=== PATIENT | female | born 1970 | race Caucasian/White ===

== ENCOUNTER 2023-01-20 08:08 | Outpatient (OUT) | payer OTHER, SELFPAY | END 2023-01-20 08:09 | disposition home or self-care (01) | LOC: VC 08:09 | PROVIDERS: PCP Radiology Diagnostic Radiology; Visit Provider Radiology Diagnostic Radiology | DX: I83.813 Varicose veins of bilateral lower extremities with pain (principal) ==

== ENCOUNTER 2023-02-05 07:57 | Outpatient (OUT) | payer OTHER, SELFPAY ==
--- NOTE | 2023-02-05 07:58 | VEIN_ITS ---
Patient: NICOLE DOWLING Exam Date: 02/05/2023 : 1970 Gender:F Ordering : DR HEMAL JONES M.D. Admission #: [id number] Family : Order #: [id number] CLICK HERE TO VIEW EXAM RADIOLOGY REPORT PROCEDURE: VC EXT VENOUS REFLUX FELTON LMTD COMPARISON: None. INDICATIONS: I83.813 Pain due to varicose veins of bilateral legs TECHNIQUE: Duplex imaging of the lower extremity to assess the deep and superficial venous system for the presence of deep or superficial venous incompetence and to document the location and severity of disease. The study includes evaluation of the great saphenous vein (GSV), anterior accessory saphenous vein (AASV) and small saphenous vein (SSV). Patient scanned in reverse Trendelenburg and standing. FINDINGS: RIGHT LOWER EXTREMITY: Saphenofemoral Junction Reflux: Yes 9.9mm 3.5 sec GSV: Diam (mm) Reflux/ Time (sec) Proximal Thigh 8.3 Yes 3.3 Mid Thigh 5.2 Yes 2.5 Distal Thigh 3.3 Yes 2.1 Prox Calf 2.6 Yes 0.8 Mid Calf 3.6 Yes 2.1 Saphenopopliteal Junction Reflux: 4.1mm Yes 1.3 SSV: Proximal Calf 4.2 Yes 0.7 Mid Calf 3.3 Yes 1.1 AASV: Not present Proximal Thigh Mid Thigh Distal Thigh Thrombi: No acute or chronic thrombus. Compressibility: Normal. Flow: Mild-moderate deep venous reflux. Preforator: Dist medial lower leg 2.9 mm with 1.6s reflux. Popliteal fossa 3.1 mm with 0.6s reflux. Tech Note: Incompetent varicose vein distal anterior thigh measures 3.4 mm with 3.3s reflux. Varicose vein in popliteal fossa arising from scada engineer measures 2.3 mm with 0.3s reflux. Mid medial lower leg varicose vein measures 4.0 mm with 1.6s reflux. LEFT LOWER EXTREMITY: Saphenofemoral Junction Reflux: Yes 9.5 mm 2.7 sec GSV: Diam (mm) Reflux/Time (sec) Proximal Thigh 7.7 Yes 2.9 Mid Thigh 4.3 Yes 1.3 Distal Thigh 4.0 Yes 1.1 Prox Calf 2.5 Yes 0.4 Mid Calf 1.8 Yes 0.4 Saphenopopliteal Junction Relux: 3.0 mm Yes 3.3 SSV: Proximal Calf 2.4 Yes 0.5 Mid Calf 2.2 Yes 0.2 AASV: Proximal Thigh 3.6 No Mid Thigh 1.9 No Distal Thigh Thrombi: No acute or chronic thrombus. Compressibility: Normal. Flow: Mild deep venous reflux. Paint Laboratory Technician: Dist medial lower leg measures 3.4mm with 0.7s reflux. Proximal medial calf measures 4.1 mm with 0.7s reflux. Tech Note: Incompetent varicose vein proximal medial lower leg measures 2.8 mm with 4.1s reflux. Distal medial lower leg varicosity measures 2.6 mm with 0.6s reflux. CONCLUSION: 1. Abnormally dilated and incompetent great saphenous veins bilaterally. 2. Multiple dilated and incompetent branch saphenous varicosities bilaterally. Dictated by: Binh Grimes M.D. on 02/05/2023 at 09:46 Approved by: Binh Grimes M.D. on 02/05/2023 at 10:16
--- NOTE | 2023-02-05 07:58 | VEIN_ITS ---
Patient: NICOLE DOWLING Exam Date: 02/05/2023 : 1970 Gender:F Ordering : DR HEMAL JONES M.D. Admission #: [id number] Family : Order #: [id number] CLICK HERE TO VIEW EXAM RADIOLOGY REPORT PROCEDURE: [facility]ACILITY EST COMPREHENSIVE VEIN CENTER - OFFICE VISIT INITIAL COMPARISON: None. PROGRESS NOTES: [age] year old female who presents with a 35 year history of dilated discolored veins and mild leg swelling. The patient's right leg symptoms are worse than the left. There has been a progression of symptoms over past 35 years. This increases with prolonged leg dependency. The patient describes an improvement with rest, elevation, and exercise. The patient denies any signs and symptoms to suggest arterial ischemia. The patient describes a family history varicose veins on maternal side and and siblings. The patient has drinking and smoking history of : Occasional alcohol consumption; no tobacco use. Patient has a past medical history significant for soft: None. The patient denies a history of deep venous thrombus or pulmonary embolus. See separate history and physical for medication list. No prior treatment for varicose or spider veins. Current use of compression stockings. After review of nurse notes, history and physical exam I discussed at length the pathophysiology of venous hypertension and possible treatments, therapies and strategies available. We discussed at length the importance of elevating the lower extremities above the level of the heart, increased physical activity and compression stocking use. Ultrasound venous reflux study performed today was discussed at length with the patient. The report demonstrates abnormally dilated and incompetent great saphenous vein bilaterally with multiple dilated and incompetent branch saphenous varicosities bilaterally.. PHYSICAL EXAM: The right leg demonstrates multiple varicosities, enumerable spider veins, no ulceration, mild edema, no skin discoloration. The left leg demonstrates multiple varicosities, enumerable spider veins, no ulceration, mild edema, no skin discoloration. Both thighs, legs and feet were symmetrically warm to the touch. Good posterior tibial and dorsalis pedis pulses were present bilaterally. VEIN/[facility] Facility EST Comprehensive IMPRESSION: 1. Bilateral lower extremity venous insufficiency 2. Bilateral lower extremity varicose veins 3. Mild bilateral lower extremity subcutaneous edema 4. No flow significant arterial disease 5. CEAP: C3, EC, , VT PLAN: 1. Continued use of compression stockings 2. Elevated legs and increased physical activity symptomatic relief 3. Endovenous laser ablation of right great saphenous vein. 4. Microfoam chemical ablation of incompetent branch saphenous varicosities bilaterally. 5. Bilateral sclerotherapy for extensive reticular and spider veins. Nurse notes, history and physical were reviewed and confirmed, see attached forms. The nurse was present throughout the physical exam and consultation Dictated by: Binh Grimes M.D. on 02/05/2023 at 10:41 Approved by: Binh Grimes M.D. on 02/05/2023 at 10:50
== END 2023-02-05 07:58 | disposition home or self-care (01) ==
LOC: VC 07:57
PROVIDERS: PCP Radiology Diagnostic Radiology; Visit Provider Radiology Diagnostic Radiology
DX: I83.813 Varicose veins of bilateral lower extremities with pain (principal)
CPT/HCPCS: 93970; G0463

== ENCOUNTER 2023-03-14 08:33 | Outpatient (OUT) | payer OTHER, SELFPAY ==
--- NOTE | 2023-03-14 08:34 | VEIN_ITS ---
[address] [address] Patient Name: NICOLE DOWLING MRN: [id number] date: 1970 Sex: F Assigned Patient Location: Current Patient Location: Accession/Order Number: [id number] Exam Date: 03/14/2023 08:35 Report Date: 03/14/2023 09:55 At the request of: HEMLA JONES Procedure: VC Endovenous Ablation 1VeinRT EXAMINATION: VC Endovenous Ablation 1VeinRT HISTORY: I83.813 Painful varicose veins of bilat lower extremities The risks and benefits of the procedure had been previously discussed, and were rediscussed at length. Informed written consent was obtained. Román Bundy RN and Kisha Sarah RDMS, RVT assisted. Time out procedure was performed. The right lower extremity was prepared and draped in the usual sterile fashion to allow knee flexion in the sterile field. Duplex ultrasound probe was draped in a sterile cover, sterile transmission gel was used. Venous mapping was performed with the areas of dilation and large tributaries marked. The total length was 58 cm from the entry 6 cm above the ankle to 3 cm below the Saphenofemoral junction. The diameter of the right great saphenous vein ranged from 8.3 mm. A 30 gauge needle and 1% buffered lidocaine was used to anesthetize the entry site. A 4 mm incision was made with a scalpel and the saphenous vein was entered percutaneously under direct ultrasound guidance with a micropuncture set, a single stick was successful in gaining access. A micro-guide wire was inserted and the needle removed. A micro-set including a dilator was inserted over the microwire and the needle and dilator were removed. A guide wire was inserted through the micro-set and guided through the saphenous vein to the saphenofemoral junction. The dilator was removed and an introducer sheath was inserted over the wire until the end of the sheath entered the saphenofemoral junction. The dilator and wire were removed and the 600 micron fiber was introduced and placed and positioned so that it extended beyond the sheath and was 3 cm distal to the saphenofemoral or saphenopopliteal junction. Final position of the fiber was determined by ultrasound guidance and duplex imaging. Tumescent anesthetic was delivered by ultrasound guidance. 325 cc of fluid was delivered along the entire course of the saphenous vein. The solution consisted of 1000 cc of normal saline with 40 mL of 1% lidocaine and 20 mL of sodium bicarbonate. A final positioning check was made. The energy source was turned on by means of the foot pedal and the fiber and sheath were withdrawn. The total number of Joules delivered was 2856. The laser was active for 357 seconds under continuous pulse, average laser use of 8 J. Laser start time 9:40 AM, 03/14/2023. Laser stop time 9:49 AM, 03/14/2023. A duplex ultrasound revealed compressibility and flow at the saphenofemoral junction immediately after the procedure. Hemostasis at the access site was achieved. The skin incision of the saphenous vein was closed with a 4 x 4. A compression stocking was applied. Postop instructions were given. A follow up appointment was recommended and scheduled. The patient tolerated the procedure well. Electronically authenticated by: RIDDHI REIS Date: 03/14/2023 09:55
[2023-03-14] MEDS: 0.9 % SODIUM CHLORIDE 500 ML, LIDOCAINE HCL 20 ML, SODIUM BICARBONATE 10 MEQ INJ (09:02)
== END 2023-03-14 08:34 | disposition home or self-care (01) ==
LOC: VC 08:33
PROVIDERS: PCP Radiology Diagnostic Radiology; Visit Provider Radiology Diagnostic Radiology
DX: I83.813 Varicose veins of bilateral lower extremities with pain (principal)
CPT/HCPCS: 36478

== ENCOUNTER 2023-03-21 10:51 | Outpatient (OUT) | payer OTHER, SELFPAY ==
--- NOTE | 2023-03-21 10:59 | VEIN_ITS ---
Patient: NICOLE DOWLING Exam Date: 03/21/2023 : 1970 Gender:F Ordering : DR ELIJAH COCHRAN M.D. Admission #: [id number] Family : Order #: [id number] CLICK HERE TO VIEW EXAM RADIOLOGY REPORT PROCEDURE: [facility]ACILITY EST LMTD VEIN CENTER - OFFICE VISIT FOLLOW UP COMPARISON: None. PROGRESS NOTES: The patient reports no significant problems following intravenous laser ablation of the right great saphenous vein. The patient did not require oral analgesics. The patient has worn her compression stocking. The patient has followed our recommendations to walk 20-30 minutes once or twice per day since the procedure. Physical exam demonstrates a few small areas of bruising likely related to tumescence injection. Thrombosed right great saphenous vein can be partially palpated. No areas of erythema or warmth to suggest cellulitis. No active ulceration. Review of the ultrasound performed the same day demonstrates occlusive thrombus extending throughout the treated right great saphenous vein. Heat induced thrombus is 2.5 cm from the saphenofemoral junction. No deep vein thrombus The patient expressed a desire to proceed with treatment of incompetent right leg varicose veins with micro foam chemical ablation. The patient would like to delay treatment of the left leg at this time. VEIN/VC Facility EST LMTD IMPRESSION: 1. Successful ablation of the right great saphenous vein 2. Persistent bilateral incompetent varicose veins. PLAN: Micro foam chemical ablation right leg incompetent varicose veins Nurse notes, history and physical were reviewed and confirmed, see attached forms. The nurse was present throughout the physical exam and consultation Dictated by: Elijah Cochran MD on 03/21/2023 at 12:43 Approved by: Elijah Cochran MD on 03/21/2023 at 12:48
--- NOTE | 2023-03-21 10:59 | VEIN_ITS ---
Patient: NICOLE DOWLING Exam Date: 03/21/2023 : 1970 Gender:F Ordering : DR ELIJAH COCHRAN M.D. Admission #: [id number] Family : Order #: [id number] CLICK HERE TO VIEW EXAM RADIOLOGY REPORT PROCEDURE: VC EXT VENOUS RT LMTD COMPARISON: None. INDICATIONS: I80.01 Phlebitis of superficial veins of right lower extremity TECHNIQUE: Lower extremity mckenna scale and Duplex Doppler evaluation of the deep venous system from the inguinal ligament through the calf veins. FINDINGS: REGION: Right lower extremity. THROMBI: Negative for DVT. Heat induced thrombus in right GSV 2.5 cm from SFJ and extends to distal lower leg. COMPRESSIBILITY: Non-compressible segments corresponding to thrombus. FLOW: Absent flow corresponding to thrombus OTHER: Multiple small varicosities remain. CONCLUSION: Post ablation occlusion of the right great saphenous vein with heat induced thrombus 2.5 cm from the saphenofemoral junction Dictated by: Elijah Cochran MD on 03/21/2023 at 11:19 Approved by: Elijah Cochran MD on 03/21/2023 at 11:21
== END 2023-03-21 10:52 | disposition home or self-care (01) ==
LOC: VC 10:52
PROVIDERS: PCP Radiology Diagnostic Radiology; Visit Provider Radiology Diagnostic Radiology
DX: I80.01 Phlebitis and thrombophlebitis of superficial vessels of right lower extremity (principal)
CPT/HCPCS: 93971; G0463

== ENCOUNTER 2023-03-25 10:34 | Outpatient (OUT) | payer OTHER, SELFPAY ==
--- NOTE | 2023-03-25 | VEIN_ITS ---
[address] [address] Patient Name: NICOLE DOWLING MRN: [id number] date: 1970 Sex: F Assigned Patient Location: Current Patient Location: Accession/Order Number: [id number] Exam Date: 03/25/2023 10:40 Report Date: 03/25/2023 15:07 At the request of: HEMAL JONES Procedure: VC INJ Foam Sclerosant WUS TOBACCO STEMMER MACHINE PROCEDURE: VC INJ Foam Sclerosant WUS TOBACCO STEMMER MACHINE COMPARISON: None. HISTORY: Pain due to varicose veins of bilateral legs I83.813 Pre-operative Diagnosis: CEAP class C3 venous insufficiency with pain, tenderness, edema and incompetent saphenous in varicose vein(s), chronic venous insufficiency right leg secondary to venous incompetence Post-operative Diagnosis: CEAP class C3 venous insufficiency with pain, tenderness, edema and incompetent saphenous in varicose vein(s), chronic venous insufficiency right leg secondary to venous incompetence Procedure Performed: 1. Ultrasound-guided microfoam chemical ablation with Varithenaregistered 2. Intraoperative ultrasound guidance Anesthesia: None Indications for Procedure: 52-year-old female who presents with lower extremity pain and swelling. The patient failed year conservative medical therapy including medical compression stockings, exercise and analgesics. Prior procedures include . Multiple incompetent varicosities of the right leg. Duplex scan showed reflux and enlarged diameters up to 4 mm. The patient underwent informed consent including management options where the complications of infection, bleeding, pain, and skin injury were discussed. Particular attention was spent discussing thrombus extension and deep vein thrombosis as well as the possibility of pulmonary embolus and treatment with oral or injectable blood thinners. Procedure: The patient walked to the procedure room. All applicable staff donned appropriate apparel. A procedure timeout was performed to confirm correct patient, correct extremity, correct procedure, and correct room set-up including presence of all applicable supplies, devices, and drugs. A duplex ultrasound, performed by myself confirmed the location and incompetence of branch saphenous varicosities and their course was marked on the skin together with the dilated tributaries. The extent of treatment of the vein and the associated varicosities was determined through ultrasound mapping. The skin was prepped and then punctured with a butterfly needle and advanced under ultrasound guidance. The Varithenaregistered canister was activated and the canister was primed and purged as required in the instructions for use. Varithenaregistered was drawn into a sterile syringe. Following the injections are made: 6 cc right distal medial leg 4 cc right mid medial thigh 2 cc right lateral medial lower leg 1 cc anterior lateral thigh 2 cc anterior mid thigh Varithenaregistered was slowly administered at 0.5-1.0 cc/second with close observation by ultrasound of its course in the vessels. Total volume utilized was: 15 cc. Following administration of Varithenaregistered the leg was elevated and the patient was asked to repeatedly dorsiflex the ankle to limit flow of Varithenaregistered into perforating veins. Once appropriate spasm had been confirmed in the treated veins, the vascular catheter was removed from the leg and light pressure was applied over the puncture site for hemostasis. The common femoral and deep superficial veins were then evaluated for flow and compressibility prior to dressing placement. The lower extremity was kept elevated at 45 degrees above the horizontal and cording material was applied over the saphenous segments and tributaries to allow for eccentric compression over the target vessels including the targeted saphenous vein(s). A multilayer dressing was applied consisting of foam pads, coban and thigh-high 20-30 mm Hg compression elastic support hose were placed on the patient. The leg was lowered only after compression had been applied and the patient was immediately ambulatory. The patient ambulated 10 minutes under supervision and was without apparent concerns at time of release. Post-care instructions include advising patient to keep post-treatment bandages in place and dry for 48 hours, avoid extended periods of inactivity, avoid heavy exercise for one week, wear compression stockings on the treated leg continuously for two weeks, to walk daily for 10 minutes over the next month. The patient was instructed to take an anti-inflammatory medicine as needed and to follow up for color duplex scan of the Saphenous veins, the treated branch saphenous varicosities, the adjacent deep veins, and additional treatment within 7 days. PERSONNEL: Rafia Dan RN Electronically authenticated by: HEMAL JONES Date: 03/25/2023 15:07
== END 2023-03-25 10:35 | disposition home or self-care (01) ==
LOC: VC 10:35
PROVIDERS: PCP Radiology Diagnostic Radiology; Visit Provider Radiology Diagnostic Radiology
DX: I83.813 Varicose veins of bilateral lower extremities with pain (principal)
CPT/HCPCS: 36466

== ENCOUNTER 2023-03-31 11:27 | Outpatient (OUT) | payer OTHER, SELFPAY ==
--- NOTE | 2023-03-31 11:29 | VEIN_ITS ---
Patient: NICOLE DOWLING Exam Date: 03/31/2023 : 1970 Gender:F Ordering : DR ELIJAH COCHRAN M.D. Admission #: [id number] Family : Order #: [id number] CLICK HERE TO VIEW EXAM RADIOLOGY REPORT PROCEDURE: [facility] EST LMTD VEIN CENTER - OFFICE VISIT FOLLOW UP [facility]PARISON: [facility]. PROGRESS NOTES: The patient reports no significant problems following micro chemical ablation of right leg incompetent varicose veins. The patient did wear her compression stockings. The patient complains of some minor pain but did not require oral analgesics. The patient has followed our recommendations to walk 20-30 minutes once or twice per day since the procedure. Physical exam demonstrates 3 areas of bruising in the right thigh the largest measuring 4 cm in diameter. Scattered thrombosed varicose veins both patent and thrombosed can be palpated. No areas of erythema or warmth to suggest cellulitis or thrombophlebitis. No active ulceration Review of the ultrasound performed the same day demonstrates occlusive thrombus extending throughout the treated right leg varicose veins. Bilateral incompetent varicose veins remain. The patient expressed a desire to proceed with treatment of incompetent varicose veins with micro foam chemical ablation. VEIN/[facility] EST TD IMPRESSION: 1. Successful ablation of treated right leg incompetent varicose veins 2. Persistent bilateral incompetent varicose veins. PLAN: Micro foam chemical ablation bilateral incompetent varicose veins Nurse notes, history and physical were reviewed and confirmed, see attached forms. The nurse was present throughout the physical exam and consultation Dictated by: Elijah Cochran MD on 03/31/2023 at 14:15 Approved by: Elijah Cochran MD on 03/31/2023 at 14:17
--- NOTE | 2023-03-31 11:29 | VEIN_ITS ---
Patient: NICOLE DOWLING Exam Date: 03/31/2023 : 1970 Gender:F Ordering : DR ELIJAH COCHRAN M.D. Admission #: [id number] Family : Order #: [id number] CLICK HERE TO VIEW EXAM RADIOLOGY REPORT PROCEDURE: VC EXT VENOUS RT LMTD COMPARISON: VC EXT VENOUS RT LMTD, 03/21/2023. INDICATIONS: I80.01 Phlebitis of superficial veins of rt lower extremity TECHNIQUE: Lower extremity mckenna scale and Duplex Doppler evaluation of the deep venous system from the inguinal ligament through the calf veins. FINDINGS: REGION: Right lower extremity. THROMBI: Negative for DVT. Varithena induced thrombus visualized at mid/med calf, mid/ant calf, mid/ant thigh, and mid/lat thigh. COMPRESSIBILITY: Non-compressible segments. FLOW: Areas of no flow. OTHER: Multiple varicose veins remain with the largest measuring 3.4mm with 1.1s reflux. CONCLUSION: Post ablation occlusion of treated right leg varicose veins Dictated by: Elijah Cochran MD on 03/31/2023 at 11:52 Approved by: Elijah Cochran MD on 03/31/2023 at 11:54
== END 2023-03-31 11:28 | disposition home or self-care (01) ==
LOC: VC 11:27
PROVIDERS: PCP Radiology Diagnostic Radiology; Visit Provider Radiology Diagnostic Radiology
DX: I80.01 Phlebitis and thrombophlebitis of superficial vessels of right lower extremity (principal); I83.93 Asymptomatic varicose veins of bilateral lower extremities
CPT/HCPCS: 93971; G0463

== ENCOUNTER 2023-04-16 09:11 | Outpatient (OUT) | payer OTHER, SELFPAY ==
--- NOTE | 2023-04-16 | VEIN_ITS ---
[address] [address] Patient Name: NICOLE DOWLING MRN: [id number] date: 1970 Sex: F Assigned Patient Location: Current Patient Location: Accession/Order Number: [id number] Exam Date: 04/16/2023 08:55 Report Date: 04/16/2023 10:47 At the request of: HEMAL JONES Procedure: VC INJ Foam Sclerosant WUS BIBLICAL STUDIES PROFESSOR PROCEDURE: VC INJ Foam Sclerosant WUS BIBLICAL STUDIES PROFESSOR, right leg No charge for the left leg COMPARISON: None. HISTORY: Pain due to varicose veins of bilateral legs I83.813 Pre-operative Diagnosis: CEAP class C3 venous insufficiency with pain, tenderness, edema and incompetent right great saphenous and varicose vein(s), chronic venous insufficiency right leg secondary to venous incompetence Post-operative Diagnosis: CEAP class C3 venous insufficiency with pain, tenderness, edema and incompetent right great saphenous and varicose vein(s), chronic venous insufficiency right leg secondary to venous incompetence Procedure Performed: 1. Ultrasound-guided microfoam chemical ablation with Varithenaregistered 2. Intraoperative ultrasound guidance Anesthesia: None Indications for Procedure: 52-year-old female who presents with a long history of lower extremity pain and swelling. The patient failed conservative medical therapy including medical compression stockings, exercise and analgesics. Prior procedures include . Multiple incompetent varicosities of the right leg. Duplex scan showed reflux and enlarged diameters up to 4 mm. The patient underwent informed consent including management options where the complications of infection, bleeding, pain, and skin injury were discussed. Particular attention was spent discussing thrombus extension and deep vein thrombosis as well as the possibility of pulmonary embolus and treatment with oral or injectable blood thinners. Procedure: The patient walked to the procedure room. All applicable staff donned appropriate apparel. A procedure timeout was performed to confirm correct patient, correct extremity, correct procedure, and correct room set-up including presence of all applicable supplies, devices, and drugs. A duplex ultrasound, performed by myself confirmed the location and incompetence of branch saphenous varicosities and their course was marked on the skin together with the dilated tributaries. The extent of treatment of the vein and the associated varicosities was determined through ultrasound mapping. The skin was prepped and then punctured with a butterfly needle and advanced under ultrasound guidance. The Varithenaregistered canister was activated and the canister was primed and purged as required in the instructions for use. Varithenaregistered was drawn into a sterile syringe. The following injections were made: 4 cc of left mid posterior calf, 3 mm vein 3 cc left proximal calf, 3 mm veins 3 cc right proximal calf, 3 mm vein 4 cc left posterior lateral thigh, 4 mm vein Varithenaregistered was slowly administered at 0.5-1.0 cc/second with close observation by ultrasound of its course in the vessels. Total volume utilized was: 15cc. Following administration of Varithenaregistered the leg was elevated and the patient was asked to repeatedly dorsiflex the ankle to limit flow of Varithenaregistered into perforating veins. Once appropriate spasm had been confirmed in the treated veins, the vascular catheter was removed from the leg and light pressure was applied over the puncture site for hemostasis. The common femoral and deep superficial veins were then evaluated for flow and compressibility prior to dressing placement. The lower extremity was kept elevated at 45 degrees above the horizontal and cording material was applied over the saphenous segments and tributaries to allow for eccentric compression over the target vessels including the targeted saphenous vein(s). A multilayer dressing was applied consisting of foam pads, coban and thigh-high 20-30 mm Hg compression elastic support hose were placed on the patient. The leg was lowered only after compression had been applied and the patient was immediately ambulatory. The patient ambulated 10 minutes under supervision and was without apparent concerns at time of release. Post-care instructions include advising patient to keep post-treatment bandages in place and dry for 48 hours, avoid extended periods of inactivity, avoid heavy exercise for one week, wear compression stockings on the treated leg continuously for two weeks, to walk daily for 10 minutes over the next month. The patient was instructed to take an anti-inflammatory medicine as needed and to follow up for color duplex scan of the Saphenous veins, the treated branch saphenous varicosities, the adjacent deep veins, and additional treatment within 7 days. PERSONNEL: Román Bundy RN Electronically authenticated by: HEMAL JONES Date: 04/16/2023 10:47
== END 2023-04-16 09:12 | disposition home or self-care (01) ==
LOC: VC 09:11
PROVIDERS: PCP Radiology Diagnostic Radiology; Visit Provider Radiology Diagnostic Radiology
DX: I83.813 Varicose veins of bilateral lower extremities with pain (principal)
CPT/HCPCS: 36466

== ENCOUNTER 2023-04-23 08:27 | Outpatient (OUT) | payer OTHER, SELFPAY ==
--- NOTE | 2023-04-23 08:32 | VEIN_ITS ---
Patient Name NICOLE DOWLING MR# Age Sex Date Time [id number] F 04/23/2023 08:35 At the Request Of DR HEMAL JONES M.D. RADIOLOGY REPORT PROCEDURE: VC EXT VENOUS RT LMTD COMPARISON: VC EXT VENOUS RT LMTD, 03/31/2023. INDICATIONS: Phlebitis of superficial vein of rt lower extremity I80.01 TECHNIQUE: Lower extremity mckenna scale and Duplex Doppler evaluation of the deep venous system from the inguinal ligament through the calf veins. FINDINGS: REGION: Right lower extremity. THROMBI: Negative for DVT. Areas treated with Varithena/microfoam are seen with echogenic thrombus COMPRESSIBILITY: Non-compressible segments corresponding to thrombus FLOW: Areas of no flow corresponding to thrombus OTHER: Patent varicose vein is visualized on the proximal medial lower leg measuring 4.0 mm with 3.1 s of reflux. Patent varicose vein on the posterior knee measures 4.3 mm with 1.7s of reflux. CONCLUSION: 1. Successful post ablation occlusion of treated branch saphenous varicosities. 2. Remaining varicosities within right leg in need of microfoam chemical ablation. Dictated by: Binh Grimes M.D. on 04/23/2023 at 09:32 Approved by: Binh Grimes M.D. on 04/23/2023 at 10:21
--- NOTE | 2023-04-23 08:32 | VEIN_ITS ---
Patient Name NICOLE DOWLING MR# Age Sex Date Time [id number] F 04/23/2023 08:32 At the Request Of DR HEMAL JONES M.D. RADIOLOGY REPORT PROCEDURE: [facility] LMTD VEIN CENTER - OFFICE VISIT FOLLOW UP COMPARISON: [facility], 03/31/2023. PROGRESS NOTES: The patient reports improvement in leg symptoms. There has been interval reduction in varicosities. The patient has followed our recommendations to walk 20-30 minutes once or twice per day since the procedure. Physical exam demonstrates decrease in varicosities of the leg. Persistent incompetent varicosities are identified along the right leg. Review of the ultrasound performed the same day demonstrates occlusive thrombus extending throughout the treated vein(s), see separate report, consistent with a successful ablation. No thrombus extending into or beyond the saphenofemoral junction. The patient expressed a desire to proceed with treatment of remaining incompetent varicosities. The patient was informed that treatment was a process and would require approximately 1 more procedures[facility]sessions[facility]: 1. Successful ablation of the bilateral treated branch saphenous vein(s). 2. Persistent incompetent right leg varicose veins and mild symptoms. PLAN: Microfoam chemical ablation of right leg remaining branch saphenous varicosities. Nurse notes, history and physical were reviewed and confirmed, see attached forms. The nurse was present throughout the physical exam and consultation Dictated by: Binh Grimes M.D. on 04/23/2023 at 10:21 Approved by: Binh Grimes M.D. on 04/23/2023 at 10:23
== END 2023-04-23 08:28 | disposition home or self-care (01) ==
LOC: VC 08:27
PROVIDERS: PCP Radiology Diagnostic Radiology; Visit Provider Radiology Diagnostic Radiology
DX: I80.01 Phlebitis and thrombophlebitis of superficial vessels of right lower extremity (principal)
CPT/HCPCS: 93971; G0463

== ENCOUNTER 2023-05-07 08:58 | Outpatient (OUT) | payer OTHER, SELFPAY ==
--- NOTE | 2023-05-07 09:02 | VEIN_ITS ---
[address] [address] Patient Name: NICOLE DOWLING MRN: [id number] date: 1970 Sex: F Assigned Patient Location: Current Patient Location: Accession/Order Number: [id number] Exam Date: 05/07/2023 09:02 Report Date: 05/07/2023 10:20 At the request of: HEMAL JONES Procedure: VC INJ Foam Sclerosant WUS TUBE TESTER PROCEDURE: VC INJ Foam Sclerosant WUS TUBE TESTER HISTORY: Pain due to varicose veins of bilateral legs I83.813 Pre-operative Diagnosis: CEAP class C3 venous insufficiency with pain, tenderness, edema and incompetent branch saphenous vein(s), chronic venous insufficiency right leg secondary to venous incompetence Post-operative Diagnosis: CEAP class C3 venous insufficiency with pain, tenderness, edema and incompetent branch saphenous vein(s), chronic venous insufficiency right leg secondary to venous incompetence Procedure Performed: 1. Ultrasound-guided microfoam chemical ablation with Varithenaregistered 2. Intraoperative ultrasound guidance Physician: Binh Grimes M.D. Anesthesia: None Indications for Procedure: 52 year old female. Symptoms including lower extremity pain, swelling, cramping, dilated bulging veins for many years despite conservative medical therapy including medical compression stockings, exercise and analgesics. Prior procedures include [endovenous laser ablation and microfoam chemical ablation. Multiple incompetent varicosities of the right leg. Duplex scan showed reflux and enlarged diameters up to 4.1 mm. The patient underwent informed consent including management options where the complications of infection, bleeding, pain, and skin injury were discussed. Particular attention was spent discussing thrombus extension and deep vein thrombosis as well as the possibility of pulmonary embolus and treatment with oral or injectable blood thinners. Procedure: The patient walked to the procedure room. All applicable staff donned appropriate apparel. A procedure timeout was performed to confirm correct patient, correct extremity, correct procedure, and correct room set-up including presence of all applicable supplies, devices, and drugs. A duplex ultrasound, performed by myself confirmed the location and incompetence of branch saphenous varicosities and their course was marked on the skin together with the dilated tributaries. The extent of treatment of the vein and the associated varicosities was determined through ultrasound mapping. The skin was prepped and then punctured with a butterfly needle and advanced under ultrasound guidance. The Varithenaregistered canister was activated and the canister was primed and purged as required in the instructions for use. Varithenaregistered was drawn into a sterile syringe. Varithenaregistered was slowly administered at 0.5-1.0 cc/second with close observation by ultrasound of its course in the vessels. Total volume utilized was: 11 mL (7 mL into a 4.1 mm varicosity medial to the right knee; 2 mL into distal lateral right thigh reticular veins; 2 mL into the proximal lateral right thigh reticular veins). Following administration of Varithenaregistered the leg was elevated and the patient was asked to repeatedly dorsiflex the ankle to limit flow of Varithenaregistered into perforating veins. Once appropriate spasm had been confirmed in the treated veins, the vascular catheter was removed from the leg and light pressure was applied over the puncture site for hemostasis. The common femoral and deep superficial veins were then evaluated for flow and compressibility prior to dressing placement. The lower extremity was kept elevated at 45 degrees above the horizontal and cording material was applied over the saphenous segments and tributaries to allow for eccentric compression over the target vessels including the targeted saphenous vein(s). A multilayer dressing was applied consisting of foam pads, coban and thigh-high 20-30 mm Hg compression elastic support hose were placed on the patient. The leg was lowered only after compression had been applied and the patient was immediately ambulatory. The patient ambulated 10 minutes under supervision and was without apparent concerns at time of release. Post-care instructions include advising patient to keep post-treatment bandages in place and dry for 48 hours, avoid extended periods of inactivity, avoid heavy exercise for one week, wear compression stockings on the treated leg continuously for two weeks, to walk daily for 10 minutes over the next month. The patient was instructed to take an anti-inflammatory medicine as needed and to follow up for color duplex scan of the Saphenous veins, the treated branch saphenous varicosities, the adjacent deep veins, and additional treatment within 7 days. PERSONNEL: Rafia Dan RN and Thee Bolanos RDMS Electronically authenticated by: BINH GRIMES Date: 05/07/2023 10:20
== END 2023-05-07 08:59 | disposition home or self-care (01) ==
LOC: VC 08:59
PROVIDERS: PCP Radiology Diagnostic Radiology; Visit Provider Radiology Diagnostic Radiology
DX: I83.813 Varicose veins of bilateral lower extremities with pain (principal)
CPT/HCPCS: 36466

== ENCOUNTER 2023-05-14 09:27 | Outpatient (OUT) | payer OTHER, SELFPAY ==
--- NOTE | 2023-05-14 09:29 | VEIN_ITS ---
Patient Name: NICOLE DOWLING MR#: [id number] : 1970 Exam Date: 05/14/2023 Ordering Doctor: DR HEMAL JONES M.D. RADIOLOGY REPORT PROCEDURE: VC EXT VENOUS RT LMTD COMPARISON: VC EXT VENOUS RT LMTD, 04/23/2023. INDICATIONS: Phlebitis of superficial veins of rt lower extremity I80.01 TECHNIQUE: Lower extremity mckenna scale and Duplex Doppler evaluation of the deep venous system from the inguinal ligament through the calf veins. FINDINGS: REGION: Right lower extremity. THROMBI: Negative for DVT. Varithena induced thrombus visualized at medial knee, prox/lat calf, and dist/lat calf. COMPRESSIBILITY: Non-compressible segments corresponding to thrombus FLOW: Areas of no flow corresponding to thrombus OTHER: No patent varicose veins. CONCLUSION: 1. Successful post ablation occlusion of right leg treated branch saphenous varicosities. Dictated by: Binh Grimes M.D. on 05/14/2023 at 09:59 Approved by: Binh Grimes M.D. on 05/14/2023 at 10:00
--- NOTE | 2023-05-14 09:29 | VEIN_ITS ---
Patient Name: NICOLE DOWLING MR#: [id number] : 1970 Exam Date: 05/14/2023 Ordering Doctor: DR HEMAL JONES M.D. RADIOLOGY REPORT PROCEDURE: [facility] L[facility] VEIN C[facility] - OFFICE VISIT FOLLOW UP [facility] PROGRESS NOTES: The patient reports improvement in leg symptoms. There has been interval reduction in varicosities. The patient has followed our recommendations to walk 20-30 minutes once or twice per day since the procedure. Physical exam demonstrates decrease in varicosities of the leg. Persistent spider veins and reticular veins are identified along the legs bilaterally. Review of the ultrasound performed the same day demonstrates occlusive thrombus extending throughout the treated vein(s), see separate report, consistent with a successful ablation. No thrombus extending into or beyond the saphenofemoral junction. The patient expressed a desire to proceed with treatment of bilateral lower extremity spider veins. The patient was informed that treatment was a process and would require approximately 3 procedures[facility]sessions. [facility]: 1. Successful ablation of the treated right leg branch saphenous vein(s). 2. Persistent spider veins bilaterally. PLAN: 1. Bilateral lower extremity sclerotherapy. Nurse notes, history and physical were reviewed and confirmed, see attached forms. The nurse was present throughout the physical exam and consultation Dictated by: Binh Grimes M.D. on 05/14/2023 at 10:00 Approved by: Binh Grimes M.D. on 05/14/2023 at 10:01
== END 2023-05-14 09:28 | disposition home or self-care (01) ==
LOC: VC 09:27
PROVIDERS: PCP Radiology Diagnostic Radiology; Visit Provider Radiology Diagnostic Radiology
DX: I80.01 Phlebitis and thrombophlebitis of superficial vessels of right lower extremity (principal)
CPT/HCPCS: 93971; G0463

== ENCOUNTER 2023-05-23 12:32 | Outpatient (OUT) | payer OTHER, SELFPAY ==
--- NOTE | 2023-05-23 12:37 | VEIN_ITS ---
[address] [address] Patient Name: NICOLE DOWLING MRN: [id number] date: 1970 Sex: F Assigned Patient Location: Current Patient Location: Accession/Order Number: [id number] Exam Date: 05/23/2023 12:37 Report Date: 05/23/2023 13:40 At the request of: HEMAL JONES Procedure: VC INJ Sclerosing SOLMULT Vein EXAMINATION: VC INJ Sclerosing SOLMULT Vein HISTORY: I83.813 Bilateral painful varicose veins COMPARISON: No relevant comparison available. TECHNIQUE: The risks and benefits of the procedure were explained at length to the patient and informed written consent was obtained. Román Bundy was present and assisted. The procedure was performed under sterile technique. The patient's leg was wrapped with Coban and postprocedural verbal and written instructions provided. SCLEROSANT: 4 cc, 0.5% polidocanol VEIN(S) INJECTED: 16 veins in the right leg VISUALIZATION: Ultrasound was not used to visualize the sclerosant ANESTHESIA: Supercooled air COMPLICATIONS: None VEIN/VC INJ Sclerosing SOLMULT Vein IMPRESSION: Technically successful sclerotherapy as described Electronically authenticated by: HEMAL JONES Date: 05/23/2023 13:40
== END 2023-05-23 12:33 | disposition home or self-care (01) ==
LOC: VC 12:33
PROVIDERS: PCP Radiology Diagnostic Radiology; Visit Provider Radiology Diagnostic Radiology
DX: I83.813 Varicose veins of bilateral lower extremities with pain (principal)
CPT/HCPCS: 36471

== ENCOUNTER 2023-05-27 13:03 | Outpatient (OUT) | payer OTHER, SELFPAY ==
--- NOTE | 2023-05-27 | VEIN_ITS ---
[address] [address] Patient Name: NICOLE DOWILNG MRN: [id number] date: 1970 Sex: F Assigned Patient Location: Current Patient Location: Accession/Order Number: [id number] Exam Date: 05/27/2023 13:00 Report Date: 05/27/2023 14:33 At the request of: HEMAL JONES Procedure: VC INJ Sclerosing SOLMULT Vein EXAMINATION: VC INJ Sclerosing SOLMULT Vein HISTORY: Pain due to varicose veins of bilateral legs I83.813 COMPARISON: No relevant comparison available. TECHNIQUE: The risks and benefits of the procedure were explained at length to the patient and informed written consent was obtained. Román Bundy was present and assisted. The procedure was performed under sterile technique. The patient's leg was wrapped with Coban and postprocedural verbal and written instructions provided. SCLEROSANT: 42 cc, 0.5% polidocanol VEIN(S) INJECTED: 2 veins in the left leg VISUALIZATION: Ultrasound was not used to visualize the sclerosant ANESTHESIA: Supercooled air COMPLICATIONS: None VEIN/VC INJ Sclerosing SOLMULT Vein IMPRESSION: Technically successful sclerotherapy as described Electronically authenticated by: HEMAL JONES Date: 05/27/2023 14:33
== END 2023-05-27 13:04 | disposition home or self-care (01) ==
LOC: VC 13:03
PROVIDERS: PCP Radiology Diagnostic Radiology; Visit Provider Radiology Diagnostic Radiology
DX: I83.813 Varicose veins of bilateral lower extremities with pain (principal)
CPT/HCPCS: 36471

== ENCOUNTER 2023-06-05 10:58 | Outpatient (OUT) | payer OTHER, SELFPAY ==
--- NOTE | 2023-06-05 10:59 | VEIN_ITS ---
[address] [address] Patient Name: NICOLE DOWLING MRN: [id number] date: 1970 Sex: F Assigned Patient Location: Current Patient Location: Accession/Order Number: [id number] Exam Date: 06/05/2023 10:59 Report Date: 06/05/2023 11:45 At the request of: HEMAL JONES Procedure: VC INJ Sclerosing SOLMULT Vein EXAMINATION: VC INJ Sclerosing SOLMULT Vein HISTORY: Pain due to varicose veins of bilateral legs I83.813 The risks and benefits of the procedure were explained at length to the patient and informed written consent was obtained. The procedure was performed under sterile technique. The patient's leg was wrapped with Coban and postprocedural verbal and written instructions provided. Román Bundy RN was present and assisted. SCLEROSANT: 2mL 0.5% Polidocanol. VEIN(S) INJECTED: 24 veins in the right leg. VISUALIZATION: Ultrasound was not used to visualize the sclerosant. ANESTHESIA: Supercooled air. COMPLICATIONS: None. Electronically authenticated by: RIDDHI REIS Date: 06/05/2023 11:45
--- OUTSIDE RECORDS SUMMARY | 2023-06-05 11:01 | XMS_ITS | CCD ---
Author Name Unknown Address [address] [place] [address] Organization [facility] Care Team Providers Care Oven Press Tender Name Role Phone Jyoti Lisandro Unavailable [phone] DO Milka Oliva Primary Care Provider DO Milka Oliva Attending Provider Milka Oliva Primary Care Unavailable Milka Oliva Attending Unavailable Milka Oliva Admitting Unavailable Milka Oliva Attending Unavailable Milka Oliva Admitting Unavailable Milka Oliva Primary Care Unavailable Allergies Allergy Classification Reported Allergen(s) Allergy Type Date of Onset Reaction(s) Facility (5 sources) Clindamycin Drug Allergy 03-09-20 19 [facility] (5 sources) Latex Propensity to adverse reactions 03-25-20 17 Unknown, [facility] (4 sources) Penicillin Drug Allergy Unknown [facility] Other (3 sources) Sulfonamides (Antibiotic) Propensity to adverse reactions Unknown [facility] Other (3 sources) non ionic iv dye Propensity to adverse reactions Unknown [facility] Other (1 source) Penicillins Allergy to substance 03-25-20 17 [facility] (1 source) Sulfonamides (Antibiotic) Allergy to substance 03-25- 17 [facility] (1 source) non-ionic IVP dye Allergy to substance 03-25-20 17 Sneezing [facility] (1 source) Iodinated contrast media (substance) Drug allergy Unknown [facility] Other (1 source) Substance with sulfonamide structure and antibacterial mechanism of action (substance) Drug allergy Unknown [facility] Other Medications Current Medications Medication Drug Class(es) Dates Sig (Normalized) Sig (Original) Acetaminophen (4 sources) Tylenol Active [id number] actuat albuterol 0.09 mg/actuat metered dose inhaler (3 sources) beta2-Adrenergic Agonist Start: 09-11-2021 take 2 puff(s) by inhalation every four hours as needed Albuterol Sulfate HFA 108 (90 Base) MCG/ACT 2 puffs as needed Inhalation every 4 hrs for 30 days Aug, Active Start: 09-11-2021 take 2 puff(s) by in halation every four hours as needed Albuterol Sulfate HFA 108 (90 Base) MCG/ACT 2 puffs as needed Inhalation every 4 hrs for 90 day(s) Aug, Active Start: 09-11-2021 take 2 puff(s) by in halation every four hours as needed Albuterol Sulfate HFA 108 (90 Base) MCG/ACT 2 puffs as needed Inhalation every 4 hrs for 90 day(s) Aug, Active Aspir-81 81 MG (2 sources) take 1 tablet by mouth once daily Aspir-81 81 MG 1 tablet Orally Once a day Active atorvastatin 10 mg oral tablet (5 sources) HMG-CoA Reductase Inhibitor Start: 03-25-20 17 take 10 mg by mouth once daily Atorvastatin Active 10 MG PO Daily March 24, 2017 11:00pm 12 hr dilTIAZem hydrochloride 60 mg extended release oral capsule (3 sources) Calcium Channel Yue take 1 capsule by mouth every twenty-four hours dilTIAZem HCl ER 60 MG 1 capsule Orally Once a day Active Emergen-C Immune - (4 sources) Emergen-C Immune - as directed Orally Active ferrous sulfate 325 mg oral tablet (5 sources) Start: 03-25-20 17 take 325 mg by mouth twice daily Ferrous Sulfate Active 325 MG PO Twice daily March 24, 2017 11:00pm Fish Oils (4 sources) take 1 capsule by mouth once daily Fish Oil 1000 MG 1 capsule Orally Once a day Active Ibuprofen (4 sources) Nonsteroidal Anti-inflammatory Drug Motrin Active Lactobacillus acidophilus (4 sources) Acidophilus - as directed Orally Active Multi For Her - (4 sources) Multi For Her - as directed Orally Active Problems Problem Classification Problem Date Documented Da te Episodic/Chronic Acute bronchitis (3 sources) Acute bronchitis; Translations: [Acute bronchitis] Episodic Anal and rectal conditions (3 sources) Anal and rectal polyp; Translations: [Rectal polyp] Episodic Asthma (10 sources) Asthma; Translations: [Asthma, unspecified] Onset: 03-08-2021 Resolved: 03-08-2021 Chronic Deficiency and other anemia (4 sources) Iron deficiency anemia; Translations: [Iron deficiency anemia, unspecified] 03-25-2017 Episodic Hemorrhoids (3 sources) Hemorrhoids; Translations: [Unspecified hemorrhoids] Episodic Nonmalignant breast conditions (1 source) Breast lump; Translations: [Unspecified lump in the left breast, unspecified quadrant] 05-18-2018 Episodic Other lower respiratory disease (3 sources) Other nonspecific abnormal finding of lung field; Translations: [Pulmonary nodules R91.8] Onset: 03-08-2021 Resolved: 03-08-2021 Episodic Other nutritional; endocrine; and metabolic disorders (3 sources) Body mass index 30+ - obesity; Translations: [Body mass index (BMI) 35.0-35.9, adult] Chronic Other screening for suspected conditions (not mental disorders or infectious disease) (1 source) Mammography abnormal; Translations: [Other abnormal and inconclusive findings on diagnostic imaging of breast] 05-14-2018 Episodic Other skin disorders (1 source) Localized swelling, mass and lump, neck; Translations: [Localized swelling, mass and lump, neck] Onset: 05-30-2023 Episodic Results Test Name Value Interpretation Reference Range Facility CT soft tissue neck wo berta 05-30-2023 CT soft tissue neck wo [facility] [place] [address] CT Scan Report Signed Patient: Jessie Dowling MR#: [id number] : 1970 Acct:[id number] Age/Sex: 52 / F ADM Date: 05/30/23 Loc: CT Room: Type: [facility] Attending Dr: Milka Oliva DO Copies to: Marques Oliva Jr, DO Ordering Provider: Marques Oliva Jr, DO Date of Service: 05/30/23 CT/CT soft tissue neck wo con: neck mass CT soft tissue neck wo con 05/30/2023 8:25 AM SIGNS AND SYMPTOMS: Swelling and right-sided neck anteriorly TECHNIQUE: Multidetector CT axial slices of the soft tissues of the neck were obtained without IV contrast . Sagittal and coronal reformats were reconstructed. CT was performed with one or more of the following dose reduction techniques: Automated exposure control, adjustment of the mA and/or kV according to patient size, or use of iterative reconstruction technique. COMPARISON: None FINDINGS: Soft tissues of the orbits are within normal limits. The soft tissues of the infratemporal fossa fossa structures show no acute abnormality. Mucosal surfaces of the nasopharynx, oropharynx, hypopharynx, glottic, and subglottic airways are grossly unremarkable. The parotid glands, submandibular, and the thyroid gland are within normal limits. The carotid and jugular circulations are within normal limits. There is a 3 mm calcified nodule right upper lobe. No acute bony abnormalities are appreciated. Degenerative changes are noted in the cervical spine. The skull base, craniocervical junction, atlantoaxial joints are within normal limits. There is polypoid mucosal thickening in the left maxillary sinus CT/CT soft tissue neck wo con IMPRESSION: No evidence of mass or soft tissue swelling. Impression dictated by: Kana Perkins M.D.05/30/2023 12:51 PM Dictation Location: [place] [address] Transcribed By: [facility] 05/30/23 1251 Dictated By: Kana Perkins II, MD 05/30/23 1245 Signed By: 05/30/23 1251 Normal [facility] Alanine aminotransferase [En zymatic activity/volume] in Serum or PlasmaOrdered By: Marques Oliva on 05-27-2023 ALT [Catalytic activity/Vol] 12 U/L 7-52 [facility] Albumin [Mass/volume] in Ser um or Plasma by Bromocresol green (BCG) dye binding methoOrdered By: Marques Oliva on 05-27-2023 Albumin BCG dye [Mass/Vol] 4.3 g/dL 3.5-5.7 [facility] Alkaline phosphatase [Enzyma tic activity/volume] in Serum or PlasmaOrdered By: Marques Oliva on 05-27-2023 ALP [Catalytic activity/Vol] 68 U/L 34-104 [facility] Aspartate aminotransferase [ Enzymatic activity/volume] in Serum or PlasmaOrdered By: Marques Oliva on 05-27-2023 AST [Catalytic activity/Vol] 16 U/L 13-39 [facility] Basophils Auto (Bld) [#/Vol] Ordered By: Marques Oliva on 05-27-2023 Basophils (Bld) [#/Vol] 0.1 10*3/uL 0.0-0.2 [facility] Basophils/100 WBC Auto (Bld) Ordered By: Marques Oliva on 05-27-2023 Basophils/100 WBC (Bld) 1.1 % . [facility] Bilirubin.total [Mass/volume ] in Serum or PlasmaOrdered By: Marques Oliva on 05-27-2023 Bilirubin [Mass/Vol] 0.3 mg/dL 0.3-1.0 [facility] Calcium [Mass/volume] in Ser um or PlasmaOrdered By: Marques Oliva on 05-27-2023 Calcium [Mass/Vol] 9.6 mg/dL 8.6-10.3 [facility] Carbon dioxide, total [Moles /volume] in Serum or PlasmaOrdered By: Marques Oliva on 05-27-2023 CO2 [Moles/Vol] 27.2 mmol/L 21.0-31.0 [facility] Chloride [Moles/volume] in S vangie or PlasmaOrdered By: Marques Oliva 05-27-2023 Chloride [Moles/Vol] 105 mmol/L 98-107 [facility] Cholesterol [Mass/volume] in Serum or PlasmaOrdered By: Marques Oliva on 05-27-2023 Cholesterol [Mass/Vol] 200 mg/dL 140-200 [facility] Comment on above: Chol less than 200 m g/dl low riskChol 201-239 mg/dl borderline riskChol 240 mg/dl and greater high risk Cholesterol in LDL Calc [Mas s/Vol]Ordered By: Marques Oliva on 05-27-2023 Cholesterol in LDL [Mass/Vol] 106 mg/dL 0-100 [facility] Comment on above: LDL ATP III CLASSIFI CATIONLDL less than 100 mg/dL OptimalLDL 100-129 mg/dL Near or above optimalLDL 130-159 mg/dL Borderline highLDL 160-189 mg/dL HighLDL greater than 189 mg/dL Very high Cholesterol in VLDL Calc [Ma ss/Vol]Ordered By: Marques Oliva on 05-27-2023 Cholesterol in VLDL [Mass/Vol] 22 mg/dL [facility] Complete Blood Count Auto Di ffon 05-27-2023 Basophils (Bld) [#/Vol] 0.1 10*3/uL Normal 0.0-0.2 [facility] Comment on above: Result Comment: PERF ORMED BY: [place] [address] PATHOLOGIST GENERAL MANAGER [employer] CHRIS BONILLA M.D. Performed By: #### V [id number], TSH3, T3T, T4F, LIPID, FE PRO, CMP, CBC #### [address] Basophils/100 WBC (Bld) 1.1 % Normal . [facility] Comment on above: Performed By: #### V [id number], TSH3, T3T, T4F, LIPID, FE PRO, CMP, CBC #### [place] [address] [place] Eosinophils (Bld) [#/Vol] 0.3 10*3/uL Normal 0.0-0.45 [facility] Comment on above: Performed By: #### V [id number], TSH3, T3T, T4F, LIPID, FE PRO, CMP, CBC #### [place] [address] [place] Eosinophils/100 WBC (Bld) 4.4 % Normal . [facility] Comment on above: Performed By: #### V [id number], TSH3, T3T, T4F, LIPID, FE PRO, CMP, CBC #### [address] Erythrocyte distribution width (RBC) [Ratio] 14.8 % Normal 11.9-15.3 [facility] Comment on above: Performed By: #### V [id number], TSH3, T3T, T4F, LIPID, FE PRO, CMP, CBC #### [address] Hematocrit (Bld) [Volume fraction] 35.5 % Normal 34.0-46.4 [facility] Comment on above: Performed By: #### V [id number], TSH3, T3T, T4F, LIPID, FE PRO, CMP, CBC #### [address] Hemoglobin (Bld) [Mass/Vol] 11.9 g/dL Normal 11.8-15.4 [facility] Comment on above: Performed By: #### V [id number], TSH3, T3T, T4F, LIPID, FE PRO, CMP, CBC #### [address] Lymphocytes (Bld) [#/Vol] 1.7 10*3/uL Normal 1.00-4.8 [facility] Comment on above: Performed By: #### V [id number], TSH3, T3T, T4F, LIPID, FE PRO, CMP, CBC #### [address] Lymphocytes/100 WBC (Bld) 26.7 % Normal . [facility] Comment on above: Performed By: #### V [id number], TSH3, T3T, T4F, LIPID, FE PRO, CMP, CBC #### [address] MCH (RBC) [Entitic mass] 27.7 pg Normal 24.7-34.3 [facility] Comment on above: Performed By: #### V [id number], TSH3, T3T, T4F, LIPID, FE PRO, CMP, CBC #### [address] MCV (RBC) [Entitic vol] 82.6 fL Normal 80-100 [facility] Comment on above: Performed By: #### V [id number], TSH3, T3T, T4F, LIPID, FE PRO, CMP, CBC #### [facility] [address] Mean Corpuscular HGB Conc 33.5 g/dL Normal 32.0-35.0 [facility] Comment on above: Performed By: #### V [id number], TSH3, T3T, T4F, LIPID, FE PRO, CMP, CBC #### [facility] [address] [place] [address] [place] Monocytes (Bld) [#/Vol] 0.5 10*3/uL Normal 0.0-0.8 [facility] Comment on above: Performed By: #### V [id number], TSH3, T3T, T4F, LIPID, FE PRO, CMP, CBC #### [facility] [address] Monocytes/100 WBC (Bld) 8.0 % Normal . [facility] Comment on above: Performed By: #### V [id number], TSH3, T3T, T4F, LIPID, FE PRO, CMP, CBC #### [place] [address] [place] Neutrophils (Bld) [#/Vol] 3.9 10*3/uL Normal 1.8-7.7 [facility] Comment on above: Performed By: #### V [id number], TSH3, T3T, T4F, LIPID, FE PRO, CMP, CBC #### [place] [address] [place] Neutrophils/100 WBC (Bld) 59.8 % Normal . [facility] Comment on above: Performed By: #### V [id number], TSH3, T3T, T4F, LIPID, FE PRO, CMP, CBC #### [place] [address] [place] NRBC% 0.1 /100{WBC} Normal 0-0.5 [facility] Comment on above: Performed By: #### V [id number], TSH3, T3T, T4F, LIPID, FE PRO, CMP, CBC #### [facility] [address] Platelet mean volume (Bld) [Entitic vol] 7.4 fL Normal 6.3-10.7 [facility] Comment on above: Performed By: #### V [id number], TSH3, T3T, T4F, LIPID, FE PRO, CMP, CBC #### [facility] [address] Platelets (Bld) [#/Vol] 360 10*3/uL Normal 150-450 [facility] Comment on above: Performed By: #### V [id number], TSH3, T3T, T4F, LIPID, FE PRO, CMP, CBC #### [address] RBC (Bld) [#/Vol] 4.30 10*6/uL Normal 3.60-5.00 [facility] Comment on above: Performed By: #### V [id number], TSH3, T3T, T4F, LIPID, FE PRO, CMP, CBC #### [address] WBC (Bld) [#/Vol] 6.5 10*3/uL Normal 3.8-11.6 [facility] Comment on above: Performed By: #### V [id number], TSH3, T3T, T4F, LIPID, FE PRO, CMP, CBC #### [address] Comprehensive Metabolic Pane mayra 05-27-2023 Albumin [Mass/Vol] 4.3 g/dL Normal 3.5-5.7 [facility] Comment on above: Performed By: #### V [id number], TSH3, T3T, T4F, LIPID, FE PRO, CMP, CBC #### [address] Albumin/Globulin [Mass ratio] 1.7 {ratio} Normal [facility] Comment on above: Performed By: #### V [id number], TSH3, T3T, T4F, LIPID, FE PRO, CMP, CBC #### [facility] [address] ALP [Catalytic activity/Vol] 68 U/L Normal 34-104 [facility] Comment on above: Performed By: #### V [id number], TSH3, T3T, T4F, LIPID, FE PRO, CMP, CBC #### [address] ALT [Catalytic activity/Vol] 12 U/L Normal 7-52 [facility] Comment on above: Performed By: #### V [id number], TSH3, T3T, T4F, LIPID, FE PRO, CMP, CBC #### [address] Anion gap [Moles/Vol] 11.4 mmol/L Normal 6.0-15.0 [facility] Comment on above: Performed By: #### V [id number], TSH3, T3T, T4F, LIPID, FE PRO, CMP, CBC #### [address] AST [Catalytic activity/Vol] 16 U/L Normal 13-39 [facility] Comment on above: Performed By: #### V [id number], TSH3, T3T, T4F, LIPID, FE PRO, CMP, CBC #### [address] Bilirubin [Mass/Vol] 0.3 mg/dL Normal 0.3-1.0 [facility] Comment on above: Performed By: #### V [id number], TSH3, T3T, T4F, LIPID, FE PRO, CMP, CBC #### [address] Calcium [Mass/Vol] 9.6 mg/dL Normal 8.6-10.3 [facility] Comment on above: Performed By: #### V [id number], TSH3, T3T, T4F, LIPID, FE PRO, CMP, CBC #### [address] [place] [address] [place] Chloride [Moles/Vol] 105 mmol/L Normal 98-107 [facility] Comment on above: Performed By: #### V [id number], TSH3, T3T, T4F, LIPID, FE PRO, CMP, CBC #### [facility] [address] CO2 [Moles/Vol] 27.2 mmol/L Normal 21.0-31.0 [facility] Comment on above: Performed By: #### V [id number], TSH3, T3T, T4F, LIPID, FE PRO, CMP, CBC #### [facility] [address] Creatinine [Mass/Vol] 0.89 mg/dL Normal 0.60-1.20 [facility] Comment on above: Performed By: #### V [id number], TSH3, T3T, T4F, LIPID, FE PRO, CMP, CBC #### [facility] [address] GFR/1.73 sq M.predicted MDRD (S/P/Bld) [Vol rate/Area] mL/min/{1.73_m2} [facility] Comment on above: Performed By: #### V [id number], TSH3, T3T, T4F, LIPID, FE PRO, CMP, CBC #### [facility] [address] Globulin (S) [Mass/Vol] 2.6 g/dL Normal [facility] Comment on above: Performed By: #### V [id number], TSH3, T3T, T4F, LIPID, FE PRO, CMP, CBC #### [facility] [address] Glucose [Mass/Vol] 101 mg/dL High 70-100 [facility] Comment on above: Result Comment: Debary Glucose Reference Range is dependent on time and content of last meal. Glucose of more than 200 mg/dL in a nonstressed, ambulatory subject supports the diagnosis of Diabetes Mellitus. ADA recommended reference range Performed By: #### V [id number], TSH3, T3T, T4F, LIPID, FE PRO, CMP, CBC #### [address] Potassium [Moles/Vol] 4.6 mmol/L Normal 3.5-5.1 [facility] Comment on above: Performed By: #### V [id number], TSH3, T3T, T4F, LIPID, FE PRO, CMP, CBC #### [facility] [address] Protein [Mass/Vol] 6.9 g/dL Normal 6.4-8.9 [facility] Comment on above: Performed By: #### V [id number], TSH3, T3T, T4F, LIPID, FE PRO, CMP, CBC #### [address] Sodium [Moles/Vol] 139 mmol/L Normal 136-145 [facility] Comment on above: Performed By: #### V [id number], TSH3, T3T, T4F, LIPID, FE PRO, CMP, CBC #### [facility] [address] [place] [address] Urea nitrogen [Mass/Vol] 16 mg/dL Normal 7-25 [facility] Comment on above: Performed By: #### V [id number], TSH3, T3T, T4F, LIPID, FE PRO, CMP, CBC #### [address] Creatinine [Mass/volume] in Serum or PlasmaOrdered By: Marques Oliva on 05-27-2023 Creatinine [Mass/Vol] 0.89 mg/dL 0.60-1.20 [facility] Eosinophils Auto (Bld) [#/Vo l]Ordered By: Marques Oliva on 05-27-2023 Eosinophils (Bld) [#/Vol] 0.3 10*3/uL 0.0-0.45 [facility] Eosinophils/100 WBC Auto (Bl d)Ordered By: Marques Oliva on 05-27-2023 Eosinophils/100 WBC (Bld) 4.4 % . [facility] Erythrocyte distribution wid th Auto (RBC) [Ratio]Ordered By: Marques Oliva on 05-27-2023 Erythrocyte distribution width (RBC) [Ratio] 14.8 % 11.9-15.3 [facility] FE PROon 05-27-2023 % Iron Saturation 7.9 % Low 20-50 [facility] Comment on above: Performed By: #### V [id number], TSH3, T3T, T4F, LIPID, FE PRO, CMP, CBC #### [facility] [address] Ferritin [Mass/Vol] 8.8 ng/mL Low 11.0-306.8 [facility] Comment on above: Performed By: #### V [id number], TSH3, T3T, T4F, LIPID, FE PRO, CMP, CBC #### [facility] [address] Iron [Mass/Vol] 37 ug/dL Low 50-212 [facility] Comment on above: Performed By: #### V [id number], TSH3, T3T, T4F, LIPID, FE PRO, CMP, CBC #### [facility] [address] Total Iron Binding Capacity 466 ug/dL High 255-450 [facility] Comment on above: Performed By: #### V [id number], TSH3, T3T, T4F, LIPID, FE PRO, CMP, CBC #### [facility] [address] [place] [address] Transferrin [Mass/Vol] 333 mg/dL Normal 203-362 [facility] Comment on above: Performed By: #### V [id number], TSH3, T3T, T4F, LIPID, FE PRO, CMP, CBC #### [place] [address] [place] Ferritin [Mass/volume] in Se rum or PlasmaOrdered By: Marques Oliva on 05-27-2023 Ferritin [Mass/Vol] 8.8 ng/mL 11.0-306.8 [facility] Folate [Mass/volume] in Seru m or PlasmaOrdered By: Marques Oliva on 05-27-2023 Folate [Mass/Vol] 13.7 ng/mL >5.9 [facility] Comment on above: Folate reference ran ge: >5.9 ng/mlThe WHO technical consultation on folate and vitamin [id number] has determined that folate concentrations lessthan 4 ng/ml are considered deficient. Free T4 (Free Thyroxine)on 1 07-28-2022 Free T4 [Mass/Vol] 0.80 ng/dL Normal 0.61-1.12 [facility] Comment on above: Performed By: #### V [id number], TSH3, T3T, T4F, LIPID, FE PRO, CMP, CBC #### [facility] [address] Globulin Calc (S) [Mass/Vol] Ordered By: Marques Oliva on 05-27-2023 Globulin (S) [Mass/Vol] 2.6 g/dL [facility] Glucose [Mass/volume] in Ser um or PlasmaOrdered By: Marques Oliva on 05-27-2023 Glucose [Mass/Vol] 101 mg/dL 70-100 [facility] Comment on above: ADA recommended refe rence rangeRandom Glucose Reference Range is dependent on time and content of last meal. Glucose of more than 200 mg/dL in a nonstressed, ambulatory subject supports the diagnosis of Diabetes Mellitus. Hematocrit Auto (Bld) [Volum e fraction]Ordered By: Marques Oliva on 05-27-2023 Hematocrit (Bld) [Volume fraction] 35.5 % 34.0-46.4 [facility] Hemoglobin [Mass/volume] in BloodOrdered By: Marques Oliva 05-27-2023 Hemoglobin (Bld) [Mass/Vol] 11.9 g/dL 11.8-15.4 [facility] Iron [Mass/volume] in Serum or PlasmaOrdered By: Marques Oliva on 05-27-2023 Iron [Mass/Vol] 37 ug/dL 50-212 [facility] Iron binding capacity [Mass/ volume] in Serum or PlasmaOrdered By: Marques Oliva on 05-27-2023 Iron binding capacity [Mass/Vol] 466 ug/dL 255-450 [facility] Iron saturation [Mass Fracti on] in Serum or PlasmaOrdered By: Marques Oliva on 05-27-2023 Iron saturation [Mass fraction] 7.9 % 20-50 [facility] Leukocytes [#/volume] correc solange for nucleated erythrocytes in Blood by Automated counOrdered By: Marques Oliva on 05-27-2023 WBC corrected for nucl RBC Auto (Bld) [#/Vol] 6.5 10*3/uL 3.8-11.6 [facility] Lipid Panelon 05-27-2023 Cholesterol [Mass/Vol] 200 mg/dL Normal 140-200 [facility] Comment on above: Result Comment: Chol less than 200 mg/dl low risk Chol 201-239 mg/dl borderline risk Chol 240 mg/dl and greater high risk Performed By: #### V [id number], TSH3, T3T, T4F, LIPID, FE PRO, CMP, CBC #### [facility] [address] [place] [phone] [place] Cholesterol in HDL [Mass/Vol] 72 mg/dL Normal 23-92 [facility] Comment on above: Result Comment: HDL CHOL ATP-III CLASSIFICATION Cardiovascular Risk HDL > or equal to 60 mg/dL LOW HDL < 40 mg/dL HIGH Performed By: #### V [id number], TSH3, T3T, T4F, LIPID, FE PRO, CMP, CBC #### [facility] [address] [place] [address] [place] Cholesterol.total/Choles terol in HDL [Mass ratio] 2.8 {ratio} Normal <5.0 [facility] Comment on above: Performed By: #### V [id number], TSH3, T3T, T4F, LIPID, FE PRO, CMP, CBC #### [facility] [address] [place] [phone] [facility] LDL Cholesterol,Calculated 106 mg/dL High 0-100 [facility] Comment on above: Result Comment: LDL ATP III CLASSIFICATION LDL less than 100 mg/dL Optimal LDL 100-129 mg/dL Near or above optimal LDL 130-159 mg/dL Borderline high LDL 160-189 mg/dL High LDL greater than 189 mg/dL Very high Performed By: #### V [id number], TSH3, T3T, T4F, LIPID, FE PRO, CMP, CBC #### [facility] [address] Triglyceride w/Reflex 112 mg/dL Normal 0-149 [facility] Comment on above: Result Comment: TRIG ATP III CLASSIFICATION TRIG less than 150 mg/dL Normal TRIG 150-199 mg/dL Borderline high TRIG 200-500 mg/dL High TRIG greater than 500 mg/dL Very high Standard traceable to the Center for Disease Conrtrol and Prevention (CDC) test method. Performed By: #### V [id number], TSH3, T3T, T4F, LIPID, FE PRO, CMP, CBC #### [facility] [address] [address] VLDL CHOLESTEROL 22 mg/dL Normal [facility] Comment on above: Performed By: #### V [id number], TSH3, T3T, T4F, LIPID, FE PRO, CMP, CBC #### [facility] [address] Lymphocytes Auto (Bld) [#/Vo l]Ordered By: Marques Oliva on 05-27-2023 Lymphocytes (Bld) [#/Vol] 1.7 10*3/uL 1.00-4.8 [facility] Lymphocytes/100 WBC Auto (Bl d)Ordered By: Marques Oliva on 05-27-2023 Lymphocytes/100 WBC (Bld) 26.7 % . [facility] MCH Auto (RBC) [Entitic mass ]Ordered By: Marques Oliva on 05-27-2023 MCH (RBC) [Entitic mass] 27.7 pg 24.7-34.3 [facility] MCHC Auto (RBC) [Mass/Vol]Or dered By: Marques Oliva on 05-27-2023 MCHC (RBC) [Mass/Vol] 33.5 g/dL 32.0-35.0 [facility] MCV Auto (RBC) [Entitic vol] Ordered By: Marques Oliva on 05-27-2023 MCV (RBC) [Entitic vol] 82.6 fL 80-100 [facility] Monocytes Auto (Bld) [#/Vol] Ordered By: Marques Oliva on 05-27-2023 Monocytes (Bld) [#/Vol] 0.5 10*3/uL 0.0-0.8 [facility] Monocytes/100 WBC Auto (Bld) Ordered By: Marques Oliva on 05-27-2023 Monocytes/100 WBC (Bld) 8.0 % . [facility] Neutrophils Auto (Bld) [#/Vo l]Ordered By: Marques Oliva on 05-27-2023 Neutrophils (Bld) [#/Vol] 3.9 10*3/uL 1.8-7.7 [facility] Neutrophils/100 WBC Auto (Bl d)Ordered By: Marques Oliva on 05-27-2023 Neutrophils/100 WBC (Bld) 59.8 % . [facility] No Panel InformationOrdered By: Marques Oliva on 05-27-2023 Estimated GFR (CKD-EPI) > 60.0 mL/Min [facility] Creatinine Clearance (Chem N/A [facility] Nucleated erythrocytes [Pres ence] in Blood by Automated countOrdered By: Marques Oliva on 05-27-2023 Nucleated RBC Auto Ql (Bld) 0.1 /100{WBC} 0-0.5 [facility] Platelet mean volume Auto (B ld) [Entitic vol]Ordered By: Marques Oliva on 05-27-2023 Platelet mean volume (Bld) [Entitic vol] 7.4 fL 6.3-10.7 [facility] Platelets Auto (Bld) [#/Vol] Ordered By: Marques Oliva on 05-27-2023 Platelets (Bld) [#/Vol] 360 10*3/uL 150-450 [facility] Potassium [Moles/volume] in Serum or PlasmaOrdered By: Marques Oliva on 05-27-2023 Potassium [Moles/Vol] 4.6 mmol/L 3.5-5.1 [facility] Protein [Mass/volume] in Ser um or PlasmaOrdered By: Marques Oliva on 05-27-2023 Protein [Mass/Vol] 6.9 g/dL 6.4-8.9 [facility] RBC Auto (Bld) [#/Vol]Ordere d By: Marques Oliva on 05-27-2023 RBC (Bld) [#/Vol] 4.30 10*6/uL 3.60-5.00 [facility] Serum or plasma albumin/glob ulin mass ratioOrdered By: Marques Oliva on 05-27-2023 Albumin/Globulin [Mass ratio] 1.7 {ratio} [facility] Serum or plasma anion gap de terminationOrdered By: Marques Oliva on 05-27-2023 Anion gap [Moles/Vol] 11.4 mmol/L 6.0-15.0 [facility] Serum or plasma high density lipoprotein (HDL) cholesterol measurementOrdered By: Marques Oliva on 05-27-2023 Cholesterol in HDL [Mass/Vol] 72 mg/dL 23-92 [facility] Comment on above: HDL CHOL ATP-III CLA SSIFICATION Cardiovascular RiskHDL > or equal to 60 mg/dL LOWHDL < 40 mg/dL HIGH Serum or plasma total choles terol/high density lipoprotein (HDL) cholesterol mass ratOrdered By: Marques Oliva on 05-27-2023 Cholesterol.total/Choles terol in HDL [Mass ratio] 2.8 {ratio} <5.0 [facility] Sodium [Moles/volume] in Ser um or PlasmaOrdered By: Marques Oliva on 05-27-2023 Sodium [Moles/Vol] 139 mmol/L 136-145 [facility] Thyroid Stimulating Hormoneo n 05-27-2023 TSH Qn 2.09 m[IU]/L Normal 0.45-5.33 [facility] Comment on above: Result Comment: PERF ORMED BY: [facility] [address] [place] [address] PATHOLOGIST GENERAL MANAGER [employer] CHRIS BONILLA M.D. Performed By: #### V [id number], TSH3, T3T, T4F, LIPID, FE PRO, CMP, CBC #### [facility] [address] [place] [id number] [facility] Thyrotropin [Units/volume] i n Serum or PlasmaOrdered By: Marques Nascimentodara on 05-27-2023 TSH Qn 2.09 m[IU]/L 0.45-5.33 [facility] Thyroxine (T4) free [Mass/vo lume] in Serum or PlasmaOrdered By: Marques Pj on 05-27-2023 Free T4 [Mass/Vol] 0.80 ng/dL 0.61-1.12 [facility] Transferrin [Mass/volume] in Serum or PlasmaOrdered By: Marques Oliva on 05-27-2023 Transferrin [Mass/Vol] 333 mg/dL 203-362 [facility] Triglyceride [Mass/volume] i n Serum or PlasmaOrdered By: Marques Pj on 05-27-2023 Triglyceride [Mass/Vol] 112 mg/dL 0-149 [facility] Comment on above: TRIG ATP III CLASSIF ICATIONTRIG less than 150 mg/dL NormalTRIG 150-199 mg/dL Borderline highTRIG 200-500 mg/dL High TRIG greater than 500 mg/dL Very highStandard traceable to the Center for Disease Conrtrol and Prevention (CDC) test method. Triiodothyronine (T3) Totalo n 05-27-2023 Triiodothyronine (T3) Total 1.08 ng/mL Normal 0.87-1.78 [facility] Comment on above: Performed By: #### V [id number], TSH3, T3T, T4F, LIPID, FE PRO, CMP, CBC #### [facility] [address] [place] [id number] [facility] Triiodothyronine (T3) [Mass/ volume] in Serum or PlasmaOrdered By: Marques Oliva on 05-27-2023 T3 [Mass/Vol] 1.08 ng/mL 0.87-1.78 [facility] Urea nitrogen [Mass/volume] in Serum or PlasmaOrdered By: Marques Oliva on 05-27-2023 Urea nitrogen [Mass/Vol] 16 mg/dL 7-25 [facility] Vit. B12/Folate Profileon Cobalamin (Vitamin B12) [Mass/Vol] 219 pg/mL Normal 180-914 [facility] Comment on above: Performed By: #### V [id number], TSH3, T3T, T4F, LIPID, FE PRO, CMP, CBC #### [facility] [address] Folate 13.7 ng/mL Normal >5.9 [facility] Comment on above: Result Comment: Thu te reference range: >5.9 ng/ml The WHO technical consultation on folate and vitamin b12 deficiencies has determined that folate concentrations less than 4 ng/ml are considered deficient. Performed By: #### V [id number], TSH3, T3T, T4F, LIPID, FE PRO, CMP, CBC #### [facility] [address] Vitamin B12 ser/plasOrdered By: Marques Oliva on 05-27-2023 Cobalamin (Vitamin B12) [Mass/Vol] 219 pg/mL 180-914 [facility] WBC Auto (Bld) [#/Vol]Ordere d By: Marques Oliva on 05-27-2023 WBC (Bld) [#/Vol] 6.5 10*3/uL 3.8-11.6 [facility] US Thyroidon 04-23-2022 US Thyroid History: Right neck mass for 4 months. Technique: Sonography and Doppler imaging of the thyroid was performed. Images were obtained and stored in a permanent archive. Comparison: None. RESULT: RIGHT LOBE: 4.7 x 1.7 x 2.4 cm; heterogeneous echogenicity; expected vascular flow LEFT LOBE: 5.4 x 1.8 x 2.2 cm; heterogeneous echogenicity; expected vascular flow ISTHMUS: 0.5 cm NODULES: No discrete nodules. LYMPH NODES: No lymphadenopathy. Other: Area of lump appears to correspond to the right isthmus, per tech. IMPRESSION: Heterogeneous thyroid without discrete nodules. Please note that characterization of thyroid nodules is based on the ACR 2017 TI-RADS classification, which provides guidelines regarding management of thyroid nodules on the basis of their ultrasound appearance. These are offered in an attempt to assist the referring physician in their decision process and help address the current over diagnosis of thyroid cancer. These are considered recommendations and guidance and do not represent absolute standards of care. Report reported and signed by Garcia Nye on 04/23/2022 1517 [facility] Delivery Room Clerk Coding Summaryon 11-05-2021 Coding Summary HTMLBase 64 PxblkiunZSw4iLl+PGhlY WQ+DA1SZDAjB37fePPxlJ 1FA3cMQG8VWTMJPSGJDD1 SDE2ckXA0KBoxT0RsepYs TwqilXGrBW84AOn1SKY8m VoyBRwecS3oaKMhF0y3Qg PdRX11iM07KUwtMMIdRdP 3LjZpbjsgbWFy F6qxXsDwdBKmDgx+PHRhY mxlIHdpZHRoPScxMDAlJy PanDolJR4dIt1wERGsAHD vbGxhcHNlOiBj x0qfABQwWRblFY2dzAskV 7SxpYH4WDDkw6d2Fq85nN I+CZDoOYO5oLteHDfvl04 3HmMxi6zvYYX2 rTJuPZgzDIV4J67ff1Q6B LJcYEUiEWO4uCI2fN4buD xfmdlbI7FikEUzYaH9RHW 4wBPxyZ3gvCrj fhafpC7rFdr+L98OIL9SI NWCKA7QNfm6E5JsQnuqkO I+CZ89YODpZT54sJHyfRB bs2nsoPt8HjKb AMOpHBH2hStoXCxdp7YvE PRbK05gxCDfp5Z5MBStrG hmvOUmNmOefRZ0yP4cZPl hcnlki9egalqc Mwzki4uyhs97uW17S49aI RudMFSbEWC6TOAyZAWnoE tbzt8vzC6hYb0+OKsrz6i bd5bgzNs2FqXc TJEissLiaGerOUM4b9SqH p53Q9YtyOgcc8PrBqp8sr 85vMRfp3I6oXQ2PNuvLWD ctW2nNQzvXbB7 GNOdNmEnnT42rUGlWQwbK t8doItenQtgAL5tFITvdd vbGLWyiA3jVSEyjKBieMo eQN9sIZExwcpk b151RdJeUAP1JGQswDXkM 2JssA9oEgNuFOPcKQYcT5 TdgJYiINavJ065CDgiDeF 2WBEluhIlN2Tr CBIuoHbcLyD7b5Y5Py6Kd 4JgclwkQPJ1UNvrHOJ8Sz PpJpGaNaG9K8OcOcf8OFI dqWjfUE1jU5Ee DGAofqomrmcuxJD2SJQtG JNdgA58dOXsRSmpQy4bt5 U9i972QHXoBRMloC90Rl0 udDogMTBwdCBU cV5reorfk7rvrgufJpErG MTdCMm8VNo8GEFsvOtrOw HzCIV4DfK7GNL4qOPsoB5 xtUyatsmytD4v Oyc+B56yxI9sALI9FWB0z jewLADulvXvSV63GD42N2 RyPjwvdGFibGU+PGRpdiB ejZfrUY7mJdQl a0ova8XiHRaoG0JxMOUwP KivQph6UWWfPSK2iXJ6dM 2vRDQeVTghd1N3rMA2C7P wpzSoul5fd7vv LADlPQyfF84ovWMuv6V8L UFxrWB6LIJeuXajHuJghT 93Oyc+LPCbxJwkd1TtSlz qr5bjz1phvRm0 EaLdQJUbrbPvgEaiTIJ1a 5LfGx55H88yHHcqBFDhRG UvBAZzRMOgdJgeht7yqQ0 wIi8+PGNvbCB3 fQQ5hN5uDIJrIaZ0KUusK 419QcWzhQGuGpqzx2gkf9 bdcLw5SjXlTCGtsmVynLh yYWE8y5WjEn85 V49kFDxlMHGuLLGmQEAdB QEurFxieg8eoY6dRu7+PC 7hw4kgox19zG40vZS+PHR wJDL7iOfkWKhf JTBewC4dHYkaHkZ0DNWkB yRpzC41xLPnIXivIk9apN orwGgoVZ0yOXNixocee54 9MxFag7igCEFr gIHuMTgdDSP2B60vi3G7U MBlKXYwRWN1dXR2bB0tyD lnbjogbGVmdDsgdmVydGl mYPmfWXhyC233 IHRvcDsnPlBhdGllbnQgT uQvUUu0I2CgMut0TVXyoA lxRN9luDDiGAsnQi6xdEu wwLwkRT9wCBKu rwukm204YaLty2ssLJGnu HWjPKhtUAT7C83kz8G4RD PsSBTwUPM6aVL4sJ0mgOo nbjogbGVmdDsg pmCzhLwpNAdtDRepO593D HRvcDsnPkJpcnRoIERhdG T1IN98PH82nMTaw7Y8xIH 3E9TlYFLqpctx imualSD4HCEmXIRmnZ05H w9nxMbxOb2dKNNePVH1CZ YrzHEbP0ComB5mZkBnRIC nAROgF0KeqEMc NZuqJ646NAsqWsD1FPAqb gHmR0UpOQNacQevOrO7j4 Y3Ew7KJ9C4EB15KD36aFH ef6K9jDW0K6Fd FRUsuxvskzploDN0QOUfR LZduY16Fw6tiOjfQw4dJP DhMUO5CQHaxCGuB1TdyE3 yOiAjMDAwMDAw I1GquTGaEWykI565UHbuY vA4AVBgjnVrV2UmCRQbpM hiRxT7t0H8Xa1WDOk2ZI7 6LQ19rOMcu3M6 sNU3M1SnVUMkwuagclivp OP7FSWtLWHssT34Gi3lvJ jxMx3mBLEnFZX7QVFhwWZ yH3ZhhJ5kWuEq TNNuDCXrW0XpgPTpTAqjW 442IKfsQyS4NZYmpdVvZ2 WuBGWxfErfXiZ7u5K2Fo6 RWFVvSE31OWE1 mPP9CN22CA36C6PeJlkav GFibGU+PHRhYmxlIHdpZH RoPScxMDAlJyBzdHlsZT0 pIf4iIZRbTWJd zDxmoEPsDhEnp6ycSWPeX MbkBW0btMuxU6BrzNJ3HU Hwc5d5Ro27Z00kK2DfbLX +CBUjfDG1pDH5 tZ9mKgQbVkV3DKoaF372X hYeeVQyQfzba9ugg8adgH d8FyK0JIOfjjXyzYgyACQ 3n1IgLg30O72q IHdpZHRoPSIxNSUiIHZhb Vhvhz7usE3eOz4+PGNvbC W7yVB4bM6tKmGnUaN2MLw pU826QyEwwSNn Dsmli4dva4whcDw8EoExU DHdqiQdjPqwYTW7s5DvCi 13J6DvhGmsf3MvFdt7nq1 9vNVen4S8cXK0 M8BnGMHsnbbwqHJagLvfL R9vMFEczqxoCXVnzR4wHJ EhK0w1GnYkEgL7YPxzL5J jbcN4PBIsfOVj ZYqmHXV2F82lv6Z6MLXwF ZDnYSW4fOK0gQ1whJejos ogbGVmdDsgdmVydGljYWw rZWjfD961GKGb tFaaTITvuL7lAKSbyBQba BkvBJ6yZVTahkjtYuTARO 0XNM1mLNTZZLtLVDALMEV NQVJJRTwvdGQ+ ONOkHWV5vIgwLSgcHZUuz L4bRGNyC2z6TaRaLfR2YS szO9NlMHHdwduwJy37nP8 eHpBjNwT1RZle H8NglbB7SOFybZMbHYqxJ CA1E43kw7S3GEEbATPaHD T6zCD9sY2ilCdyfbkeuPX mdDsgdmVydGlj VSbdAYyoP066AHLsgUysZ oZdRoM7ChJ8TyP5R9GnOx d7GAKitZdsVE6ehDBuTSk nPx3vtDcklYzw VH2fHVNgahyqHIJdiV4bW XUbqNYvoXxfCK8dHIEwhx gvm406KaWdHRU3QOUqzXD aP9WdxQ6iUuUv HFLkMBZvW8CpoGVwTElbA 868ACdbHoG9ATOlbvDtC3 SuNVZvzKloPoP7h5L3Qa1 1MSBZZWFyczwv dGQ+FSXrBGK3dAvuFCeiV IOroS6dHCKvL2i3DgNoCd N4MNylF5QoJOGjwfowZt9 0jE3nInUcUmJ9 OBptU7GmllU7HYGbmCTdB AreENZ1M26tc1Q8WNViSM KiYIJ9vUZ5xO2paQsumez gbGVmdDsgdmVy nOcaUWmjTGgeR547CVMvd DsnPkZFTUFMRTwvdGQ+PH VkWVP4aPtmJOnxBIRawY9 fMLGbQ2m4ZkMp VtT6BYhiG9JwVJQxgklyL f73nH9vGbVoAhS8YJhtB4 RteiF2YTLarAQuLGznAGB 8Z91gh3M8BKNz AJIqFRV1eLV9mK5fsUhbk jogbGVmdDsgdmVydGljYW npNAsqX129YDBkvQvpNy0 NMQ92OD69T1Tg PjwvdGFibGU+PHRhYmxlI HdpZHRoPScxMDAlJyBzdH piEC4eCd0eIYGoYGPeiRq txCUxMwVvg1tn PVVlHKwlKL1pxGrnC2Saq XU8QMVtl5u5Xi24I03jM3 JvdXA+NLBwiGF5uIS3zN9 aDxQxLkD8YVdo L171YtSueOYmYemaq2xcb 2npnXp3IdDoPFVxhyHmqD ugDIF0f5XhAr17T52nGUs pZHRoPSIyMCUi HDOttGavrk7fzB6nIo3+P TCyrZM6fPU1lZ2gNeWsOh T2PKxvB035SpMeyKGdKnd aD09wP7HnxWK+ MAZyIkb5HXQitTzgHB4hq GSuHFlyXb1nFQW8MoYnFq SfMNwjT4SrFJQeuwzkfbx odJR4SMJtJDHv zM07Pl2obFexYg4pXRRxO YJ2XVBgeIQiL6SttU0tYa WmPBAtTYZqM1FxuKFcKTu jB168JVmfWmI1 QWAnlwFdW2YbYFKtbBbsW mX9d6J3Xv4TvErnzYGkZV 3fMsYdOPj4R3LnDyq0IPX hpWgoFL0zyHDr MJbxKl2qlUnmeGyfYV6sI GDmqeurm978DhHis0xsKY NcxBIsXSgsKYC6C46wg8X 0AKLyHLViMPP7 dWB0yL7bwAsvizxjkOLoc DsgdmVydGljYWwtYWxpZ2 65BYFibTdnJdKRSyr2N0B fWha6XDUrjXgi AU4nbCIyYCpwOh1drApfe AvzEV5dCYMmtckgq487Za Set8lwRKOquUIaQLafEWY 8L54ne7M5JMYq LSNlQVP0bPA8cP9ghAdir jogbGVmdDsgdmVydGljYW laFIwiB946VJYqxCuhMk4 TSik3L8AxAvr3 WNTfbRjnXT8quRJgBQwuW a4qiLhjjVbyQP9cQLSjad qhq257KeTwv7vkWEDjkZE iBEcwDBO9L70s j7R0BYQbDJGzGNW0hFR4l N4ehPoiduaztEWqwYgtpv UabLyeUZeuYJwnC513ZQX vcDsnPlBheWVy OjwvdGQ+SM34rj81E2GkW xzzFbf2ZXKsAGK9jYS7aS 2eCIHxGDbzq3Z9fUR7M8T jrwYvko2bl2nl YXB (more content not included)... Normal [facility] ED Clinical Summaryon 2021 ED Clinical Summary [facility] ? Urgent Care [address] [place] [address] Clinical Summary PERSON INFORMATION Name: JESSIE DOWLING Age: 51 Years Sex: FEMALE : 1970 MRN: Acct#: Visit Reason: UC - Ankle/Foot/Toe Pain or Swelling; LEFT ANKLE PAIN/INJURY Arrival: 10/31/2021 10:43:27 Discharge: 10/31/2021 13:15:00 LOS: 000 02:32 Check In: 10/31/2021 10:43:27 Checkout: 10/31/2021 13:15:00 Address: [address] [place] [id number] PCP: IRINA OLIVA PROVIDER INFORMATION Provider Role Assigned Unassigned Je RUIZ, Pete ED PA 10/31/2021 10:46:19 Albaro RN, Erika ED Nurse 10/31/2021 10:51:28 VITALS INFORMATION Vital Sign Triage Latest Temperature Tympanic Temperature Temporal Artery Pulse Rate O2 Sat 99 % 99 % Respiratory Rate Blood Pressure /84 mmHg /84 mmHg MEDICAL INFORMATION Medications Given: Allergy Information: penicillins; sulfamethoxazole; clindamycin; Latex; Contrast Dye PHYSICIAN DOCUMENTATION DISCHARGE INFORMATION: Discharge Disposition: Home Discharge Location: Home PATIENT EDUCATION INFORMATION Instructions: Hypertension, Adult, Ejcy-ej-Durw; Ankle Sprain, Vpon-zw-Vsao Follow-Up: With: Address: When: IRINA Kruse [address] [place] [address] Business (1) Comments: Radiologist interpretation negative for fracture If the pain continues or fails to resolve Follow-up with Dr. Trivedi field support specialist Dr. Trivedi's office is located at [address] [place] [address] Wear the Alfa wrap while active, remove when sleeping, napping or showering Loosen or remove the alfa wrap with any numbness or tingling, or blue discoloration Continue on the acronym R.I.C.E. Rest, Ice Compression, Elevation this will help with pain Can ice for 15-20 minutes every 3 hours Can take 600mg of motrin/ibuprofen every 6-8 hours DIAGNOSIS: Elevated blood pressure reading; Left ankle pain; Left ankle sprain Patient Understands: Yes - Patient/family/caregi brianna verbalizes understanding of instructions given Comment: Normal [facility] ED Patient Summaryon 022 ED Patient Summary [facility] ? Urgent Care [address] [place] [address] [id number] PATIENT DISCHARGE INSTRUCTIONS Patient Information Name: JESSIE DOWLING Age: 51 Years Date of : 1970 Reason For Visit: UC - Ankle/Foot/Toe Pain or Swelling; LEFT ANKLE PAIN/INJURY Arrival Time: 10/31/2021 10:43:27 Primary Care Physician: IRINA OLIVA Attending Physician: Pete Bishop Comment: Patient Education With: Address: When: IRINA OLIVA [address] [place] [address] [address] [place] [id number] [facility] (1) Comments: Radiologist interpretation negative for fracture If the pain continues or fails to resolve Follow-up with Dr. Trivedi field support specialist Dr. Trivedi's office is located at [address] [place] [address] Wear the Alfa wrap while active, remove when sleeping, napping or showering Loosen or remove the alfa wrap with any numbness or tingling, or blue discoloration Continue on the acronym R.I.C.E. Rest, Ice Compression, Elevation this will help with pain Can ice for 15-20 minutes every 3 hours Can take 600mg of motrin/ibuprofen every 6-8 hours Hypertension, Adult Hypertension is another name for high blood pressure. High blood pressure forces your heart to work harder to pump blood. This can cause problems over time. There are two numbers in a blood pressure reading. There is a top number (systolic) over a bottom number (diastolic). It is best to have a blood pressure that is below 120/80. Healthy choices can help lower your blood pressure, or you may need medicine to help lower it. What are the causes? The cause of this condition is not known. Some conditions may be related to high blood pressure. What increases the risk? ? Smoking. ? Having type 2 diabetes mellitus, high cholesterol, or both. ? Not getting enough exercise or physical activity. ? Being overweight. ? Having too much fat, sugar, calories, or salt (sodium) in your diet. ? Drinking too much alcohol. ? Having long-term (chronic) kidney disease. ? Having a family history of high blood pressure. ? Age. Risk increases with age. ? Race. You may be at higher risk if you are . ? Gender. Men are at higher risk than women before age 45. After age 65, women are at higher risk than men. ? Having obstructive sleep apnea. ? Stress. What are the signs or symptoms? ? High blood pressure may not cause symptoms. Very high blood pressure (hypertensive crisis) may cause: ? Headache. ? Feelings of worry or nervousness (anxiety). ? Shortness of breath. ? Nosebleed. ? A feeling of being sick to your stomach (nausea). ? Throwing up (vomiting). ? Changes in how you see. ? Very bad chest pain. ? Seizures. How is this treated? ? This condition is treated by making healthy lifestyle changes, such as: ? Eating healthy foods. ? Exercising more. ? Drinking less alcohol. ? Your health care provider may prescribe medicine if lifestyle changes are not enough to get your blood pressure under control, and if: ? Your top number is above 130. ? Your bottom number is above 80. ? Your personal target blood pressure may vary. Follow these instructions at home: Eating and drinking ? If told, follow the DASH eating plan. To follow this plan: ? Fill one half of your plate at each meal with fruits and vegetables. ? Fill one fourth of your plate at each meal with whole grains. Whole grains include whole-wheat pasta, brown rice, and whole-grain bread. ? Eat or drink low-fat dairy products, such as skim milk or low-fat yogurt. ? Fill one fourth of your plate at each meal with low-fat (lean) proteins. Low-fat proteins include fish, chicken without skin, eggs, beans, and tofu. ? Avoid fatty meat, cured and processed meat, or chicken with skin. ? Avoid pre-made or processed food. ? Eat less than 1,500 mg of salt each day. ? Do not drink alcohol if: ? Your doctor tells you not to drink. ? You are , may be , or are planning to become . ? If you drink alcohol: ? Limit how much you use to: ? 0?1 drink a day for women. ? 0?2 drinks a day for men. ? Be aware of how much alcohol is in your drink. In the [place] one drink equals one 12 oz bottle of beer (355 mL), one 5 oz glass of wine (148 mL), or one 1? oz glass of hard liquor (44 mL). Lifestyle ? Work with your doctor to stay at a healthy weight or to lose weight. Ask your doctor what the best weight is for you. ? Get at least 30 minutes of exercise most days of the week. This may include walking, swimming, or biking. ? Get at least 30 minutes of exercise that strengthens your muscles (resistance exercise) at least 3 days a week. This may include lifting weights or doing Pilates. ? Do not use any products that contain nicotine or tobacco, such as cigarettes, e-cigaret (more content not included)... Normal [facility] Test Urine 1on U Preg Negative Normal [facility] Comment on above: Performed By: #### [id number] #### [facility] (DEFAULT) [address] [place] [id number] U Preg Internal Control Pass [facility] Comment on above: Performed By: #### [id number] #### [facility] (DEFAULT) [address] [place] [id number] Urgent Care Note- Provideron 10-31-2021 Urgent Care Note- Provider Patient: JESSIE DOWLING Age: 51 years Sex: FEMALE : 1970 Associated Diagnoses: Left ankle pain; Left ankle sprain; Elevated blood pressure reading Author: Pete Bishop Basic Information Time seen: Date & time 10/31/2021 10:39:00. History source: Patient. History limitation: None. History of Present Illness Patient is a 51-year-old female complaint of left ankle pain. Patient states her right foot was asleep felt her left foot go backwards and fell forward. States happened early this morning around 1 or 2 AM. Did not strike her head or injure her neck. No other complaints or concerns. Patient with multiple drug allergies, allergy list reviewed in full detail. Review of Systems Constitutional symptoms: Negative except as documented in HPI. Musculoskeletal symptoms: Negative except as documented in HPI. Additional review of systems information: All other systems reviewed and otherwise negative. Health Status Allergies: Allergic Reactions (Selected) Severity Not Documented Clindamycin- Rash. Contrast Dye- No reactions were documented. Latex- No reactions were documented. Penicillins- No reactions were documented. Sulfamethoxazole- No reactions were documented.. Medications: (Selected) Documented Medications Documented Wixela Inhub 250 mcg-50 mcg inhalation powder: 1 inh, INH, BID, 0 Refill(s) atorvastatin 10 mg oral tablet: 10 mg = 1 tab(s), PO, Daily, 0 Refill(s) cyclobenzaprine 10 mg oral tablet: 10 mg = 1 tab(s), PO, TID, PRN: for spasm, 30 tab(s), 0 Refill(s) ferrous sulfate 325 mg (65 mg elemental iron) oral delayed release tablet: 325 mg = 1 tab(s), PO, Daily, 0 Refill(s). Past Medical/ Family/ Social History Medical history: No active or resolved past medical history items have been selected or recorded.. Surgical history: No active procedure history items have been selected or recorded.. Family history: No family history items have been selected or recorded.. Social history: Social & Psychosocial Habits Alcohol 02/13/2020 Alcohol Use: Current Type: Wine Frequency: 1-2 times per month Substance Abuse 02/13/2020 Substance use: Never Tobacco 02/13/2020 Smoking tobacco use: Never (less than 100 in l Electronic Cigarette/Vaping 02/13/2020 Electronic Cigarette Use: Never . Problem list: Active Problems (1) Anemia . Physical Examination Vital Signs Vital Signs 10/31/2021 10:54 EDT Temperature Oral 37.1 DegC Apical Heart Rate 81 bpm Respiratory Rate 18 br/min Systolic Blood Pressure 123 mmHg Diastolic Blood Pressure 84 mmHg SpO2 99 % Oxygen Therapy Room air . General: Alert, no acute distress. Skin: Warm, dry. Head: Normocephalic, atraumatic. Eye: Normal conjunctiva. Cardiovascular: Regular rate and rhythm. Respiratory: Lungs are clear to auscultation, respirations are non-labored, breath sounds are equal, Symmetrical chest wall expansion. Back: Normal range of motion. Musculoskeletal: Normal ROM, normal strength, no deformity, Mild edema in the area of the lateral malleolus, tenderness to palpation throughout the ankle tib-fib and foot are nontender, MSPS intact, capillary refill less than 2 seconds, full flexion and full extension intact to the toes of the foot. Psychiatric: Cooperative, appropriate mood & affect. Medical Decision Making Differential Diagnosis: Ankle sprain, ankle fracture. Radiology results: X-ray (ST) X-Ray: ? XR Ankle Complete Left ? 10/31/21 12:37:25 EXAM: XR Ankle Complete Left HISTORY: left ankle pain impact injury COMPARISON: None TECHNIQUE: 3 views of the left ankle were obtained with 4 images obtained in total. FINDINGS: Ankle mortise is grossly intact. No definite acute fracture or dislocation is seen. Mild spurring of the medial malleolus of the distal tibia. Tiny spur at the tip of the distal fibula. Small plantar and posterior calcaneal spurs. Mild generalized soft tissue swelling. IMPRESSION: Left ankle study fails to demonstrate definite acute fracture or dislocation. Degenerative changes as noted. Follow-up as needed. ? Signed By: William Christianson MD Radiologist interpretation negative for fracture. Patient was provided with a Alfa wrap and crutches. Work note provided for today. Patient declined Motrin or Tylenol in the urgent care. Home care instructions provided, pt stated understanding of home care instructions. Follow-up with primary care provider in 3-5 days sooner if worse. Impression and Plan Diagnosis Left ankle pain (BQJ36-WA M25.572, Discharge, Medical) Elevated blood pressure reading (YVR70-PC R03.0, Discharge, Medical) Left ankle sprain (SQX27-DQ S93.402A, Discharge, Medical) Plan Patient was given the following educational materials: Ankle Sprain, Ikbp-fx-Cggz, Ankle Sprain, Gotg-us-Iozf, Hypertension, Adult, Vymx-su-Ftdv. Follow up with: IRINA OLIVA Radiologist interpretation negative for fracture (more content not included)... Normal [facility] [place] 022 Urgent Care Record [facility] ? Urgent Care [address] [place] [address] [id number] PATIENT DISCHARGE INSTRUCTIONS Patient Information Name: JESSIE DOWLING Age: 51 Years Date of : 1970 Reason For Visit: UC - Ankle/Foot/Toe Pain or Swelling; LEFT ANKLE PAIN/INJURY Arrival Time: 10/31/2021 10:43:27 Primary Care Physician: IRINA OLIVA Attending Physician: Pete Bishop Comment: Visit Diagnosis: Diagnoses This Visit Elevated blood pressure reading (R03.0) Left ankle pain (M25.572) Left ankle sprain (S93.402A) UC - Ankle/Foot/Toe Pain or Swelling ([id number]) If you received any narcotics, sedation, or any other medication that causes drowsiness for the next 24 hours, unless otherwise directed: ? Do not drive a car. ? Do not operate machinery such as power tools, lawn mowers, drills, sewing machines, or stoves ? Avoid alcoholic beverages and drugs for allergies, nerves, or sleep ? Do not make important personal or business decisions or sign any legal documents With: Address: When: IRINA OLIVA [address] [place] [address] [address] [place] [address] Business (1) Comments: Radiologist interpretation negative for fracture If the pain continues or fails to resolve Follow-up with Dr. Trivedi field support specialist Dr. Trivedi's office is located at [address] [place] [address] [phone] Wear the Alfa wrap while active, remove when sleeping, napping or showering Loosen or remove the alfa wrap with any numbness or tingling, or blue discoloration Continue on the acronym R.I.C.E. Rest, Ice Compression, Elevation this will help with pain Can ice for 15-20 minutes every 3 hours Can take 600mg of motrin/ibuprofen every 6-8 hours Medication Information: The exam and treatment you received today in the [facility] were for an urgent problem and are not intended as complete care. It is important for you to follow up with a doctor, nurse practitioner, or physician?s web press operator assistant for ongoing care. If your symptoms become worse or you do not improve as expected and you are unable to reach your usual health care provider, you should return to the Emergency Department, we are available 24 hours a day. For those patients who have received Radiology results, the interpretation of your X-ray as given to you by our Urgent Care physician is only a preliminary report. The Radiologist will review your films and if there is a change in the diagnosis you will be notified by phone. Please make sure you have provided a working phone number so we can reach you if necessary. In the event that you had a lab culture while you were a patient in the Urgent Care, you will be notified by phone if there is a need to change your antibiotic. Please make sure you have provided a working phone number so we can reach you if necessary. [facility] [place] [facility] has provided you with a complete list of medications post discharge. Please inform your product trainer/provider of your visit and for further instruction on these medications. Any specific questions regarding your chronic medications and dosages should be discussed with your primary care physician(s) and/or pharmacist. Additional medications on your home medication list not specifically addressed. Please contact the ordering physician if you have questions about these medications. albuterol (Albuterol (Eqv-Proventil HFA) 90 mcg/inh inhalation aerosol) 2 puff(s) Inhalation every 4 hours as needed as needed for wheezing. atorvastatin (atorvastatin 10 mg oral tablet) 1 tab(s) Oral every day. Visit Information Allergies: Substance Reaction Symptoms Type Comments clindamycin Rash Drug Contrast Dye Drug Latex Drug penicillins Drug sulfamethoxazole Drug Vital Signs: Vitals and Measurements this Visit (last charted value for your 10/31/2021 visit) Vital Signs This Visit Temperature Oral: 37.1 DegC Apical Heart Rate: 81 bpm Respiratory Rate: 18 br/min Systolic Blood Pressure: 123 mmHg Diastolic Blood Pressure: 84 mmHg SpO2: 99 % Oxygen Therapy: Room air Measurements This Visit Height: 167.64 cm Weight: 97.52 kg Body Mass Index: 34.7 kg/m2 Problems List: Problem Onset Comments Anemia Asthma Hypercholesteremia Patient Education Ankle Sprain An ankle sprain is a stretch or tear in one of the tough tissues (ligaments) that connect the bones in your ankle. An ankle sprain can happen when the ankle rolls outward (inversion sprain) or inward (eversion sprain). What are the causes? This condition is caused by rolling or twisting the ankle. What increases the risk? You are more likely to develop this condition if you play sports. What are the signs or symptoms? Symptoms of this condition include: ? Pain in your ankle. ? Swelling. ? Bruising. This may happen right after you sprain your ankle o (more content not included)... [facility] XR Ankle Complete Lefton XR Ankle Complete Left EXAM: XR Ankle Complete Left HISTORY: left ankle pain impact injury COMPARISON: None TECHNIQUE: 3 views of the left ankle were obtained with 4 images obtained in total. FINDINGS: Ankle mortise is grossly intact. No definite acute fracture or dislocation is seen. Mild spurring of the medial malleolus of the distal tibia. Tiny spur at the tip of the distal fibula. Small plantar and posterior calcaneal spurs. Mild generalized soft tissue swelling. IMPRESSION: Left ankle study fails to demonstrate definite acute fracture or dislocation. Degenerative changes as noted. Follow-up as needed. Final Dictated by: William Christianson MD Dictated DT/TM: 10/31/21 12:33 Signed (Electronic Signature): William Christianson MD 10/31/21 12:37 p Technologist: JOSE [facility] Vital Signs Date Time Vital Sign Value Performing Clinician Shamai aniket 05-27-2023 08:45-0500 Body height 167.64 cm Lisandro Montes Other [facility] Other 05-27-2023 08:45-0500 Body mass index (BMI) [Ratio] 32.76 kg/m2 Lisandro Montes Other [facility] Other 05-27-2023 08:45-0500 Body temperature 96.5 [degF] Dreer Jyoti Other [facility] Other 05-27-2023 08:45-0500 Body weight 92.08 kg Christleydier Jyoti Other [facility] Other 05-27-2023 08:45-0500 Diastolic blood pressure 75 mm[Hg] Dreer Jyoti Other [facility] Other 05-27-2023 08:45-0500 Respiratory rate 20 /min Christleydier Jyoti Other [facility] Other 05-27-2023 08:45-0500 SaO2% (BldA) [Mass fraction] 100 % Christleydier Jyoti Other [facility] Other 05-27-2023 08:45-0500 Systolic blood pressure 115 mm[Hg] Dreer Jyoti Other [facility] Other 03-07-2022 10:30-0400 Body height 167.64 cm Dreer Jyoti Other [facility] Other 03-07-2022 10:30-0400 Body mass index (BMI) [Ratio] 32.92 kg/m2 Christleydier Jyoti Other [facility] Other 03-07-2022 10:30-0400 Body temperature 97.5 [degF] Dreer Jyoti Other [facility] Other 03-07-2022 10:30-0400 Body weight 92.53 kg Lisandro Jyoti Other [facility] Other 03-07-2022 10:30-0400 Diastolic blood pressure 85 mm[Hg] Dreer Jyoti Other [facility] Other 03-07-2022 10:30-0400 Respiratory rate 20 /min Dreer Jyoti Other [facility] Other 03-07-2022 10:30-0400 SaO2% (BldA) [Mass fraction] 97 % Dreer Jyoti Other [facility] Other 03-07-2022 10:30-0400 Systolic blood pressure 133 mm[Hg] Dreer Jyoti Other [facility] Other 03-08-2021 10:30-0400 Body height 167.64 cm Dreer Jyoti Other [facility] Other 03-08-2021 10:30-0400 Body mass index (BMI) [Ratio] 36.8 kg/m2 Dreer Jyoti Other [facility] Other 03-08-2021 10:30-0400 Body temperature 96.9 [degF] Dreer Jyoti Other [facility] Other 03-08-2021 10:30-0400 Body weight 103.42 kg Dreer Jyoti Other [facility] Other 03-08-2021 10:30-0400 Diastolic blood pressure 84 mm[Hg] Dreer Jyoti Other [facility] Other 03-08-2021 10:30-0400 Respiratory rate 20 /min Christleydier Jyoti Other [facility] Other 03-08-2021 10:30-0400 SaO2% (BldA) [Mass fraction] 100 % Christopher Jyoti Other [facility] Other 03-08-2021 10:30-0400 Systolic blood pressure 160 mm[Hg] Christleydier Jyoti Other [facility] Other Encounters Encounter Date Encounter Type Care Provider Facility Start: 05-30-2023 End: 05-30-2023 ambulatory Milka Oliva Facility:[facility] Start: 05-27-2023 Office outpatient visit 15 minutes Christleydier Jyoti [facility] Start: 05-27-2023 End: 05-27-2023 ambulatory Milka Oliva Facility:[facility] Start: 05-27-2023 End: 05-27-2023 ambulatory DO Milka Oliva Work Phone: [employer] Other Start: 05-27-2023 End: 05-27-2023 Patient encounter procedure DO Milka Oliva Work Phone: [facility] [place] Work Phone: Start: 03-07-2022 End: 03-07-2022 ambulatory Christopher Jyoti Other [facility] Other Start: 03-07-2022 Office outpatient visit 15 minutes Christopher Jyoti [facility] Start: 09-11-2021 End: 09-11-2021 ambulatory Christopher Jyoti Other [facility] Other Start: 09-11-2021 Telephone encounter Lisandro Ma christine [facility] Start: 03-08-2021 Office outpatient visit 15 minutes Lisandro Montes [facility] Payers Date Payer Category Payer Policy ID Medicaid [employer] [id number] Self-pay Self Pay [id number] Unknown [id number] 2. [id number] Social History Date Type Detail Facility Sex Assigned At [facility] Other Start: 1970 Sex Assigned At Female [facility] Evaluation note 05-27-2023 Note Date & Type Note Facility 05-27-2023 Evaluation note Encounter Date Diagnosis Assessment Notes May, Asthma, mild persistent (ICD-10 - J45.30) May, Pulmonary nodules (ICD-10 - R91.8) [facility] Other Evaluation note 03-07-2022 Note Date & Type Note Facility 03-07-2022 Evaluation note Encounter Date Diagnosis Assessment Notes Feb, Asthma, mild persistent (ICD-10 - J45.30) Feb, Pulmonary nodules (ICD-10 - R91.8) [facility] [employer] Other Clinical Note 10-31-2021 Note Date & Type Note Facility 10-31-2021 Note Patient Education Ma terials Follows: Hypertension, Adult Hypertension is another name for high blood pressure. High blood pressure forces your heart to work harder to pump blood. This can cause problems over time. There are two numbers in a blood pressure reading. There is a top number (systolic) over a bottom number (diastolic). It is best to have a blood pressure that is below 120/80. Healthy choices can help lower your blood pressure, or you may need medicine to help lower it. What are the causes? The cause of this condition is not known. Some conditions may be related to high blood pressure. What increases the risk? ? Smoking. ? Having type 2 diabetes mellitus, high cholesterol, or both. ? Not getting enough exercise or physical activity. ? Being overweight. ? Having too much fat, sugar, calories, or salt (sodium) in your diet. ? Drinking too much alcohol. ? Having long-term (chronic) kidney disease. ? Having a family history of high blood pressure. ? Age. Risk increases with age. ? Race. You may be at higher risk if you are . ? Gender. Men are at higher risk than women before age 45. After age 65, women are at higher risk than men. ? Having obstructive sleep apnea. ? Stress. What are the signs or symptoms? ? High blood pressure may not cause symptoms. Very high blood pressure (hypertensive crisis) may cause: ? Headache. ? Feelings of worry or nervousness (anxiety). ? Shortness of breath. ? Nosebleed. ? A feeling of being sick to your stomach (nausea). ? Throwing up (vomiting). ? Changes in how you see. ? Very bad chest pain. ? Seizures. How is this treated? ? This condition is treated by making healthy lifestyle changes, such as: ? Eating healthy foods. ? Exercising more. ? Drinking less alcohol. ? Your health care provider may prescribe medicine if lifestyle changes are not enough to get your blood pressure under control, and if: ? Your top number is above 130. ? Your bottom number is above 80. ? Your personal target blood pressure may vary. Follow these instructions at home: Eating and drinking ? If told, follow the DASH eating plan. To follow this plan: ? Fill one half of your plate at each meal with fruits and vegetables. ? Fill one fourth of your plate at each meal with whole grains. Whole grains include whole-wheat pasta, brown rice, and whole-grain bread. ? Eat or drink low-fat dairy products, such as skim milk or low-fat yogurt. ? Fill one fourth of your plate at each meal with low-fat (lean) proteins. Low-fat proteins include fish, chicken without skin, eggs, beans, and tofu. ? Avoid fatty meat, cured and processed meat, or chicken with skin. ? Avoid pre-made or processed food. ? Eat less than 1,500 mg of salt each day. ? Do not drink alcohol if: ? Your doctor tells you not to drink. ? You are , may be , or are planning to become . ? If you drink alcohol: ? Limit how much you use to: ? 0?1 drink a day for women. ? 0?2 drinks a day for men. ? Be aware of how much alcohol is in your drink. In the [place] one drink equals one 12 oz bottle of beer (355 mL), one 5 oz glass of wine (148 mL), or one 1? oz glass of hard liquor (44 mL). Lifestyle ? Work with your doctor to stay at a healthy weight or to lose weight. Ask your doctor what the best weight is for you. ? Get at least 30 minutes of exercise most days of the week. This may include walking, swimming, or biking. ? Get at least 30 minutes of exercise that strengthens your muscles (resistance exercise) at least 3 days a week. This may include lifting weights or doing Pilates. ? Do not use any products that contain nicotine or tobacco, such as cigarettes, e-cigarettes, and chewing tobacco. If you need help quitting, ask your doctor. ? Check your blood pressure at home as told by your doctor. ? Keep all follow-up visits as told by your doctor. This is important. Medicines ? Take lrva-flr-fktklns and prescription medicines only as told by your doctor. Follow directions carefully. ? Do not skip doses of blood pressure medicine. The medicine does not work as well if you skip doses. Skipping doses also puts you at risk for problems. ? Ask your doctor about side effects or reactions to medicines that you should watch for. Contact a doctor if you: ? Think you are having a reaction to the medicine you are taking. ? Have headaches that keep coming back (recurring). ? Feel dizzy. ? Have swelling in your ankles. ? Have trouble with your vision. Get help right away if you: ? Get a very bad headache. ? Start to feel mixed up (confused). ? Feel weak or numb. ? Feel faint. ? Have very bad pain in your: ? Chest. ? Belly (abdomen). ? Throw up more than once. ? Have trouble breathing. Summary ? Hypertension is another name for high blood pressure. ? High blood pressure forces your h (more content not included)... [facility] Evaluation note 03-08-2021 Note Date & Type Note Facility 03-08-2021 Evaluation note Encounter Date Diagnosis Assessment Notes Feb, Asthma, mild persistent (ICD-10 - J45.30) Feb, Pulmonary nodules (ICD-10 - R91.8) [facility] Other Evaluation note Note Date & Type Note Facility Evaluation note No Information [employer] Other Evaluation note Note Date & Type Note Facility Evaluation note No assessment information availa [facility] Work Phone: History general Narrative - Reported Note Date & Type Note Facility History general Narrative - Reported Type Medical History stress induced asthma Medical History hx of bronchitis Medical History lung chest nodule Surgical History perineal repair post vaginal child 2011 Surgical History tonsillectomy and adenoidectomy 1990 Surgical History wisdom teeth 1991 Surgical History Colonoscopy 2018 Hospitalization History see surgical hx Hospitalization History back injury [facility] 01/2020 Hospitalization History [facility] bronchitis [facility] Other History general Narrative - Reported Note Date & Type Note Facility History general Narrative - Reported Type Medical History stress induced asthma Medical History hx of bronchitis Medical History lung chest nodule Surgical History perineal repair post vaginal child 2011 Surgical History tonsillectomy and adenoidectomy 1990 Surgical History wisdom teeth 1991 Surgical History Colonoscopy 2018 Surgical History Vein ablation rt leg [facility] Hospitalization History see surgical hx Hospitalization History back injury [facility] 01/2020 Hospitalization History [facility] bronchitis [facility] Other Summary Purpose Family History No Family History Records FoundNo Family History Records FoundNo Family History Records Found Advance Directives No Advanced Directives Records Found Advance Directive Response Recorded Date/ Time Advance Directives No March 17, 2017 8:21am Chief Complaint and Reason for Visit Chief Complaint j45.40 e03.9 e78.5 d 64.9 r22.1 Additional Source Comments INFORMATION SOURCE (unrecogn ized section and content) DATE CREATED AUTHOR 11/06/2021 [facility] DATE CREATED AUTHOR AUTHOR'S ORGANIZ ATION 04/24/2022 [facility] dical Specialist DATE CREATED AUTHOR AUTHOR'S ORGANIZ ATION 06/01/2023 [facility] REASON FOR VISIT (unrecogniz ed section and content) Asthma and Pulmonary NoduleR efill- Albuterol Inhaler1 yr f/u Asthma, Pulm Nodules1 yr f/u Asthma, Pulm Nodules Care Teams (unrecognized sec tion and content) Team Status: Active Member Role Status Dates Milka Oliva DO Primary Care Provider Active Team Status: Inactive Member Role Status Dates Milka Oliva DO Primary Care Provider, Attending Provider Active Goals (unrecognized section and content) Goals may be documented in a n alternate section FOR RECORDS PERTAINING TO PATIENTS WHO ARE OR HAVE BEEN ENROLLED IN A CHEMICAL DEPENDENCY/SUBSTANCEABUSE PROGRAM, SOME INFORMATION MAY BE OMITTED. This clinical summary was aggregated from multiple sources. Caution should be exercised in using it in the provision of clinical care. This summary normalizes information from multiple sources, and as a consequence, information in this document may materially change the coding, format and clinical context of patient data. In addition, data may be omitted in some cases. CLINICAL DECISIONS SHOULD BE BASED ON THE PRIMARY CLINICAL RECORDS. [facility] [employer] provides no warranty or guarantee of the accuracy or completeness of information in this document.
== END 2023-06-05 10:59 | disposition home or self-care (01) ==
LOC: VC 10:58
PROVIDERS: PCP Radiology Diagnostic Radiology; Visit Provider Radiology Diagnostic Radiology
DX: I83.813 Varicose veins of bilateral lower extremities with pain (principal)
CPT/HCPCS: 36471

== ENCOUNTER 2023-06-06 08:26 | Outpatient (OUT) | payer OTHER, SELFPAY ==
--- NOTE | 2023-06-06 08:28 | VEIN_ITS ---
[address] [address] Patient Name: NICOLE DOWLING MRN: [id number] date: 1970 Sex: F Assigned Patient Location: Current Patient Location: Accession/Order Number: [id number] Exam Date: 06/06/2023 08:40 Report Date: 06/06/2023 12:03 At the request of: HEMAL JONES Procedure: VC INJ Sclerosing SOLMULT Vein EXAMINATION: VC INJ Sclerosing SOLMULT Vein HISTORY: Pain due to varicose veins of bilateral legs I83.813 The risks and benefits of the procedure were explained at length to the patient and informed written consent was obtained. The procedure was performed under sterile technique. The patient's leg was wrapped with Coban and postprocedural verbal and written instructions provided. Rafia Dan RN was present and assisted. SCLEROSANT: 2mL 0.5% Polidocanol. VEIN(S) INJECTED: 26 veins in the left leg. VISUALIZATION: Ultrasound was not used to visualize the sclerosant. ANESTHESIA: Supercooled air. COMPLICATIONS: None. Electronically authenticated by: RIDDHI REIS Date: 06/06/2023 12:03
--- OUTSIDE RECORDS SUMMARY | 2023-06-06 08:31 | XMS_ITS | CCD ---
Author Name Unknown Address [address] [place] [address] Organization [facility] Care Team Providers Care Echocardiographer Name Role Phone Lisandro Montes Unavailable [phone] DO Milka Oliva Primary Care Provider DO Milka Oliva Attending Provider Milka Oliva Primary Care Unavailable Milka Oliva Attending Unavailable Milka Oliva Admitting Unavailable Milka Oliva Attending Unavailable Milka Oliva Admitting Unavailable Milka Oliva Primary Care Unavailable PAOLA SHORT Attending Unavailable IRINA OLIVA Attending Unavailable IRINA OLIVA Referring Unavailable IIRNA OLIVA Referring Unavailable Allergies Allergy Classification Reported Allergen(s) Allergy Type Date of Onset Reaction(s) Facility (5 sources) Clindamycin Drug Allergy 03-09-20 19 [facility] (5 sources) Latex Propensity to adverse reactions 03-25-20 17 Unknown, [facility] (4 sources) Penicillin Drug Allergy Unknown [facility] Other (3 sources) Sulfonamides (Antibiotic) Propensity to adverse reactions Unknown [facility] Other (3 sources) non ionic iv dye Propensity to adverse reactions Unknown [facility] Other (1 source) Penicillins Allergy to substance -04-04 17 [facility] (1 source) Sulfonamides (Antibiotic) Allergy to substance -10-20 17 [facility] (1 source) non-ionic IVP dye Allergy to substance 03-25-20 17 Sneezing [facility] (1 source) Iodinated contrast media (substance) Drug allergy Unknown [facility] Other (1 source) Substance with sulfonamide structure and antibacterial mechanism of action (substance) Drug allergy Unknown [facility] Other Medications Current Medications Medication Drug Class(es) Dates Sig (Normalized) Sig (Original) Acetaminophen (4 sources) Tylenol Active [id number] actuat albuterol 0.09 mg/actuat metered dose [...] Test Name Value Interpretation Reference Range Facility XR HUMERUS LEFTon 06-04-2023 XR HUMERUS LEFT EXAMINATION: XR HUMERUS LEFT HISTORY: Left upper extremity pain COMPARISON: None available TECHNIQUE: AP and lateral views of the left humerus FINDINGS: No acute or aggressive abnormality of the left humerus. Soft tissues appear within normal limits. IMPRESSION: No acute osseous abnormality. ELECTRONICALLY SIGNED BY: Rikki Bond, DO Normal Not Available CT soft tissue neck wo conon 05-30-2023 CT soft tissue neck wo [facility] [place] [address] CT Scan Report Signed Patient: Jessie Dowling MR#: [id number] : 1970 Acct:[id number] Age/Sex: 52 / F ADM Date: 05/30/23 Loc: CT Room: Type: [facility] Attending Dr: Milka Oliva DO Copies to: [...] Kana Perkins M.D.05/30/2023 12:51 PM Dictation Location: [place] [address] Transcribed By: [facility] 05/30/23 1251 Dictated By: Kana Perkins II, MD 05/30/23 1245 Signed By: 05/30/23 1251 [facility] Alanine aminotransferase [En zymatic activity/volume] in Serum or PlasmaOrdered By: Marques Oliva on 05-27-2023 ALT [Catalytic activity/Vol] 12 U/L [facility] Albumin [Mass/volume] in Ser um or Plasma by Bromocresol green (BCG) dye binding methoOrdered By: Marques Oliva on 05-27-2023 Albumin BCG dye [Mass/Vol] 4.3 g/dL 3.5-5.7 [facility] Alkaline phosphatase [Enzyma tic activity/volume] in Serum or PlasmaOrdered By: Marques Oliva on 05-27-2023 ALP [Catalytic activity/Vol] 68 U/L 34-104 [facility] Aspartate aminotransferase [ Enzymatic activity/volume] in Serum or PlasmaOrdered By: Marques Oliva on 05-27-2023 AST [Catalytic activity/Vol] 16 U/L 13-39 [facility] Basophils Auto (Bld) [#/Vol] Ordered By: Marques Oliva on 05-27-2023 Basophils (Bld) [#/Vol] 0.1 10*3/uL 0.0-0.2 [facility] Basophils/100 WBC Auto (Bld) Ordered By: Marques Oliva on 05-27-2023 Basophils/100 WBC (Bld) 1.1 % . [facility] Bilirubin.total [Mass/volume ] in Serum or PlasmaOrdered By: Marques Oliva 05-27-2023 Bilirubin [Mass/Vol] 0.3 mg/dL 0.3-1.0 [facility] Calcium [Mass/volume] in Ser um or PlasmaOrdered By: Marques Oliva 05-27-2023 Calcium [Mass/Vol] 9.6 mg/dL 8.6-10.3 [facility] Carbon dioxide, total [Moles /volume] in Serum or PlasmaOrdered By: Marques Oliva on 05-27-2023 CO2 [Moles/Vol] 27.2 mmol/L 21.0-31.0 [facility] Chloride [Moles/volume] in S vangie or PlasmaOrdered By: Marques Oliva on 05-27-2023 Chloride [Moles/Vol] 105 mmol/L 98-107 [facility] Cholesterol [Mass/volume] in Serum or PlasmaOrdered By: Marques Oliva on 12-12-2023 Cholesterol [Mass/Vol] 200 mg/dL 140-200 [facility] Comment on above: Chol less than 200 m g/dl low riskChol 201-239 mg/dl borderline riskChol 240 mg/dl and greater high risk Cholesterol in LDL Calc [Mas s/Vol]Ordered By: Marques Oliva on 05-27-2023 Cholesterol in LDL [Mass/Vol] 106 mg/dL 0-100 [facility] Comment on above: LDL ATP III CLASSIFI CATIONLDL less than 100 mg/dL OptimalLDL 100-129 mg/dL Near or above optimalLDL 130-159 mg/dL Borderline highLDL 160-189 mg/dL HighLDL greater than 189 mg/dL Very high Cholesterol in VLDL Calc [Ma ss/Vol]Ordered By: Marques Oliva on 05-27-2023 Cholesterol in VLDL [Mass/Vol] 22 mg/dL [facility] Complete Blood Count Auto Di ffon 05-27-2023 Basophils (Bld) [#/Vol] 0.1 10*3/uL Normal 0.0-0.2 [facility] Comment on above: Result Comment: PERF ORMED BY: [place] [address] PATHOLOGIST [employer] CHRIS BONILLA M.D. Performed By: #### V [id number], TSH3, T3T, T4F, LIPID, FE PRO, CMP, CBC #### [facility] [address] [place] [address] [place] Basophils/100 WBC (Bld) 1.1 % Normal . [facility] Comment on above: Performed By: #### V [id number], TSH3, T3T, T4F, LIPID, FE PRO, CMP, CBC #### [facility] [address] [place] [address] [place] Eosinophils (Bld) [#/Vol] 0.3 10*3/uL Normal 0.0-0.45 [facility] Comment on above: Performed By: #### V [id number], TSH3, T3T, T4F, LIPID, FE PRO, CMP, CBC #### [facility] [address] [place] [address] [place] Eosinophils/100 WBC (Bld) 4.4 % Normal . [facility] Comment on above: Performed By: #### V [id number], TSH3, T3T, T4F, LIPID, FE PRO, CMP, CBC #### [facility] [address] Erythrocyte distribution width (RBC) [Ratio] 14.8 % Normal 11.9-15.3 [facility] Comment on above: Performed By: #### V [id number], TSH3, T3T, T4F, LIPID, FE PRO, CMP, CBC #### [address] Hematocrit (Bld) [Volume fraction] 35.5 % Normal 34.0-46.4 [facility] Comment on above: Performed By: #### V [id number], TSH3, T3T, T4F, LIPID, FE PRO, CMP, CBC #### [address] Hemoglobin (Bld) [Mass/Vol] 11.9 g/dL Normal 11.8-15.4 [facility] Comment on above: Performed By: #### V [id number], TSH3, T3T, T4F, LIPID, FE PRO, CMP, CBC #### [address] Lymphocytes (Bld) [#/Vol] 1.7 10*3/uL Normal 1.00-4.8 [facility] Comment on above: Performed By: #### V [id number], TSH3, T3T, T4F, LIPID, FE PRO, CMP, CBC #### [address] Lymphocytes/100 WBC (Bld) 26.7 % Normal . [facility] Comment on above: Performed By: #### V [id number], TSH3, T3T, T4F, LIPID, FE PRO, CMP, CBC #### [address] MCH (RBC) [Entitic mass] 27.7 pg Normal 24.7-34.3 [facility] Comment on above: Performed By: #### V [id number], TSH3, T3T, T4F, LIPID, FE PRO, CMP, CBC #### [address] MCV (RBC) [Entitic vol] 82.6 fL Normal 80-100 [facility] Comment on above: Performed By: #### V [id number], TSH3, T3T, T4F, LIPID, FE PRO, CMP, CBC #### [address] Mean Corpuscular HGB Conc 33.5 g/dL Normal 32.0-35.0 [facility] Comment on above: Performed By: #### V [id number], TSH3, T3T, T4F, LIPID, FE PRO, CMP, CBC #### [address] Monocytes (Bld) [#/Vol] 0.5 10*3/uL Normal 0.0-0.8 [facility] Comment on above: Performed By: #### V [id number], TSH3, T3T, T4F, LIPID, FE PRO, CMP, CBC #### [address] Monocytes/100 WBC (Bld) 8.0 % Normal . [facility] Comment on above: Performed By: #### V [id number], TSH3, T3T, T4F, LIPID, FE PRO, CMP, CBC #### [address] Neutrophils (Bld) [#/Vol] 3.9 10*3/uL Normal 1.8-7.7 [facility] Comment on above: Performed By: #### V [id number], TSH3, T3T, T4F, LIPID, FE PRO, CMP, CBC #### [address] Neutrophils/100 WBC (Bld) 59.8 % Normal . [facility] Comment on above: Performed By: #### V [id number], TSH3, T3T, T4F, LIPID, FE PRO, CMP, CBC #### [address] NRBC% 0.1 /100{WBC} Normal 0-0.5 [facility] Comment on above: Performed By: #### V [id number], TSH3, T3T, T4F, LIPID, FE PRO, CMP, CBC #### [address] Platelet mean volume (Bld) [Entitic vol] 7.4 fL Normal 6.3-10.7 [facility] Comment on above: Performed By: #### V [id number], TSH3, T3T, T4F, LIPID, FE PRO, CMP, CBC #### [address] Platelets (Bld) [#/Vol] 360 10*3/uL Normal 150-450 [facility] Comment on above: Performed By: #### V [id number], TSH3, T3T, T4F, LIPID, FE PRO, CMP, CBC #### [address] RBC (Bld) [#/Vol] 4.30 10*6/uL Normal 3.60-5.00 [facility] Comment on above: Performed By: #### V [id number], TSH3, T3T, T4F, LIPID, FE PRO, CMP, CBC #### [address] WBC (Bld) [#/Vol] 6.5 10*3/uL Normal 3.8-11.6 [facility] Comment on above: Performed By: #### V [id number], TSH3, T3T, T4F, LIPID, FE PRO, CMP, CBC #### [address] Comprehensive Metabolic Pane mayra 05-27-2023 Albumin [Mass/Vol] 4.3 g/dL Normal 3.5-5.7 [facility] Comment on above: Performed By: #### V [id number], TSH3, T3T, T4F, LIPID, FE PRO, CMP, CBC #### [address] Albumin/Globulin [Mass ratio] 1.7 {ratio} Normal [facility] Comment on above: Performed By: #### V [id number], TSH3, T3T, T4F, LIPID, FE PRO, CMP, CBC #### [address] ALP [Catalytic activity/Vol] 68 U/L Normal 34-104 [facility] Comment on above: Performed By: #### V [id number], TSH3, T3T, T4F, LIPID, FE PRO, CMP, CBC #### [address] ALT [Catalytic activity/Vol] 12 U/L Normal 7-52 [facility] Comment on above: Performed By: #### V [id number], TSH3, T3T, T4F, LIPID, FE PRO, CMP, CBC #### [address] Anion gap [Moles/Vol] 11.4 mmol/L Normal 6.0-15.0 [facility] Comment on above: Performed By: #### V [id number], TSH3, T3T, T4F, LIPID, FE PRO, CMP, CBC #### [address] AST [Catalytic activity/Vol] 16 U/L Normal 13-39 [facility] Comment on above: Performed By: #### V [id number], TSH3, T3T, T4F, LIPID, FE PRO, CMP, CBC #### [address] Bilirubin [Mass/Vol] 0.3 mg/dL Normal 0.3-1.0 [facility] Comment on above: Performed By: #### V [id number], TSH3, T3T, T4F, LIPID, FE PRO, CMP, CBC #### [facility] [address] Calcium [Mass/Vol] 9.6 mg/dL Normal 8.6-10.3 [facility] Comment on above: Performed By: #### V [id number], TSH3, T3T, T4F, LIPID, FE PRO, CMP, CBC #### [facility] [address] Chloride [Moles/Vol] 105 mmol/L Normal 98-107 [facility] Comment on above: Performed By: #### V [id number], TSH3, T3T, T4F, LIPID, FE PRO, CMP, CBC #### [facility] [address] CO2 [Moles/Vol] 27.2 mmol/L Normal 21.0-31.0 [facility] Comment on above: Performed By: #### V [id number], TSH3, T3T, T4F, LIPID, FE PRO, CMP, CBC #### [address] Creatinine [Mass/Vol] 0.89 mg/dL Normal 0.60-1.20 [facility] Comment on above: Performed By: #### V [id number], TSH3, T3T, T4F, LIPID, FE PRO, CMP, CBC #### [address] GFR/1.73 sq M.predicted MDRD (S/P/Bld) [Vol rate/Area] mL/min/{1.73_m2} [facility] Comment on above: Performed By: #### V [id number], TSH3, T3T, T4F, LIPID, FE PRO, CMP, CBC #### [address] Globulin (S) [Mass/Vol] 2.6 g/dL Normal [facility] Comment on above: Performed By: #### V [id number], TSH3, T3T, T4F, LIPID, FE PRO, CMP, CBC #### [facility] [address] Glucose [Mass/Vol] 101 mg/dL High 70-100 [facility] Comment on above: Result Comment: [facility][note 3] Glucose Reference Range is dependent on time and content of last meal. Glucose of more than 200 mg/dL in a nonstressed, ambulatory subject supports the diagnosis of Diabetes Mellitus. ADA recommended reference range Performed By: #### V [id number], TSH3, T3T, T4F, LIPID, FE PRO, CMP, CBC #### [facility] [address] Potassium [Moles/Vol] 4.6 mmol/L Normal 3.5-5.1 [facility] Comment on above: Performed By: #### V [id number], TSH3, T3T, T4F, LIPID, FE PRO, CMP, CBC #### [facility] [address] Protein [Mass/Vol] 6.9 g/dL Normal 6.4-8.9 [facility] Comment on above: Performed By: #### V [id number], TSH3, T3T, T4F, LIPID, FE PRO, CMP, CBC #### [facility] [address] [place] [id number] [place] Sodium [Moles/Vol] 139 mmol/L Normal 136-145 [facility] Comment on above: Performed By: #### V [id number], TSH3, T3T, T4F, LIPID, FE PRO, CMP, CBC #### [facility] [address] [place] [id number] [place] Urea nitrogen [Mass/Vol] 16 mg/dL Normal 7-25 [facility] Comment on above: Performed By: #### V [id number], TSH3, T3T, T4F, LIPID, FE PRO, CMP, CBC #### [facility] [address] [place] [id number] [place] Creatinine [Mass/volume] in Serum or PlasmaOrdered By: Marques Oliva on 05-27-2023 Creatinine [Mass/Vol] 0.89 mg/dL 0.60-1.20 [facility] Eosinophils Auto (Bld) [#/Vo l]Ordered By: Marques Oliva on 05-27-2023 Eosinophils (Bld) [#/Vol] 0.3 10*3/uL 0.0-0.45 [facility] Eosinophils/100 WBC Auto (Bl d)Ordered By: Marques Oliva on 05-27-2023 Eosinophils/100 WBC (Bld) 4.4 % . [facility] Erythrocyte distribution wid th Auto (RBC) [Ratio]Ordered By: Marques Oliva on 05-27-2023 Erythrocyte distribution width (RBC) [Ratio] 14.8 % 11.9-15.3 [facility] FE PROon 05-27-2023 % Iron Saturation 7.9 % Low 20-50 [facility] Comment on above: Performed By: #### V [id number], TSH3, T3T, T4F, LIPID, FE PRO, CMP, CBC #### [facility] [address] [place] [address] [place] Ferritin [Mass/Vol] 8.8 ng/mL Low 11.0-306.8 [facility] Comment on above: Performed By: #### V [id number], TSH3, T3T, T4F, LIPID, FE PRO, CMP, CBC #### [facility] [address] [place] [id number] [place] Iron [Mass/Vol] 37 ug/dL Low 50-212 [facility] Comment on above: Performed By: #### V [id number], TSH3, T3T, T4F, LIPID, FE PRO, CMP, CBC #### [facility] [address] [place] [id number] [place] Total Iron Binding Capacity 466 ug/dL High 255-450 [facility] Comment on above: Performed By: #### V [id number], TSH3, T3T, T4F, LIPID, FE PRO, CMP, CBC #### [facility] [address] [place] [id number] [place] Transferrin [Mass/Vol] 333 mg/dL Normal 203-362 [facility] Comment on above: Performed By: #### V [id number], TSH3, T3T, T4F, LIPID, FE PRO, CMP, CBC #### [facility] [address] Ferritin [Mass/volume] in Se rum or PlasmaOrdered By: Marques Oliva on 05-27-2023 Ferritin [Mass/Vol] 8.8 ng/mL 11.0-306.8 [facility] Folate [Mass/volume] in Seru m or PlasmaOrdered By: Marques Oliva on 05-27-2023 Folate [Mass/Vol] 13.7 ng/mL >5.9 [facility] Comment on above: Folate reference ran ge: >5.9 ng/mlThe WHO technical consultation on folate and vitamin [id number] has determined that folate concentrations lessthan 4 ng/ml are considered deficient. Free T4 (Free Thyroxine)on 07-28-2022 Free T4 [Mass/Vol] 0.80 ng/dL Normal 0.61-1.12 [facility] Comment on above: Performed By: #### V [id number], TSH3, T3T, T4F, LIPID, FE PRO, CMP, CBC #### [facility] [address] Globulin Calc (S) [Mass/Vol] Ordered By: Marques Oliva on 05-27-2023 Globulin (S) [Mass/Vol] 2.6 g/dL [facility] Glucose [Mass/volume] in Ser um or PlasmaOrdered By: Marques Oliva on 05-27-2023 Glucose [Mass/Vol] 101 mg/dL 70-100 [facility] Comment on above: ADA recommended refe rence rangeRandom Glucose Reference Range is dependent on time and content of last meal. Glucose of more than 200 mg/dL in a nonstressed, ambulatory subject supports the diagnosis of Diabetes Mellitus. Hematocrit Auto (Bld) [Volum e fraction]Ordered By: Marques Oliva on 05-27-2023 Hematocrit (Bld) [Volume fraction] 35.5 % 34.0-46.4 [facility] Hemoglobin [Mass/volume] in BloodOrdered By: Marques Nascimentodara on 05-27-2023 Hemoglobin (Bld) [Mass/Vol] 11.9 g/dL 11.8-15.4 [facility] Iron [Mass/volume] in Serum or PlasmaOrdered By: Marques Nascimentodara on 05-27-2023 Iron [Mass/Vol] 37 ug/dL 50-212 [facility] Iron binding capacity [Mass/ volume] in Serum or PlasmaOrdered By: Marques Nascimentodara on 05-27-2023 Iron binding capacity [Mass/Vol] 466 ug/dL 255-450 [facility] Iron saturation [Mass Fracti on] in Serum or PlasmaOrdered By: Marques Nascimentodara on 05-27-2023 Iron saturation [Mass fraction] 7.9 % 20-50 [facility] Leukocytes [#/volume] correc solange for nucleated erythrocytes in Blood by Automated counOrdered By: Marques Azamdara on 05-27-2023 WBC corrected for nucl RBC Auto (Bld) [#/Vol] 6.5 10*3/uL 3.8-11.6 [facility] Lipid Panelon 05-27-2023 Cholesterol [Mass/Vol] 200 mg/dL Normal 140-200 [facility] Comment on above: Result Comment: Chol less than 200 mg/dl low risk Chol 201-239 mg/dl borderline risk Chol 240 mg/dl and greater high risk Performed By: #### V [id number], TSH3, T3T, T4F, LIPID, FE PRO, CMP, CBC #### [facility] [address] Cholesterol in HDL [Mass/Vol] 72 mg/dL Normal 23-92 [facility] Comment on above: Result Comment: HDL CHOL ATP-III CLASSIFICATION Cardiovascular Risk HDL > or equal to 60 mg/dL LOW HDL < 40 mg/dL HIGH Performed By: #### V [id number], TSH3, T3T, T4F, LIPID, FE PRO, CMP, CBC #### [facility] [address] [place] [address] [facility] Cholesterol.total/Choles terol in HDL [Mass ratio] 2.8 {ratio} Normal <5.0 [facility] Comment on above: Performed By: #### V [id number], TSH3, T3T, T4F, LIPID, FE PRO, CMP, CBC #### [facility] [address] LDL Cholesterol,Calculated 106 mg/dL High 0-100 [facility] Comment on above: Result Comment: LDL ATP III CLASSIFICATION LDL less than 100 mg/dL Optimal LDL 100-129 mg/dL Near or above optimal LDL 130-159 mg/dL Borderline high LDL 160-189 mg/dL High LDL greater than 189 mg/dL Very high Performed By: #### V [id number], TSH3, T3T, T4F, LIPID, FE PRO, CMP, CBC #### [facility] [address] Triglyceride w/Reflex 112 mg/dL Normal 0-149 [facility] Comment on above: Result Comment: TRIG ATP III CLASSIFICATION TRIG less than 150 mg/dL Normal TRIG 150-199 mg/dL Borderline high TRIG 200-500 mg/dL High TRIG greater than 500 mg/dL Very high Standard traceable to the Center for Disease Conrtrol and Prevention (CDC) test method. Performed By: #### V [id number], TSH3, T3T, T4F, LIPID, FE PRO, CMP, CBC #### [facility] [address] VLDL CHOLESTEROL 22 mg/dL Normal [facility] Comment on above: Performed By: #### V [id number], TSH3, T3T, T4F, LIPID, FE PRO, CMP, CBC #### [facility] [address] Lymphocytes Auto (Bld) [#/Vo l]Ordered By: Marques Oliva on 05-27-2023 Lymphocytes (Bld) [#/Vol] 1.7 10*3/uL 1.00-4.8 [facility] Lymphocytes/100 WBC Auto (Bl d)Ordered By: Marques Oliva on 05-27-2023 Lymphocytes/100 WBC (Bld) 26.7 % . [facility] MCH Auto (RBC) [Entitic mass ]Ordered By: Marques Oliva on 05-27-2023 MCH (RBC) [Entitic mass] 27.7 pg 24.7-34.3 [facility] MCHC Auto (RBC) [Mass/Vol]Or dered By: Marques Oliva on 05-27-2023 MCHC (RBC) [Mass/Vol] 33.5 g/dL 32.0-35.0 [facility] MCV Auto (RBC) [Entitic vol] Ordered By: Marques Oliva on 05-27-2023 MCV (RBC) [Entitic vol] 82.6 fL 80-100 [facility] Monocytes Auto (Bld) [#/Vol] Ordered By: Marques Oliva on 05-27-2023 Monocytes (Bld) [#/Vol] 0.5 10*3/uL 0.0-0.8 [facility] Monocytes/100 WBC Auto (Bld) Ordered By: Marques Oliva on 05-27-2023 Monocytes/100 WBC (Bld) 8.0 % . [facility] Neutrophils Auto (Bld) [#/Vo l]Ordered By: Marques Oliva on 05-27-2023 Neutrophils (Bld) [#/Vol] 3.9 10*3/uL 1.8-7.7 [facility] Neutrophils/100 WBC Auto (Bl d)Ordered By: Marques Oliva on 05-27-2023 Neutrophils/100 WBC (Bld) 59.8 % . [facility] No Panel InformationOrdered By: Marques Oliva on 05-27-2023 Estimated GFR (CKD-EPI) > 60.0 mL/Min [facility] Creatinine Clearance (Chem N/A [facility] Nucleated erythrocytes [Pres ence] in Blood by Automated countOrdered By: Marques Oliva on 05-27-2023 Nucleated RBC Auto Ql (Bld) 0.1 /100{WBC} 0-0.5 [facility] Platelet mean volume Auto (B ld) [Entitic vol]Ordered By: Marques Oliva on 05-27-2023 Platelet mean volume (Bld) [Entitic vol] 7.4 fL 6.3-10.7 [facility] Platelets Auto (Bld) [#/Vol] Ordered By: Marques Oliva on 05-27-2023 Platelets (Bld) [#/Vol] 360 10*3/uL 150-450 [facility] Potassium [Moles/volume] in Serum or PlasmaOrdered By: Marques Oliva on 05-27-2023 Potassium [Moles/Vol] 4.6 mmol/L 3.5-5.1 [facility] Protein [Mass/volume] in Ser um or PlasmaOrdered By: Marques Oliva on 05-27-2023 Protein [Mass/Vol] 6.9 g/dL 6.4-8.9 [facility] RBC Auto (Bld) [#/Vol]Ordere d By: Marques Oliva on 05-27-2023 RBC (Bld) [#/Vol] 4.30 10*6/uL 3.60-5.00 [facility] Serum or plasma albumin/glob ulin mass ratioOrdered By: Marques Oliva on 05-27-2023 Albumin/Globulin [Mass ratio] 1.7 {ratio} [facility] Serum or plasma anion gap de terminationOrdered By: Marques Oliva on 05-27-2023 Anion gap [Moles/Vol] 11.4 mmol/L 6.0-15.0 [facility] Serum or plasma high density lipoprotein (HDL) cholesterol measurementOrdered By: Marques Oliva on 05-27-2023 Cholesterol in HDL [Mass/Vol] 72 mg/dL 23-92 [facility] Comment on above: HDL CHOL ATP-III CLA SSIFICATION Cardiovascular RiskHDL > or equal to 60 mg/dL LOWHDL < 40 mg/dL HIGH Serum or plasma total choles terol/high density lipoprotein (HDL) cholesterol mass ratOrdered By: Marques Oliva on 05-27-2023 Cholesterol.total/Choles terol in HDL [Mass ratio] 2.8 {ratio} <5.0 [facility] Sodium [Moles/volume] in Ser um or PlasmaOrdered By: Marques Oliva on 05-27-2023 Sodium [Moles/Vol] 139 mmol/L 136-145 [facility] Thyroid Stimulating Hormoneo n 05-27-2023 TSH Qn 2.09 m[IU]/L Normal 0.45-5.33 [facility] Comment on above: Result Comment: PERF ORMED BY: [place] [address] PATHOLOGIST [employer] CHRIS BONILLA M.D. Performed By: #### V [id number], TSH3, T3T, T4F, LIPID, FE PRO, CMP, CBC #### [facility] [address] [place] [address] Thyrotropin [Units/volume] i n Serum or PlasmaOrdered By: Marques Oliva on 05-27-2023 TSH Qn 2.09 m[IU]/L 0.45-5.33 [facility] Thyroxine (T4) free [Mass/vo lume] in Serum or PlasmaOrdered By: Mraques Oliva on 05-27-2023 Free T4 [Mass/Vol] 0.80 ng/dL 0.61-1.12 [facility] Transferrin [Mass/volume] in Serum or PlasmaOrdered By: Marques Oliva on 05-27-2023 Transferrin [Mass/Vol] 333 mg/dL 203-362 [facility] Triglyceride [Mass/volume] i n Serum or PlasmaOrdered By: Marques Oliva on 05-27-2023 Triglyceride [Mass/Vol] 112 mg/dL 0-[address] [facility] Comment on above: TRIG ATP III CLASSIF ICATIONTRIG less than 150 mg/dL NormalTRIG 150-199 mg/dL Borderline highTRIG 200-500 mg/dL High TRIG greater than 500 mg/dL Very highStandard traceable to the Center for Disease Conrtrol and Prevention (CDC) test method. Triiodothyronine (T3) Totalo n 05-27-2023 Triiodothyronine (T3) Total 1.08 ng/mL Normal 0.87-1.78 [facility] Comment on above: Performed By: #### V [id number], TSH3, T3T, T4F, LIPID, FE PRO, CMP, CBC #### [facility] [address] Triiodothyronine (T3) [Mass/ volume] in Serum or PlasmaOrdered By: Marques Oliva on 05-27-2023 T3 [Mass/Vol] 1.08 ng/mL 0.87-1.78 [facility] Urea nitrogen [Mass/volume] in Serum or PlasmaOrdered By: Marques Oliva on 05-27-2023 Urea nitrogen [Mass/Vol] 16 mg/dL 7-25 [facility] Vit. B12/Folate Profileon Cobalamin (Vitamin B12) [Mass/Vol] 219 pg/mL Normal 180-914 [facility] Comment on above: Performed By: #### V [id number], TSH3, T3T, T4F, LIPID, FE PRO, CMP, CBC #### [facility] [address] Folate 13.7 ng/mL Normal >5.9 [facility] Comment on above: Result Comment: Thu te reference range: >5.9 ng/ml The WHO technical consultation on folate and vitamin b12 deficiencies has determined that folate concentrations less than 4 ng/ml are considered deficient. Performed By: #### V [id number], TSH3, T3T, T4F, LIPID, FE PRO, CMP, CBC #### [facility] [address] Vitamin B12 ser/plasOrdered By: Marques Oliva on 05-27-2023 Cobalamin (Vitamin B12) [Mass/Vol] 219 pg/mL 180-914 [facility] WBC Auto (Bld) [#/Vol]Ordere d By: Marques Nascimentodara on 05-27-2023 WBC (Bld) [#/Vol] 6.5 10*3/uL 3.8-11.6 [facility] US Thyroidon 04-23-2022 US Thyroid History: [...] signed by Garcia Nye on 04/23/2022 1517 Normal [facility] Chief Wellness Officer Coding Summaryon 11-05-2021 Coding Summary HTMLBase 64 ErffbukaOSr7vIl+PGhlY WQ+ZV7LEYFxT04laPIojC 2DV5iYBE0URBQSLAWNKK3 UCM9uuIV0NOsyS6EccvLw RokmsDDbBN49NYp0HVK2b WtgUTqupJ9jkGKnH3r5Od AgRH37kJ49SCdnYSGxAzN 3LjZpbjsgbWFy M2ahOaBraSCgVbr+PHRhY mxlIHdpZHRoPScxMDAlJy AazXpzCF3dEp1hBRNcQMW vbGxhcHNlOiBj c8puJRTcOSmiLH6ipBktC 8NfvRC4XLUyb8z0Gj69zT I+UZCxSHV8kChmOFuml97 9LpLia9guVRF9 rHGuARckBHG8V64pa4S0Z DWhHVVsHOZ2pQQ3mN4cnT gnghgqI8HmsRSyLaE5EJZ 5oEOxeP5ofUav ljcglH9uVca+Q74FWB1CM YTDSB2OWef0Q5XqIfsksI I+TX18YVIvCL13kZOroWK mv0ymtQb1QsFg OWKhJOE3gBkrNHfdv5HxR VDfI21aeMTly9B9MTAhbX hcwBZgFhOpmFL1lS1xCXj qdirln7kaktfh Xwvbv5ztwu26lZ24W84vD IhkLIItZZG9IJZhVRIdqU ilyv3xhH9vNb4+LMhbg2n pq7ovhJf9MzMj UZHjgiJivPipGTA2n1HhJ k41B9PykHdlt5QcZgv0db 75qZXmr4K6qFP9FLjsOLI znY7dSMitZaG2 XTTpYrHhyF42jNQfWEgnC z0ajBztyNonUE0qVVNvxl umWINhbZ4tWJCqyRZtrNe mPW8cVJKcjgpd f778ZfAlMAM8MPZijCDgE 2OcjB6dPsRcJTUnPXYzQ5 NonLUfSAvgY591FUcjQdZ 6SBJenyIpW6Lu WXVcwSmnBjD6b0D6Fh6Sy 8PcqsvoLTJ1DShhJWX4Oa WhSqLkOcA9R0ShZyn8FQP bbLwdRV4uN8Qk TJMhpqxpzejumWY8RFJkK TIltE88gFUjLEfsRu9cb4 S7c263QMQdWSAllH72Zr8 udDogMTBwdCBU pP7hoopch9eepxqlOeXaR NSgAWu0IFo0QHXryXpnAi AuYUJ3XuC1NHQ4aGXjtM6 duBrvnhghxI5l Oyc+H19paD1yPEC3RKK5s nrdNUZtvgZgEY44JF06H0 RyPjwvdGFibGU+PGRpdiB whFihFK5qFpJa d0pxq0EdPEblZ2GyJIIbL WbxLbg1APRsXWN4fQO6fD 1xIOVsHOlik9S4rUO5M8S mtzXjkl5dt1tr BPSmJOhcZ17feDAui6W7F MBtaCU1ITCbwJljCpRyhC 93Oyc+TWMmdKyvm3IfLdz dq0svj3rabMm7 LoPuCBPhnbEujSzvWSP4w 7PfHi78M41dRWelHOKkDU HhOWMtHZIorEbakh8cjH8 wIi8+PGNvbCB3 vSL4zP6uZROpEvF9CCobM 298JoSwwRXuGsbwk0bir4 nfnXu8IgBmHHCwhfOjgWg vEDS8o6OnUu28 A44kIJnvYCNwCFHqKEEmS GTpfJfehg3ikF7uDc7+PC 7lo3asak10cN48oPK+PHR dERS1rCltGOea PQSjlL6bORulIlI0JBTuT iHtoX16wRAeNVimXh0prD piwKsjTF2lITWsohbwe68 2TmNqi8eqZEZo lTTgOZliKVP9Y34lr2R8U ZIpBNWwMQG4gJR3rL5lsR lnbjogbGVmdDsgdmVydGl aTMdzSEclM858 IHRvcDsnPlBhdGllbnQgT oXuKAa7G5GzHvs9QTTswZ akHH7iaZNoVWnbKo9yvMy auSjfRL7uUQFh kaxdb384QjLlj9ewAOImn MUaVQzySBM6B80ge8R3EN SuPOSmNJJ8bUT9iA2dnPb nbjogbGVmdDsg gaTruPztRRyoLShgW705C HRvcDsnPkJpcnRoIERhdG B8DJ96RQ41cXXzu9U2gIP 0V2HsGXWnjvlz uisuaDM1QKOoGZDnaN97H d4fwIqcKc3cWOGkFPH1DM QbcJSnQ5DrtS0sWdDzCAL yMSYaF5JpzPSz XCldO216OFozFvM2WKBip bKoK9JkGWDqzHyuZjQ2r5 O9Yc6XW0I7TU93GP02tLI ah7D1kJU0S0Xq GAVubrigdyxcvYG7PUQhH MCeoG04My8kiAslCd1lAH OhKKV1MIHoxKHyJ0QmgX3 yOiAjMDAwMDAw C8PjiGQyYRmqG495YYuiE lH3CVWjmdPgO5WbKWIjnI shCeC2s1Y6My2YPTf7RI7 2GK79iGVyw8V4 uMB8Q9YuWWKneujdbdinj GW6NBEoOLZafC31Ua6duE rsDn1qMNReDEN6NNTvwBO pD0YxrH4bXrTf SWCtYFEjB9VidVBjOLrlQ 815NMpcDbJ7AMGunqGmY4 VxPQEaySvtFpX2m7C2Sj8 PWKFdFQ39LFR2 gAW7UH20ZZ63J5MsMjtne GFibGU+PHRhYmxlIHdpZH RoPScxMDAlJyBzdHlsZT0 lXj5cVLNrFGEb qWhalTTePbFly2ffNKMzO JsfBH1qaLknY3TcoXS1TX Ooe9x3Zv65V53eM4FhnVD +UKSfkUC9bCW8 oI7lQiOoYfF5JJwiB647P wObkBAkLubph9xxq5kpiP v8EyK7SHJggaNezPsjKQL 2i1LxRg47H49e IHdpZHRoPSIxNSUiIHZhb Adnqm3trG3yAa5+PGNvbC R2tQF0kB7hNhMqAkV8MVq rH764GwBprFCi Qhoyl4rry8lfjFe3HlKlI HKpjpNxxCuvDHI9t6PbCa 04Y0DlmEaxu0DkAja9cu6 9bEEjv5I8kGQ0 E5HzYBNqwqbhqRIpeNibL F0yEFBxkkinJRUlnT7vUK BxJ4k9WjWaAtI3GLfsV2J fydB4CIRiqVMj AUasHXA2Y22cf0R6DDMmV TZkOPN3gJU6sK3lvFajij ogbGVmdDsgdmVydGljYWw vOJsmB056VGCk yKevIBEjwI2bYEDwjEFxd MlrDL0yDVVwjmriPnQKMQ 7EIB9mJKSLSRpJGQOVALZ NQVJJRTwvdGQ+ UFLwWRW9pMawPVtmWGDrn M4tNYQyW0v9LlAnOpV2HS jvX5JcHPHxnbpxUn60lL8 jOsHuLhG8FZaa Z2LyeoP3SAJrrLOsODnzU GV5U62kc2M2RLXyCNGsIL S2bZC2bV2neFlersnofQR mdDsgdmVydGlj LFzcVQmwN081OCXylTlqI iKpGaS9NnM4ZqJ1R9WvLz b2IVBgyQcjNP5tyOMxXQn jBq3gtBfkzPri NF6yKULpoodaLBXebU2yA HCnaMXvfUquRC7qILIodq eno487KtIfYSJ6OHFlmWD zV5BxdM7lIpAa UXMaYBLxC0TdwFLxNMtzC 591YSyuZrJ0YDTnknDaK7 RaADVlySikTzK2u6Q0Xt9 1MSBZZWFyczwv dGQ+ICLwQMK3eBghQGmvB REjyH0fKOEvN0u2SkNwSq S4SKisP4EdMYKrvvwyFn2 7sN5rUuIzIzL0 AFacF9RkqkM8UOTqqYMxE UubPUW8P56fk6D3BNGtZT LeWTK9xDI2bJ8jrMgcmyw gbGVmdDsgdmVy kKexNNccSQqtV163OTFss DsnPkZFTUFMRTwvdGQ+PH RhYEQ4zWqwDYejAAXrhE8 yZQOeH7i2NeMy GiG4YQdvB0BcWBZoufdhX y07kX3fDtCdCkQ4GIqlJ5 NqyxY6QSJamTPnCIwnDKO 8Y42nf9Z4AOMm EARpUJN9lYQ0rQ3evXxid jogbGVmdDsgdmVydGljYW drNOdcX717MFWqzTacFt8 KUH16BJ72C7Kb PjwvdGFibGU+PHRhYmxlI HdpZHRoPScxMDAlJyBzdH phUG7hCw2bYVQkQFPthDb bfSUbJlQwb1uk SDZcJYchXQ0vdSdpS6Dgf HZ8VBWof9g8Sm34M28aO7 JvdXA+RLKiqHC4jIP6nM2 hYtOlLrB3EGod G871FsFfzHVcLqsgy5gns 2xfhRf5OsPuFAMvocCguP vkXUJ6g4NlWp07R25rDAg pZHRoPSIyMCUi YUYwnYwvrr1fsG7bRa0+P WPmmZW5tNZ9qT2xEtFoWv I3QMsdQ325AcKprHPbTqo eJ71gR9XotTS+ WUEgZgz3DFWovCwjCV3vl FPoCAcnIl9nVOM7QkYrTp DaXTvmE4VaJPSvqlhlxkd siYW7CSLkYCRq lT97Qf5xaSlfHf7rQXTqH PA6QKUouMYlL4PpvJ0zLp AaDOTxEGBoY9VygJDzFXd hB551JLysRoR9 EUDtzcUeI0KbPBGivVaxZ hW7b1P5Hv5FuMlqzNAlHZ 2gIjEiWWn1D3KeEom1MST ffRclMG6qaUXx CEhrKl1egRdlqBmmNP4yC RQliqlgj220JdHjt6ssKW NdxMBwIOagYHK8S54nb5M 0WTIpCPOeKXK5 hBV2dV8viNdvoilwoADmw DsgdmVydGljYWwtYWxpZ2 30IOHddKsdNnKNGxc5P2Q nCke9DTDiaIce OU5jgDHyZHtuSb6zqOcnt IplQX3lRYRmmxcxt754Mb Ylx7erAHAktJMdBBnnPOG 3K20yw5I7ARUq ZTBmXQK1fWI0jJ3ncQvvw jogbGVmdDsgdmVydGljYW dgZVubV143TFBhiDckHj1 VUos6K6ZlSkj9 FWMkoOnvUV0scVLqGStkD n7zsGuurKlqPK4bGRAuyg ojs005VyMmr1lqORSniYL tRFvpWPX4A53l p2N4BOZcPUGdMML6eBM5q Y6okGidgktjuSRqhXikfi QayLyoPPqlNAnmZ082UXK vcDsnPlBheWVy OjwvdGQ+ZD51xu03N6GlR gueLdu2QPXeQOL8dII9wS 5aHKMdHSjwd5N6qLX8M6Z cfcNerv2sa5tx YXB (more content not included)... Normal [facility] ED Clinical Summaryon 2021 ED Clinical Summary [facility] ? Urgent Care [address] [place], [place] [id number] Clinical Summary PERSON INFORMATION Name: JESSIE DOWLING Age: 51 Years Sex: FEMALE : 1970 MRN: Acct#: Visit Reason: UC - Ankle/Foot/Toe Pain or Swelling; LEFT ANKLE PAIN/INJURY Arrival: 10/31/2021 10:43:27 Discharge: 10/31/2021 13:15:00 LOS: 000 02:32 Check In: 10/31/2021 10:43:27 Checkout: 10/31/2021 13:15:00 Address: [address] [place] [address] PCP: IRINA OLIVA PROVIDER INFORMATION Provider Role Assigned Unassigned Pete Bishop ED PA 10/31/2021 10:46:19 Albaro RN, Erika [...] Home PATIENT EDUCATION INFORMATION Instructions: Hypertension, Adult, Olit-pl-Ubda; Ankle Sprain, Utiv-gd-Lezx Follow-Up: With: Address: When: IRINA Kruse [address] [facility] [address] [place] [address] Business (1) Comments: Radiologist interpretation negative for fracture If the pain continues or fails to resolve Follow-up with Dr. Trivedi instructional design specialist Dr. Trivedi's office is located at [address] [place] [address] Wear the Alfa wrap while active, remove [...] verbalizes understanding of instructions given Comment: Normal [facility] ED Patient Summaryon 022 ED Patient Summary [facility] ? Urgent Care [address] [place], [place] [address] PATIENT DISCHARGE INSTRUCTIONS Patient Information Name: JESSIE DOWLING Age: 51 Years Date of : 1970 Reason For Visit: UC - Ankle/Foot/Toe Pain or Swelling; LEFT ANKLE PAIN/INJURY Arrival Time: 10/31/2021 10:43:27 Primary Care Physician: IRINA OLIVA Attending Physician: Pete Bishop Comment: Patient Education With: Address: When[facility] [address] [place] [address] [employer] (1) Comments: Radiologist interpretation negative for fracture If the pain continues or fails to resolve Follow-up with Dr. Trivedi instructional design specialist Dr. Trivedi's office is located at [address] [place] [address] Wear the Alfa wrap while active, remove [...] cigarettes, e-cigaret (more content not included)... Normal [facility] Test Urine U Preg Negative Normal [facility] Comment on above: Performed By: #### [id number] #### [facility] (DEFAULT) [address] [place] [address] U Preg Internal Control Pass Normal [facility] Comment on above: Performed By: #### [id number] #### [facility] (DEFAULT) [address] [place] [address] Urgent Care Note- Provideron 10-31-2021 Urgent Care [...] Impression and Plan Diagnosis Left ankle pain (OZE69-BH M25.572, Discharge, Medical) Elevated blood pressure reading (JCZ38-KK R03.0, Discharge, Medical) Left ankle sprain (QYO49-QE S93.402A, Discharge, Medical) Plan Patient was given the following educational materials: Ankle Sprain, Steh-sg-Xiah, Ankle Sprain, Aeew-wm-Lqqp, Hypertension, Adult, Fwji-rp-Frwi. Follow up with: IRINA OLIVA Radiologist interpretation negative for fracture (more content not included)... Normal [facility] Urgent Care [place] 022 Urgent Care Record [facility] ? Urgent Care [address] [place] [address] PATIENT DISCHARGE INSTRUCTIONS Patient Information Name: JESSIE [...] (S93.402A) UC - Ankle/Foot/Toe Pain or Swelling ([id number]) If you received any narcotics, sedation, or [...] legal documents With: Address: When: IRINA OLIVA [facility] [address] [facility] [address] [place] [address] Business (1) Comments: Radiologist interpretation negative for fracture If the pain continues or fails to resolve Follow-up with Dr. Trivedi instructional design specialist Dr. Trivedi's office is located at [address] [place] [address] Wear the Alfa wrap while active, remove [...] and treatment you received today in the [facility] were for an urgent problem and are not intended as complete care. It is important for you to follow up with a doctor, nurse practitioner, or physician?s front office assistant for ongoing care. If your symptoms [...] so we can reach you if necessary. [facility] has provided you with a complete list of medications post discharge. 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 [facility] XR Ankle Complete Lefton XR Ankle Complete [...] Christianson MD 10/31/21 12:37 p Technologist: JOSE [facility] Vital Signs Date Time Vital Sign Value Performing Clinician Eugenio marcial 05-27-2023 08:45-0500 Body height 167.64 cm Lisandro Montes Other [facility] Other 05-27-2023 08:45-0500 Body mass index (BMI) [Ratio] 32.76 kg/m2 Lisandro Montes Other [facility] Other 05-27-2023 08:45-0500 Body temperature 96.5 [degF] Lisandro Montes Other [facility] Other 05-27-2023 08:45-0500 Body weight 92.08 kg Lisandro Torresno Other [facility] Other 05-27-2023 08:45-0500 Diastolic blood pressure 75 mm[Hg] Lisandro Montes Other [facility] Other 05-27-2023 08:45-0500 Respiratory rate 20 /min Lisandro Montes Other [facility] Other 05-27-2023 08:45-0500 SaO2% (BldA) [Mass fraction] 100 % Lisandro Montes Other [facility] Other 05-27-2023 08:45-0500 Systolic blood pressure 115 mm[Hg] Lisandro Montes Other [facility] Other 03-07-2022 10:30-0400 Body height 167.64 cm Lisandro Montes Other [facility] Other 03-07-2022 10:30-0400 Body mass index (BMI) [Ratio] 32.92 kg/m2 Christleydier Jyoti Other [facility] Other 03-07-2022 10:30-0400 Body temperature 97.5 [degF] Christopher Jyoti Other [facility] Other 03-07-2022 10:30-0400 Body weight 92.53 kg Christopher Jyoti Other [facility] Other 03-07-2022 10:30-0400 Diastolic blood pressure 85 mm[Hg] Christleydier Jyoti Other [facility] Other 03-07-2022 10:30-0400 Respiratory rate 20 /min Dreer Jyoti Other [facility] Other 03-07-2022 10:30-0400 SaO2% (BldA) [Mass fraction] 97 % Christleydier Jyoti Other [facility] Other 03-07-2022 10:30-0400 Systolic blood pressure 133 mm[Hg] Dreer Jyoti Other [facility] Other 03-08-2021 10:30-0400 Body height 167.64 cm Christleydier Jyoti Other [facility] Other 03-08-2021 10:30-0400 Body mass index (BMI) [Ratio] 36.8 kg/m2 Christopher Jyoti Other [facility] Other 03-08-2021 10:30-0400 Body temperature 96.9 [degF] Dreer Jyoti Other [facility] Other 03-08-2021 10:30-0400 Body weight 103.42 kg Lisandro Montes Other [facility] Other 03-08-2021 10:30-0400 Diastolic blood pressure 84 mm[Hg] Lisandro Montes Other [facility] Other 03-08-2021 10:30-0400 Respiratory rate 20 /min Lisandro Montes Other [facility] Other 03-08-2021 10:30-0400 SaO2% (BldA) [Mass fraction] 100 % Lisandro Montes Other [facility] Other 03-08-2021 10:30-0400 Systolic blood pressure 160 mm[Hg] Lisandro Montes Other [facility] Other Encounters Encounter Date Encounter Type Care Provider Facility Start: 06-04-2023 End: 06-04-2023 ambulatory IRINA OLIVA Not Available Start: 06-02-2023 End: 06-02-2023 ambulatory PAOLA SHORT Not Available Start: 05-30-2023 End: 05-30-2023 ambulatory Milka Oliva Facility:[facility] Start: 05-27-2023 Office outpatient visit 15 minutes Lisandro Montes [facility] Start: 05-27-2023 End: 05-27-2023 ambulatory Milka Oliva Facility:[facility] Start: 05-27-2023 End: 05-27-2023 ambulatory DO Milka Oliva Work Phone: [facility] [employer] Other Start: 05-27-2023 End: 05-27-2023 Patient encounter procedure DO Milka Oliva Work Phone: [facility] [place] Work Phone: Start: 03-07-2022 End: 03-07-2022 ambulatory Lisandro Montes Other [facility] Other Start: 03-07-2022 Office outpatient visit 15 minutes Lisandro Montes [facility] Start: 09-11-2021 End: 09-11-2021 ambulatory Lisandro Montes Other [facility] Other Start: 09-11-2021 Telephone encounter Lisandro johnsono [facility] Start: 03-08-2021 Office outpatient visit 15 minutes Lisandro Torresno [facility] Payers Date Payer Category Payer Unknown [id number]. [id number] 1970 Unknown [id number] 1970 Unknown [id number] 1970 Unknown [id number] Medicaid [employer] [id number] 801 [id number] Self-pay Self Pay [id number] Social History Date Type Detail Facility Sex Assigned At [facility] Other Start: 1970 Sex Assigned At Female [facility] Evaluation note 05-27-2023 Note Date & Type Note Facility 05-27-2023 Evaluation note Encounter Date Diagnosis Assessment Notes May, Asthma, mild persistent (ICD-10 - J45.30) May, Pulmonary nodules (ICD-10 - R91.8) [facility] [employer] Other Evaluation note 09-22-2022 Note Date & Type Note Facility 03-07-2022 Evaluation note Encounter Date Diagnosis Assessment Notes Feb, Asthma, mild persistent (ICD-10 - J45.30) Feb, Pulmonary nodules (ICD-10 - R91.8) [facility] Other Clinical Note 10-31-2021 Note Date & [...] doctor. This is important. Medicines ? Take yaij-mbp-tmvkaww and prescription medicines only as told by [...] forces your h (more content not included)... [facility] Evaluation note 03-08-2021 Note Date & Type Note Facility 03-08-2021 Evaluation note Encounter Date Diagnosis Assessment Notes Feb, Asthma, mild persistent (ICD-10 - J45.30) Feb, Pulmonary nodules (ICD-10 - R91.8) [facility] Other Evaluation note Note Date & Type Note Facility Evaluation note No Information [employer] Other Evaluation note Note Date & Type Note Facility Evaluation note No assessment information [facility] Work Phone: History general Narrative - Reported Note Date & Type Note Facility History general Narrative - Reported Type Medical History stress induced asthma Medical History hx of bronchitis Medical History lung chest nodule Surgical History perineal repair post vaginal child 2011 Surgical History tonsillectomy and adenoidectomy 1989 Surgical History wisdom teeth 1991 Surgical History Colonoscopy 2018 Hospitalization History see surgical hx Hospitalization History back injury [facility] ER 01/2020 Hospitalization History [facility] bronchitis [facility] Other History general Narrative - Reported Note Date & Type Note Facility History general Narrative - Reported Type Medical History stress induced asthma Medical History hx of bronchitis Medical History lung chest nodule Surgical History perineal repair post vaginal child 2011 Surgical History tonsillectomy and adenoidectomy 1989 Surgical History wisdom teeth 1990 Surgical History Colonoscopy 2017 Surgical History Vein ablation rt leg [facility] Hospitalization History see surgical hx Hospitalization History back injury [facility] 01/2020 Hospitalization History [facility] bronchitis [facility] Other Summary Purpose Family History No Family [...] section and content) DATE CREATED AUTHOR 11/06/2021 [facility] DATE CREATED AUTHOR AUTHOR'S ORGANIZ ATION 04/24/2022 [facility] Specialist DATE CREATED AUTHOR AUTHOR'S ORGANIZ ATION 06/01/2023 [facility] DATE CREATED AUTHOR AUTHOR'S ORGANIZ ATION 06/05/2023 [facility] d[facility] Specialists EPIC REASON FOR VISIT (unrecogniz ed section and [...] BE BASED ON THE PRIMARY CLINICAL RECORDS. [facility] [employer] [facility]. provides no warranty or guarantee of the accuracy or completeness of information in this document.
== END 2023-06-06 08:27 | disposition home or self-care (01) ==
LOC: VC 08:27
PROVIDERS: PCP Radiology Diagnostic Radiology; Visit Provider Radiology Diagnostic Radiology
DX: I83.813 Varicose veins of bilateral lower extremities with pain (principal)
CPT/HCPCS: 36471

== ENCOUNTER 2023-06-11 09:01 | Outpatient (OUT) | payer OTHER, SELFPAY ==
--- NOTE | 2023-06-11 | VEIN_ITS ---
[address] [address] Patient Name: NICOLE DOWLING MRN: [id number] date: 1970 Sex: F Assigned Patient Location: Current Patient Location: Accession/Order Number: [id number] Exam Date: 06/11/2023 09:04 Report Date: 06/11/2023 11:52 At the request of: HEMAL JONES Procedure: VC INJ Sclerosing SOLMULT Vein EXAMINATION: VC INJ Sclerosing SOLMULT Vein HISTORY: Pain due to varicose veins of bilateral legs I83.813 The risks and benefits of the procedure were explained at length to the patient and informed written consent was obtained. The procedure was performed under sterile technique. The patient's leg was wrapped with Coban and postprocedural verbal and written instructions provided. Román Bundy RN was present and assisted. SCLEROSANT: 2mL 0.5% Polidocanol. VEIN(S) INJECTED: 24 veins in the right leg. VISUALIZATION: Ultrasound was not used to visualize the sclerosant. ANESTHESIA: Supercooled air. COMPLICATIONS: None. Electronically authenticated by: RIDDHI REIS Date: 06/11/2023 11:52
== END 2023-06-11 09:02 | disposition home or self-care (01) ==
LOC: VC 09:01
PROVIDERS: PCP Radiology Diagnostic Radiology; Visit Provider Radiology Diagnostic Radiology
DX: I83.813 Varicose veins of bilateral lower extremities with pain (principal)
CPT/HCPCS: 36471

== ENCOUNTER 2023-06-12 10:24 | Outpatient (OUT) | payer OTHER, SELFPAY ==
--- NOTE | 2023-06-12 10:25 | VEIN_ITS ---
[address] [address] Patient Name: NICOLE DOWLING MRN: [id number] date: 1970 Sex: F Assigned Patient Location: Current Patient Location: Accession/Order Number: [id number] Exam Date: 06/12/2023 10:29 Report Date: 06/12/2023 11:28 At the request of: HEMAL JONES Procedure: VC INJ Sclerosing SOLMULT Vein EXAMINATION: VC INJ Sclerosing SOLMULT Vein HISTORY: I83.813 Bilateral painful varicose veins The risks and benefits of the procedure were explained at length to the patient and informed written consent was obtained. The procedure was performed under sterile technique. The patient's leg was wrapped with Coban and postprocedural verbal and written instructions provided. Román Bundy RN was present and assisted. SCLEROSANT: 2mL 0.5% Polidocanol. VEIN(S) INJECTED: 29 veins in the left leg. VISUALIZATION: Ultrasound was not used to visualize the sclerosant. ANESTHESIA: Supercooled air. COMPLICATIONS: None. Electronically authenticated by: RIDDHI REIS Date: 06/12/2023 11:28
--- OUTSIDE RECORDS SUMMARY | 2023-06-12 10:42 | XMS_ITS | CCD ---
Author Name Unknown Address [address] [facility] [address] [place] [address] Organization [facility] Care Team Providers Care Invasive Manager Name Role Phone Lisandro Montes Unavailable DO Milka Oliva Primary Care Provider DO Milka Oliva Attending Provider Milka Oliva Primary Care Unavailable Milka Oliva Attending Unavailable Milka Oliva Admitting Unavailable Milka Oliva Attending Unavailable Milka Oliva Admitting Unavailable Milka Oliva Primary Care Unavailable PAOLA SHORT Attending Unavailable IRINA OLIVA Attending Unavailable IRINA OLIVA Referring Unavailable IRINA OLIVA Referring Unavailable Allergies Allergy Classification Reported Allergen(s) Allergy Type Date of Onset Reaction(s) Facility (5 sources) Clindamycin Drug Allergy 03-09-20 19 [facility] (5 sources) Latex Propensity to adverse reactions 03-25-20 17 Unknown, [facility] (4 sources) Penicillin Drug Allergy Unknown [facility] Other (3 sources) Sulfonamides (Antibiotic) Propensity to adverse reactions Unknown [facility] Other (3 sources) non ionic iv dye Propensity to adverse reactions Unknown [facility] Other (1 source) Penicillins Allergy to substance 10-04-04 17 [facility] (1 source) Sulfonamides (Antibiotic) Allergy to substance -10-20 17 [facility] (1 source) non-ionic IVP dye Allergy to substance 03-25-20 17 Sneezing [facility] (1 source) Iodinated contrast media (substance) Drug allergy Unknown [employer] Other (1 source) Substance with sulfonamide structure and antibacterial mechanism of action (substance) Drug allergy Unknown [employer] Other Medications Current Medications Medication Drug Class(es) Dates Sig (Normalized) Sig (Original) Acetaminophen (4 sources) Tylenol Active [id number] actuat albuterol 0.09 mg/actuat metered dose [...] conon 05-30-2023 CT soft tissue neck wo [facility] [place] [place] [address] CT Scan Report Signed Patient: Jessie Dowling MR#: [id number] : 1970 Acct:[id number] Age/Sex: 52 / F ADM Date: 05/30/23 Loc: CT Room: Type: [facility] Attending Dr: Milka Oliva DO Copies to: [...] Kana Perkins M.D.05/30/2023 12:51 PM Dictation Location: [place] [address] Transcribed By: [facility] 05/30/23 1251 Dictated By: Kana Perkins II, MD 05/30/23 1245 Signed By: 05/30/23 1251 [facility] Alanine aminotransferase [En zymatic activity/volume] in Serum or PlasmaOrdered By: Marques Oliva on 05-27-2023 ALT [Catalytic activity/Vol] 12 U/L [facility] Albumin [Mass/volume] in Ser um or Plasma by Bromocresol green (BCG) dye binding methoOrdered By: Marques Oliva on 05-27-2023 Albumin BCG dye [Mass/Vol] 4.3 g/dL 3.5-5.7 [facility] Alkaline phosphatase [Enzyma tic activity/volume] in Serum or PlasmaOrdered By: Marques Oliva on 05-27-2023 ALP [Catalytic activity/Vol] 68 U/L 34-104 [facility] Aspartate aminotransferase [ Enzymatic activity/volume] in Serum or PlasmaOrdered By: Marques Oliva on 05-27-2023 AST [Catalytic activity/Vol] 16 U/L 13-39 [facility] Basophils Auto (Bld) [#/Vol] Ordered By: Marques Oliva on 05-27-2023 Basophils (Bld) [#/Vol] 0.1 10*3/uL 0.0-0.2 [facility] Basophils/100 WBC Auto (Bld) Ordered By: Marques Oliva on 05-27-2023 Basophils/100 WBC (Bld) 1.1 % . [facility] Bilirubin.total [Mass/volume ] in Serum or PlasmaOrdered By: Marques Oliva 05-27-2023 Bilirubin [Mass/Vol] 0.3 mg/dL 0.3-1.0 [facility] Calcium [Mass/volume] in Ser um or PlasmaOrdered By: Marques Oliva 05-27-2023 Calcium [Mass/Vol] 9.6 mg/dL 8.6-10.3 [facility] Carbon dioxide, total [Moles /volume] in Serum or PlasmaOrdered By: Marques Oliva on 05-27-2023 CO2 [Moles/Vol] 27.2 mmol/L 21.0-31.0 [facility] Chloride [Moles/volume] in S vangie or PlasmaOrdered By: Marques Oliva on 05-27-2023 Chloride [Moles/Vol] 105 mmol/L 98-107 [facility] Cholesterol [Mass/volume] in Serum or PlasmaOrdered By: Marques Oliva on 12-12-2023 Cholesterol [Mass/Vol] 200 mg/dL 140-200 [facility] Comment on above: Chol less than 200 m g/dl low riskChol 201-239 mg/dl borderline riskChol 240 mg/dl and greater high risk Cholesterol in LDL Calc [Mas s/Vol]Ordered By: Marques Oliva on 05-27-2023 Cholesterol in LDL [Mass/Vol] 106 mg/dL 0-100 [facility] Comment on above: LDL ATP III CLASSIFI CATIONLDL less than 100 mg/dL OptimalLDL 100-129 mg/dL Near or above optimalLDL 130-159 mg/dL Borderline highLDL 160-189 mg/dL HighLDL greater than 189 mg/dL Very high Cholesterol in VLDL Calc [Ma ss/Vol]Ordered By: Marques Oliva on 05-27-2023 Cholesterol in VLDL [Mass/Vol] 22 mg/dL [facility] Complete Blood Count Auto Di ffon 05-27-2023 Basophils (Bld) [#/Vol] 0.1 10*3/uL Normal 0.0-0.2 [facility] Comment on above: Result Comment: PERF ORMED BY: [place] [address] PATHOLOGIST BUCKLE SORTER CHRIS BONILLA M.D. Performed By: #### V [id number], TSH3, T3T, T4F, LIPID, FE PRO, CMP, CBC #### [facility] [address] [place] [address] [place] Basophils/100 WBC (Bld) 1.1 % Normal . [facility] Comment on above: Performed By: #### V [id number], TSH3, T3T, T4F, LIPID, FE PRO, CMP, CBC #### [facility] [address] [place] [address] [place] Eosinophils (Bld) [#/Vol] 0.3 10*3/uL Normal 0.0-0.45 [facility] Comment on above: Performed By: #### V [id number], TSH3, T3T, T4F, LIPID, FE PRO, CMP, CBC #### [facility] [address] [place] [address] [place] Eosinophils/100 WBC (Bld) 4.4 % Normal . [facility] Comment on above: Performed By: #### V [id number], TSH3, T3T, T4F, LIPID, FE PRO, CMP, CBC #### [facility] [address] Erythrocyte distribution width (RBC) [Ratio] 14.8 % Normal 11.9-15.3 [facility] Comment on above: Performed By: #### V [id number], TSH3, T3T, T4F, LIPID, FE PRO, CMP, CBC #### [address] Hematocrit (Bld) [Volume fraction] 35.5 % Normal 34.0-46.4 [facility] Comment on above: Performed By: #### V [id number], TSH3, T3T, T4F, LIPID, FE PRO, CMP, CBC #### [address] Hemoglobin (Bld) [Mass/Vol] 11.9 g/dL Normal 11.8-15.4 [facility] Comment on above: Performed By: #### V [id number], TSH3, T3T, T4F, LIPID, FE PRO, CMP, CBC #### [address] Lymphocytes (Bld) [#/Vol] 1.7 10*3/uL Normal 1.00-4.8 [facility] Comment on above: Performed By: #### V [id number], TSH3, T3T, T4F, LIPID, FE PRO, CMP, CBC #### [address] Lymphocytes/100 WBC (Bld) 26.7 % Normal . [facility] Comment on above: Performed By: #### V [id number], TSH3, T3T, T4F, LIPID, FE PRO, CMP, CBC #### [address] MCH (RBC) [Entitic mass] 27.7 pg Normal 24.7-34.3 [facility] Comment on above: Performed By: #### V [id number], TSH3, T3T, T4F, LIPID, FE PRO, CMP, CBC #### [address] MCV (RBC) [Entitic vol] 82.6 fL Normal 80-100 [facility] Comment on above: Performed By: #### V [id number], TSH3, T3T, T4F, LIPID, FE PRO, CMP, CBC #### [address] Mean Corpuscular HGB Conc 33.5 g/dL Normal 32.0-35.0 [facility] Comment on above: Performed By: #### V [id number], TSH3, T3T, T4F, LIPID, FE PRO, CMP, CBC #### [address] Monocytes (Bld) [#/Vol] 0.5 10*3/uL Normal 0.0-0.8 [facility] Comment on above: Performed By: #### V [id number], TSH3, T3T, T4F, LIPID, FE PRO, CMP, CBC #### [address] Monocytes/100 WBC (Bld) 8.0 % Normal . [facility] Comment on above: Performed By: #### V [id number], TSH3, T3T, T4F, LIPID, FE PRO, CMP, CBC #### [address] Neutrophils (Bld) [#/Vol] 3.9 10*3/uL Normal 1.8-7.7 [facility] Comment on above: Performed By: #### V [id number], TSH3, T3T, T4F, LIPID, FE PRO, CMP, CBC #### [address] Neutrophils/100 WBC (Bld) 59.8 % Normal . [facility] Comment on above: Performed By: #### V [id number], TSH3, T3T, T4F, LIPID, FE PRO, CMP, CBC #### [address] NRBC% 0.1 /100{WBC} Normal 0-0.5 [facility] Comment on above: Performed By: #### V [id number], TSH3, T3T, T4F, LIPID, FE PRO, CMP, CBC #### [address] Platelet mean volume (Bld) [Entitic vol] 7.4 fL Normal 6.3-10.7 [facility] Comment on above: Performed By: #### V [id number], TSH3, T3T, T4F, LIPID, FE PRO, CMP, CBC #### [address] Platelets (Bld) [#/Vol] 360 10*3/uL Normal 150-450 [facility] Comment on above: Performed By: #### V [id number], TSH3, T3T, T4F, LIPID, FE PRO, CMP, CBC #### [address] RBC (Bld) [#/Vol] 4.30 10*6/uL Normal 3.60-5.00 [facility] Comment on above: Performed By: #### V [id number], TSH3, T3T, T4F, LIPID, FE PRO, CMP, CBC #### [address] WBC (Bld) [#/Vol] 6.5 10*3/uL Normal 3.8-11.6 [facility] Comment on above: Performed By: #### V [id number], TSH3, T3T, T4F, LIPID, FE PRO, CMP, CBC #### [address] Comprehensive Metabolic Pane mayra 05-27-2023 Albumin [Mass/Vol] 4.3 g/dL Normal 3.5-5.7 [facility] Comment on above: Performed By: #### V [id number], TSH3, T3T, T4F, LIPID, FE PRO, CMP, CBC #### [address] Albumin/Globulin [Mass ratio] 1.7 {ratio} Normal [facility] Comment on above: Performed By: #### V [id number], TSH3, T3T, T4F, LIPID, FE PRO, CMP, CBC #### [address] ALP [Catalytic activity/Vol] 68 U/L Normal 34-104 [facility] Comment on above: Performed By: #### V [id number], TSH3, T3T, T4F, LIPID, FE PRO, CMP, CBC #### [address] ALT [Catalytic activity/Vol] 12 U/L Normal 7-52 [facility] Comment on above: Performed By: #### V [id number], TSH3, T3T, T4F, LIPID, FE PRO, CMP, CBC #### [address] Anion gap [Moles/Vol] 11.4 mmol/L Normal 6.0-15.0 [facility] Comment on above: Performed By: #### V [id number], TSH3, T3T, T4F, LIPID, FE PRO, CMP, CBC #### [address] AST [Catalytic activity/Vol] 16 U/L Normal 13-39 [facility] Comment on above: Performed By: #### V [id number], TSH3, T3T, T4F, LIPID, FE PRO, CMP, CBC #### [address] Bilirubin [Mass/Vol] 0.3 mg/dL Normal 0.3-1.0 [facility] Comment on above: Performed By: #### V [id number], TSH3, T3T, T4F, LIPID, FE PRO, CMP, CBC #### [facility] [address] Calcium [Mass/Vol] 9.6 mg/dL Normal 8.6-10.3 [facility] Comment on above: Performed By: #### V [id number], TSH3, T3T, T4F, LIPID, FE PRO, CMP, CBC #### [facility] [address] Chloride [Moles/Vol] 105 mmol/L Normal 98-107 [facility] Comment on above: Performed By: #### V [id number], TSH3, T3T, T4F, LIPID, FE PRO, CMP, CBC #### [facility] [address] CO2 [Moles/Vol] 27.2 mmol/L Normal 21.0-31.0 [facility] Comment on above: Performed By: #### V [id number], TSH3, T3T, T4F, LIPID, FE PRO, CMP, CBC #### [address] Creatinine [Mass/Vol] 0.89 mg/dL Normal 0.60-1.[address] [facility] Comment on above: Performed By: #### V [id number], TSH3, T3T, T4F, LIPID, FE PRO, CMP, CBC #### [address] GFR/1.73 sq M.predicted MDRD (S/P/Bld) [Vol rate/Area] mL/min/{1.73_m2} [facility] Comment on above: Performed By: #### V [id number], TSH3, T3T, T4F, LIPID, FE PRO, CMP, CBC #### [address] Globulin (S) [Mass/Vol] 2.6 g/dL Normal [facility] Comment on above: Performed By: #### V [id number], TSH3, T3T, T4F, LIPID, FE PRO, CMP, CBC #### [facility] [address] Glucose [Mass/Vol] 101 mg/dL High 70-100 [facility] Comment on above: Result Comment: [facility] Glucose Reference Range is dependent on time and content of last meal. Glucose of more than 200 mg/dL in a nonstressed, ambulatory subject supports the diagnosis of Diabetes Mellitus. ADA recommended reference range Performed By: #### V [id number], TSH3, T3T, T4F, LIPID, FE PRO, CMP, CBC #### [facility] [address] Potassium [Moles/Vol] 4.6 mmol/L Normal 3.5-5.[address] [facility] Comment on above: Performed By: #### V [id number], TSH3, T3T, T4F, LIPID, FE PRO, CMP, CBC #### [facility] [address] Protein [Mass/Vol] 6.9 g/dL Normal 6.4-8.9 [facility] Comment on above: Performed By: #### V [id number], TSH3, T3T, T4F, LIPID, FE PRO, CMP, CBC #### [facility] [address] [place] [id number] [place] Sodium [Moles/Vol] 139 mmol/L Normal 136-145 [facility] Comment on above: Performed By: #### V [id number], TSH3, T3T, T4F, LIPID, FE PRO, CMP, CBC #### [facility] [address] [place] [id number] [place] Urea nitrogen [Mass/Vol] 16 mg/dL Normal 7-25 [facility] Comment on above: Performed By: #### V [id number], TSH3, T3T, T4F, LIPID, FE PRO, CMP, CBC #### [facility] [address] [place] [id number] [place] Creatinine [Mass/volume] in Serum or PlasmaOrdered By: Marques Oliva on 05-27-2023 Creatinine [Mass/Vol] 0.89 mg/dL 0.60-1.[address] [facility] Eosinophils Auto (Bld) [#/Vo l]Ordered By: Marques Oliva on 05-27-2023 Eosinophils (Bld) [#/Vol] 0.3 10*3/uL 0.0-0.45 [facility] Eosinophils/100 WBC Auto (Bl d)Ordered By: Marques Oliva on 05-27-2023 Eosinophils/100 WBC (Bld) 4.4 % . [facility] Erythrocyte distribution wid th Auto (RBC) [Ratio]Ordered By: Marques Oliva on 05-27-2023 Erythrocyte distribution width (RBC) [Ratio] 14.8 % 11.9-15.3 [facility] FE PROon 05-27-2023 % Iron Saturation 7.9 % Low 20-50 [facility] Comment on above: Performed By: #### V [id number], TSH3, T3T, T4F, LIPID, FE PRO, CMP, CBC #### [facility] [address] [place] [address] [place] Ferritin [Mass/Vol] 8.8 ng/mL Low 11.0-306.8 [facility] Comment on above: Performed By: #### V [id number], TSH3, T3T, T4F, LIPID, FE PRO, CMP, CBC #### [facility] [address] [place] [id number] [place] Iron [Mass/Vol] 37 ug/dL Low 50-212 [facility] Comment on above: Performed By: #### V [id number], TSH3, T3T, T4F, LIPID, FE PRO, CMP, CBC #### [facility] [address] [place] [id number] [place] Total Iron Binding Capacity 466 ug/dL High 255-450 [facility] Comment on above: Performed By: #### V [id number], TSH3, T3T, T4F, LIPID, FE PRO, CMP, CBC #### [facility] [address] [place] [id number] [place] Transferrin [Mass/Vol] 333 mg/dL Normal 203-362 [facility] Comment on above: Performed By: #### V [id number], TSH3, T3T, T4F, LIPID, FE PRO, CMP, CBC #### [facility] [address] Ferritin [Mass/volume] in Se rum or PlasmaOrdered By: Marques Oliva on 05-27-2023 Ferritin [Mass/Vol] 8.8 ng/mL 11.0-306.8 [facility] Folate [Mass/volume] in Seru m or PlasmaOrdered By: Marques Oliva on 05-27-2023 Folate [Mass/Vol] 13.7 ng/mL >5.9 [facility] Comment on above: Folate reference ran ge: >5.9 ng/mlThe WHO technical consultation on folate and vitamin [id number] has determined that folate concentrations lessthan 4 ng/ml are considered deficient. Free T4 (Free Thyroxine)on 07-28-2022 Free T4 [Mass/Vol] 0.80 ng/dL Normal 0.61-1.12 [facility] Comment on above: Performed By: #### V [id number], TSH3, T3T, T4F, LIPID, FE PRO, CMP, CBC #### [facility] [address] Globulin Calc (S) [Mass/Vol] Ordered By: Marques Oliva on 05-27-2023 Globulin (S) [Mass/Vol] 2.6 g/dL [facility] Glucose [Mass/volume] in Ser um or PlasmaOrdered By: Marques Oliva on 05-27-2023 Glucose [Mass/Vol] 101 mg/dL 70-100 [facility] Comment on above: ADA recommended refe rence rangeRandom Glucose Reference Range is dependent on time and content of last meal. Glucose of more than 200 mg/dL in a nonstressed, ambulatory subject supports the diagnosis of Diabetes Mellitus. Hematocrit Auto (Bld) [Volum e fraction]Ordered By: Marques Oliva on 05-27-2023 Hematocrit (Bld) [Volume fraction] 35.5 % 34.0-46.4 [facility] Hemoglobin [Mass/volume] in BloodOrdered By: Marques Nascimentodara on 05-27-2023 Hemoglobin (Bld) [Mass/Vol] 11.9 g/dL 11.8-15.4 [facility] Iron [Mass/volume] in Serum or PlasmaOrdered By: Marques Nascimentodara on 05-27-2023 Iron [Mass/Vol] 37 ug/dL 50-212 [facility] Iron binding capacity [Mass/ volume] in Serum or PlasmaOrdered By: Marques Nascimentodara on 05-27-2023 Iron binding capacity [Mass/Vol] 466 ug/dL 255-450 [facility] Iron saturation [Mass Fracti on] in Serum or PlasmaOrdered By: Marques Nascimentodara on 05-27-2023 Iron saturation [Mass fraction] 7.9 % 20-50 [facility] Leukocytes [#/volume] correc solange for nucleated erythrocytes in Blood by Automated counOrdered By: Marques Azamdara on 05-27-2023 WBC corrected for nucl RBC Auto (Bld) [#/Vol] 6.5 10*3/uL 3.8-11.6 [facility] Lipid Panelon 05-27-2023 Cholesterol [Mass/Vol] 200 mg/dL Normal 140-200 [facility] Comment on above: Result Comment: Chol less than 200 mg/dl low risk Chol 201-239 mg/dl borderline risk Chol 240 mg/dl and greater high risk Performed By: #### V [id number], TSH3, T3T, T4F, LIPID, FE PRO, CMP, CBC #### [facility] [address] Cholesterol in HDL [Mass/Vol] 72 mg/dL Normal 23-92 [facility] Comment on above: Result Comment: HDL CHOL ATP-III CLASSIFICATION Cardiovascular Risk HDL > or equal to 60 mg/dL LOW HDL < 40 mg/dL HIGH Performed By: #### V [id number], TSH3, T3T, T4F, LIPID, FE PRO, CMP, CBC #### [facility] [address] [place] [address] [facility] Cholesterol.total/Choles terol in HDL [Mass ratio] 2.8 {ratio} Normal <5.0 [facility] Comment on above: Performed By: #### V [id number], TSH3, T3T, T4F, LIPID, FE PRO, CMP, CBC #### [facility] [address] LDL Cholesterol,Calculated 106 mg/dL High 0-100 [facility] Comment on above: Result Comment: LDL ATP III CLASSIFICATION LDL less than 100 mg/dL Optimal LDL 100-129 mg/dL Near or above optimal LDL 130-159 mg/dL Borderline high LDL 160-189 mg/dL High LDL greater than 189 mg/dL Very high Performed By: #### V [id number], TSH3, T3T, T4F, LIPID, FE PRO, CMP, CBC #### [facility] [address] Triglyceride w/Reflex 112 mg/dL Normal 0-[address] [facility] Comment on above: Result Comment: TRIG ATP III CLASSIFICATION TRIG less than 150 mg/dL Normal TRIG 150-199 mg/dL Borderline high TRIG 200-500 mg/dL High TRIG greater than 500 mg/dL Very high Standard traceable to the Center for Disease Conrtrol and Prevention (CDC) test method. Performed By: #### V [id number], TSH3, T3T, T4F, LIPID, FE PRO, CMP, CBC #### [facility] [address] VLDL CHOLESTEROL 22 mg/dL Normal [facility] Comment on above: Performed By: #### V [id number], TSH3, T3T, T4F, LIPID, FE PRO, CMP, CBC #### [facility] [address] Lymphocytes Auto (Bld) [#/Vo l]Ordered By: Marques Oliva on 05-27-2023 Lymphocytes (Bld) [#/Vol] 1.7 10*3/uL 1.00-4.8 [facility] Lymphocytes/100 WBC Auto (Bl d)Ordered By: Marques Oliva on 05-27-2023 Lymphocytes/100 WBC (Bld) 26.7 % . [facility] MCH Auto (RBC) [Entitic mass ]Ordered By: Marques Oliva on 05-27-2023 MCH (RBC) [Entitic mass] 27.7 pg 24.7-34.3 [facility] MCHC Auto (RBC) [Mass/Vol]Or dered By: Marques Oliva on 05-27-2023 MCHC (RBC) [Mass/Vol] 33.5 g/dL 32.0-35.0 [facility] MCV Auto (RBC) [Entitic vol] Ordered By: Marques Oliva on 05-27-2023 MCV (RBC) [Entitic vol] 82.6 fL 80-100 [facility] Monocytes Auto (Bld) [#/Vol] Ordered By: Marques Oliva on 05-27-2023 Monocytes (Bld) [#/Vol] 0.5 10*3/uL 0.0-0.8 [facility] Monocytes/100 WBC Auto (Bld) Ordered By: Marques Oliva on 05-27-2023 Monocytes/100 WBC (Bld) 8.0 % . [facility] Neutrophils Auto (Bld) [#/Vo l]Ordered By: Marques Oliva on 05-27-2023 Neutrophils (Bld) [#/Vol] 3.9 10*3/uL 1.8-7.7 [facility] Neutrophils/100 WBC Auto (Bl d)Ordered By: Marques Oliva on 05-27-2023 Neutrophils/100 WBC (Bld) 59.8 % . [facility] No Panel InformationOrdered By: Marques Oliva on 05-27-2023 Estimated GFR (CKD-EPI) > 60.0 mL/Min [facility] Creatinine Clearance (Chem N/A [facility] Nucleated erythrocytes [Pres ence] in Blood by Automated countOrdered By: Marques Oliva on 05-27-2023 Nucleated RBC Auto Ql (Bld) 0.1 /100{WBC} 0-0.5 [facility] Platelet mean volume Auto (B ld) [Entitic vol]Ordered By: Marques Oliva on 05-27-2023 Platelet mean volume (Bld) [Entitic vol] 7.4 fL 6.3-10.7 [facility] Platelets Auto (Bld) [#/Vol] Ordered By: Marques Oliva on 05-27-2023 Platelets (Bld) [#/Vol] 360 10*3/uL 150-450 [facility] Potassium [Moles/volume] in Serum or PlasmaOrdered By: Marques Oliva on 05-27-2023 Potassium [Moles/Vol] 4.6 mmol/L 3.5-5.[address] [facility] Protein [Mass/volume] in Ser um or PlasmaOrdered By: Marques Oliva on 05-27-2023 Protein [Mass/Vol] 6.9 g/dL 6.4-8.9 [facility] RBC Auto (Bld) [#/Vol]Ordere d By: Marques Oliva on 05-27-2023 RBC (Bld) [#/Vol] 4.30 10*6/uL 3.60-5.00 [facility] Serum or plasma albumin/glob ulin mass ratioOrdered By: Marques Oliva on 05-27-2023 Albumin/Globulin [Mass ratio] 1.7 {ratio} [facility] Serum or plasma anion gap de terminationOrdered By: Marques Oliva on 05-27-2023 Anion gap [Moles/Vol] 11.4 mmol/L 6.0-15.0 [facility] Serum or plasma high density lipoprotein (HDL) cholesterol measurementOrdered By: Marques Oliva on 05-27-2023 Cholesterol in HDL [Mass/Vol] 72 mg/dL 23-92 [facility] Comment on above: HDL CHOL ATP-III CLA SSIFICATION Cardiovascular RiskHDL > or equal to 60 mg/dL LOWHDL < 40 mg/dL HIGH Serum or plasma total choles terol/high density lipoprotein (HDL) cholesterol mass ratOrdered By: Marques Oliva on 05-27-2023 Cholesterol.total/Choles terol in HDL [Mass ratio] 2.8 {ratio} <5.0 [facility] Sodium [Moles/volume] in Ser um or PlasmaOrdered By: Marques Oliva on 05-27-2023 Sodium [Moles/Vol] 139 mmol/L 136-145 [facility] Thyroid Stimulating Hormoneo n 05-27-2023 TSH Qn 2.09 m[IU]/L Normal 0.45-5.33 [facility] Comment on above: Result Comment: PERF ORMED BY: [place] [address] PATHOLOGIST BUCKLE SORTER CHRIS BONILLA M.D. Performed By: #### V [id number], TSH3, T3T, T4F, LIPID, FE PRO, CMP, CBC #### [facility] [address] [place] [address] Thyrotropin [Units/volume] i n Serum or PlasmaOrdered By: Marques Oliva on 05-27-2023 TSH Qn 2.09 m[IU]/L 0.45-5.33 [facility] Thyroxine (T4) free [Mass/vo lume] in Serum or PlasmaOrdered By: Marques Oliva on 05-27-2023 Free T4 [Mass/Vol] 0.80 ng/dL 0.61-1.12 [facility] Transferrin [Mass/volume] in Serum or PlasmaOrdered By: Marques Oliva on 05-27-2023 Transferrin [Mass/Vol] 333 mg/dL 203-362 [facility] Triglyceride [Mass/volume] i n Serum or PlasmaOrdered By: Marques Oliva on 05-27-2023 Triglyceride [Mass/Vol] 112 mg/dL 0-149 [facility] Comment on above: TRIG ATP III CLASSIF ICATIONTRIG less than 150 mg/dL NormalTRIG 150-199 mg/dL Borderline highTRIG 200-500 mg/dL High TRIG greater than 500 mg/dL Very highStandard traceable to the Center for Disease Conrtrol and Prevention (CDC) test method. Triiodothyronine (T3) Totalo n 05-27-2023 Triiodothyronine (T3) Total 1.08 ng/mL Normal 0.87-1.78 [facility] Comment on above: Performed By: #### V [id number], TSH3, T3T, T4F, LIPID, FE PRO, CMP, CBC #### [facility] [address] Triiodothyronine (T3) [Mass/ volume] in Serum or PlasmaOrdered By: Marques Oliva on 05-27-2023 T3 [Mass/Vol] 1.08 ng/mL 0.87-1.78 [facility] Urea nitrogen [Mass/volume] in Serum or PlasmaOrdered By: Marques Oliva on 05-27-2023 Urea nitrogen [Mass/Vol] 16 mg/dL 7-25 [facility] Vit. B12/Folate Profileon Cobalamin (Vitamin B12) [Mass/Vol] 219 pg/mL Normal 180-914 [facility] Comment on above: Performed By: #### V [id number], TSH3, T3T, T4F, LIPID, FE PRO, CMP, CBC #### [facility] [address] Folate 13.7 ng/mL Normal >5.9 [facility] Comment on above: Result Comment: Thu te reference range: >5.9 ng/ml The WHO technical consultation on folate and vitamin b12 deficiencies has determined that folate concentrations less than 4 ng/ml are considered deficient. Performed By: #### V [id number], TSH3, T3T, T4F, LIPID, FE PRO, CMP, CBC #### [facility] [address] Vitamin B12 ser/plasOrdered By: Marques Oliva on 05-27-2023 Cobalamin (Vitamin B12) [Mass/Vol] 219 pg/mL 180-914 [facility] WBC Auto (Bld) [#/Vol]Ordere d By: Marques Nascimentodara on 05-27-2023 WBC (Bld) [#/Vol] 6.5 10*3/uL 3.8-11.6 [facility] US Thyroidon 04-23-2022 US Thyroid History: [...] by Garcia Nye on 04/23/2022 1517 Normal [facility] [employer] Coding Summaryon 11-05-2021 Coding Summary HTMLBase 64 KywggestBWy1aMe+PGhlY WQ+IC1ZNAEpZ42wnJWfvT 8HK3qOQB0GDHRDCESTUV5 TZQ3kiQY6DVcpA4MhesJz MknyiIObLA74MWs0IIK5v AtqZPbdmK2viEKkA7j9Vo FdAG68xT40VRmlNLEjGvZ 3LjZpbjsgbWFy D0dmOmBnvRVsGor+PHRhY mxlIHdpZHRoPScxMDAlJy MokFhnQA0bTo9wROWbBAS vbGxhcHNlOiBj s8pxDTLaSQcpPL2qcIboM 5TpqHG1ODBdg3m4Jb43nL I+MVYeKML9eFaiWXffa43 3OzLlw7lxYWF6 pIJvIYyjTDY0F08cp2S0Q TEgRODtWRC9vOI8kC6naD liwuxgS4LuuOZzLyC3GKM 1sMAlsT9tlLum mzjghO6oIgf+F41MRT6UB AETMX8AJsd3H7LfJqpdgJ I+AM94IMMiEA87xVLkzYY vo4rxvCt9YsJc ECOsXEV0fOkeAVidv0LmG YYkH74cuREhg6U9VMDkjH xbyGWgTcCznZX9sM1rVBy tqkslp2qbbycb Xhkgc7uusu17tS57Q20aE AgyZOCnWGI0TOWwLDYjdJ ruum1orV7cNn4+FQtry8e vl4gqbPu6SmLe IGWileKoxFniRHX4o4IcH c47D3EymVvig5LhQjb0ft 67zDIvb9E0zWD9SJpeKYT hjQ4hCLspRuH5 TSVpQzNfyJ81eMOcGUfhU h5nyRkpfMuaSX3iHNIcmg coVXUhfI0mMBYrnPGzjAw gDF9dCSBfgxrr h364PdEaZWI6QJYfeRFkQ 9JmeR9bRpJvUDOvUXMcL5 DsnBJlQQqzF562NHizLpW 5FTHobqFrJ8Ut WORiwLyoMhO5u3O8Qt0Og 8MayfzlZAM4PDhpHHY1Ue ZmSnOfOhV0E8PsQan6XOH cqZfrJV4iD3Bp MEBlsfzwxzaukUC9QQJvH NHkiG99sLYlHFsoUz4fu1 Q0l543TALjNSGxeJ07Tw3 udDogMTBwdCBU fC8iwqcer3frxxqeMcXgY PWzDKn4WNt1ZVUiaNezQn WaPTP9XoG6CWK3bWBjxY2 rnTiqevrzyU1w Oyc+E25njB2oVEE7TZO7g nhaAMGozxKyVF76SG87J0 RyPjwvdGFibGU+PGRpdiB skVurQB8iGzJh u3jlx1HsQFwnZ4RmUOKtO AzeWfp4BYXnXYU7qVO2lS 9eHDPsYThxb0X7oHG7S8A ootSneq2ap6dw QUVuZJvfG53uvBVyt0T7M PApeOD8DHNnsDwzRwDbaT 93Oyc+YHHjmQfbf6QuGpy cb1pxw6nimLq9 CtQfGUQudoTqeSvkIXC0c 1YzBy78K73oNJcbIYYfGP OoSPCvVWUifBpvsn6cuF2 wIi8+PGNvbCB3 gFI3sK7jRFDhOxL6CSglF 419KoOhxNBfPcgts8kby9 hraTs9VcJpTVUwdjPziNr mAAM1j1AbTs90 G82yORdkIRXbIMOfJHVyP ZIetChyrq8mqB0zMk5+PC 3ht8txpr13zB62hTK+PHR zOPT2uQhtGJal OBOkfB5eIVweAuJ6MBMiA yXriF17mBJlBBypIq0bdH hnxOtsUG5qXMJxxqdcb18 9HeLzg6rqHKHm bMKpQPduRFC6S81tl9U3H VRfNAEgTKW4zGE8tI3dgE lnbjogbGVmdDsgdmVydGl eDRfcAItiO933 IHRvcDsnPlBhdGllbnQgT nTbRZs4H0GwWng3ZGZkyD evEA4ifDWjBIpfRy2eaBe iuPinIS4mEGSl iodpc697KsBbn6oiZPRjp EQhKNmfVKC9W22ox4L6PA ZwBWCyOAQ5jHM5gQ2hfVs nbjogbGVmdDsg dqIntNpmEKjhCTbjY742D HRvcDsnPkJpcnRoIERhdG S2XD58EJ58xGCax9M8zRE 2T7GlEGMqvpdy mpbkjRP2COEeZFQwcG62F q6ukIpsWl1jWWJuZBE1IY FwxTCqR3QmjZ4pIrUlRNA fTCPgN0RftRCc LVzlR124QQcrEhQ2PRVpl vDvH5OyFOKcaNrlTbW3j9 M7Zg9OC0M0AT36BM51lAZ gl1T7hUU2J9Hv JHOgnprpuvzfsJX1FKQzL QZstL95Cq9gtPztQh1sNC GlYDJ0JSQloDMjQ7GmiA2 yOiAjMDAwMDAw S5SjoRUcHGnuW090HIwqX yK2RVQhriLsI4JjJIZniV wyWmH3x3T4Ds1RNZz8HD0 1ZU43fOJsd4V5 rMS1M8RgZWMduegurbslk GO9LZLrIKEudB42Yq2lkV mpVf5oPEIwMRY5WCMwfDT bX8GtgX5jMxIb SARiSLZaI7KvqITkTPakW 061XEbeUeU4JGCobcPyM2 JeNCIrfCpfTdM6k2D8Yf0 RGWQxQQ76VZA5 fLW6JH05JL01F1FoPaqsu GFibGU+PHRhYmxlIHdpZH RoPScxMDAlJyBzdHlsZT0 tAi5uMRIxOAIc hXlrvHIjAsNhr1btFDAbB UpjSG8ogSoaH7QbsTD7WW Ntk6h7Gf11M05kD6NmmTW +JLLwhSN4mTH4 dW4jIjCrUuX5JUtpW322F gAyeQYrQzdib5bjn2tyyR j4RzC1VOMndgQcfCagWVG 2x1DvZh08A29y IHdpZHRoPSIxNSUiIHZhb Mcehi4itC4aFg8+PGNvbC W8qOI3kV7wRwEvCvJ0CAa cK357HbCefVMp Ifcms8wko7ksoSz0BqHhT VSxxmSjyLdqMUI6k3XxUk 73F8FdvJzul2IeTbp7sr0 0hQOam6S0pDV6 P1KgCNWrucyuwANdnZeeD V6mZANzjwjnWPLkdY7yVD DuN6j9GgRpFzF2WJtcP8U jivC1GKKxuDFc JBesSXN9Y72ww1H4FMUhC AWjHYQ2qPR6tV2wpWcngl ogbGVmdDsgdmVydGljYWw mTFxcG963EJGm jMhbFPEgdX9sQQMwlKLuw QerLO3lQPOuziqtHvKQTB 3YHF1xSUVGTPtTIWLWBHF NQVJJRTwvdGQ+ EFMmUHH5iYfmFNbyJBSdy K8vRNHyM5i8AwDmCnG9TD qnG5AuFTHfmcgaJc26iH3 gUlJoLwK1ARre D6ZgwkL0FJFprSJhYWakT AN1B97iw2B7CNHiXHFgMM U9jPK6mD8ghBbncpypyPU mdDsgdmVydGlj WMpeKWryN175NAFinZumK yUwKdE7UuB2JcH3W4BgZj t9YEOezZunKY0kzAQeHQe sKj2laYdavVxz GV6uORGnxcpvBOJvjK0vC JMglQPprDciEQ4sFYJsio dfn166DcRyDWL2GEMyzPZ fJ0TlsQ1cCpBz TEBwJFLpF3RbeXOdBRxtV 823KKgoIyG1KMXtvgPqK2 YuDRFitPpsHaF7r2K1Yr9 1MSBZZWFyczwv dGQ+GIIiOOX8wGwfIOegW RBeyB7sPPYmD4v9TyVhWu L3AUxsZ9GpVYWglxatBz7 0iC0mWzUmFaY9 XMoxC3RvtuM5RJDjeMLhF ZbpSLY4P18eg9Y9FOQzKT GtFHX9zLW6lT2pySogjyg gbGVmdDsgdmVy lQikMSsePXsaD646ZSNtc DsnPkZFTUFMRTwvdGQ+PH WpTXX6hYbzRUowBRObuG2 eIRYlQ9x1TzAn ZdG9GQqnP4InGBBygemlE t34qT9hHlOgTtS7BFckG7 WtslG3DRVbtYAdJGguJZJ 5T88ld1S2XTMq LWNmCGX6jCU5aL4clWrux jogbGVmdDsgdmVydGljYW lhFSycK260JUBnwGrzKt7 BST79IX63I0Ub PjwvdGFibGU+PHRhYmxlI HdpZHRoPScxMDAlJyBzdH wfQD3aUk1eQMWcDYIyfPx vtXYwQxAxe3rw KFLbPFobVB6alTelJ8Zrv YU8JNZgz8j1Hj29M30jD2 JvdXA+TXSgmVU1iIC4iW1 pOeLdCkG8YJyz K016UuJvnBTcAccim3rnw 7tmsGm8VnDcWXInpzTxcW dvUUF5p0RfTn35J76tQBd pZHRoPSIyMCUi SNGkkPxlto7emK0eGl5+P QVthPB7rYW9wV2sBqWoKa X5BTqfU074GdBlwMRnWtn uW57jS3ZxxOA+ HOHtQgj8OCAsqCghRZ6wl QJpMFqmNc7zAIS3SjQbLw RbRHxqY2DyNNStftmbniq pjUE6EBVxNFPa vO36Il9hyNxwYy8hUDHuE LC2ZSHsjNTtX8NkgC1vXm EgUIVgKAJzT1BmqUPbAQl nX557XJuxCbK7 VSTuwaZiS8AkPXNhxFejK qR3e4C2Nt3KxIakjOFmTZ 1tJaWrELb7C2QhJvd5QUD pxLdlEN6tzLRw GQnwZo1lpWvvfSxfBL5aC QMtwityg804TrHve9joMC AzmQNfMFdmHBT6G87ga5K 2FQZkVHVnBSZ8 rWE0lO9yrMdqutpmsASoa DsgdmVydGljYWwtYWxpZ2 49BVGhaWyuGrVRAco8Q6K oAyo8DDQkvOki FV5bwUVcUHgmBx0aaZjjh KuhRS7eLLNiopwex504Xx Ltk3qaZZNneNKtWImtJXO 2V05vc9I0ZXWh UEVxXEO7bXL5eV9lyJany jogbGVmdDsgdmVydGljYW ozEWrpY232FCBmaXvrGo0 ECio0B4BdUws0 ZCAgjCztCP2vvEGyBOlsD z5cnZfwhLedIX2hVPJvvv uwl239RiRtf5wtFLCrmDS tBUbpAYN3L33c l3G1RLPzQCCgKWX8rUS6k C4edZszbtyovHKpuUzvmg GivNetKThtLEtzF111OEY vcDsnPlBheWVy OjwvdGQ+VK32uj54X3VdA ymvHyp8OHXzCEI5nIR7jJ 0vNVPiJKejz9S7wWO4W3U zbjZvgb2kj8kt YXB (more content not included)... Normal [facility] ED Clinical Summaryon 2021 ED Clinical Summary [facility] [address] [place] [address] [place], [place] [id number] Clinical Summary PERSON INFORMATION Name: JESSIE DOWLING Age: 51 Years Sex: FEMALE : 1970 MRN: Acct#: Visit Reason: UC - Ankle/Foot/Toe Pain or Swelling; LEFT ANKLE PAIN/INJURY Arrival: 10/31/2021 10:43:27 Discharge: 10/31/2021 13:15:00 LOS: 000 02:32 Check In: 10/31/2021 10:43:27 Checkout: 10/31/2021 13:15:00 Address: [address] [place] [id number] PCP: IRINA OLIVA PROVIDER INFORMATION Provider Role [...] Home PATIENT EDUCATION INFORMATION Instructions: Hypertension, Adult, Ltjh-kp-Xblz; Ankle Sprain, Jekj-xk-Kqck Follow-Up: With: Address: When: IRINA Kruse [address] [facility] [address] [place] [address] Business (1) Comments: Radiologist interpretation negative for fracture If the pain continues or fails to resolve Follow-up with Dr. Trivedi personal loan specialist Dr. Trivedi's office is located at [address] [place] [address] Wear the Alfa wrap while active, remove [...] verbalizes understanding of instructions given Comment: Normal [facility] ED Patient Summaryon 022 ED Patient Summary [facility] ? [facility] Care [address] [place] [address] [place], [place] [id number] PATIENT DISCHARGE INSTRUCTIONS Patient Information Name: JESSIE DOWLING Age: 51 Years Date of : 1970 Reason For Visit: UC - Ankle/Foot/Toe Pain or Swelling; LEFT ANKLE PAIN/INJURY Arrival Time: 10/31/2021 10:43:27 Primary Care Physician: IRINA OLIVA Attending Physician: Pete Bishop Comment: Patient Education With: Address: [facility] [address] [place] [address] [employer] (1) Comments: Radiologist interpretation negative for fracture If the pain continues or fails to resolve Follow-up with Dr. Trivedi personal loan specialist Dr. Trivedi's office is located at [address] [place] [address] Wear the Alfa wrap while active, remove [...] cigarettes, e-cigaret (more content not included)... Normal [facility] Test Urine U Preg Negative Normal [facility] Comment on above: Performed By: #### [id number] #### [facility] (DEFAULT) [address] [place] [address] U Preg Internal Control Pass Normal [facility] Comment on above: Performed By: #### [id number] #### [facility] (DEFAULT) [address] [place] [address] Urgent Care Note- Provideron 10-31-2021 Urgent Care [...] Impression and Plan Diagnosis Left ankle pain (MWU52-XG M25.572, Discharge, Medical) Elevated blood pressure reading (WYC39-ZZ R03.0, Discharge, Medical) Left ankle sprain (LLX53-TZ S93.402A, Discharge, Medical) Plan Patient was given the following educational materials: Ankle Sprain, Plar-wt-Ixvv, Ankle Sprain, Xiwk-oo-Axjz, Hypertension, Adult, Mwij-de-Tlla. Follow up with: IRINA OLIVA Radiologist interpretation negative for fracture (more content not included)... Normal [facility] [place] 022 Urgent Care Record [facility] ? Urgent Care [address] [place] [address] PATIENT DISCHARGE INSTRUCTIONS Patient Information Name: JESSIE [...] (S93.402A) UC - Ankle/Foot/Toe Pain or Swelling ([id number]) If you received any narcotics, sedation, or [...] legal documents With: Address: When: IRINA OLIVA [facility] [address] [facility] [address] [place] [address] Business (1) Comments: Radiologist interpretation negative for fracture If the pain continues or fails to resolve Follow-up with Dr. Trivedi personal loan specialist Dr. Trivedi's office is located at [address] [place] [address] Wear the Alfa wrap while active, remove [...] and treatment you received today in the [facility] were for an urgent problem and are not intended as complete care. It is important for you to follow up with a doctor, nurse practitioner, or physician?s plastic surgery assistant for ongoing care. If your symptoms [...] so we can reach you if necessary. [facility] has provided you with a complete list of medications post discharge. Please inform your rehabilitation counsellor/provider of your visit and for further instruction [...] your ankle o (more content not included)... [facility] XR Ankle Complete Lefton XR Ankle [...] Christianson MD 10/31/21 12:37 p Technologist: JOSE [facility] Vital Signs Date Time Vital Sign Value Performing Clinician Eugenio marcial 05-27-2023 08:45-0500 Body height 167.64 cm Lisandro Montes Other [employer] Other 05-27-2023 08:45-0500 Body mass index (BMI) [Ratio] 32.76 kg/m2 Lisandro Montes Other [employer] Other 05-27-2023 08:45-0500 Body temperature 96.5 [degF] Lisandro Montes Other [employer] Other 05-27-2023 08:45-0500 Body weight 92.08 kg Lisandro Torresno Other [employer] Other 05-27-2023 08:45-0500 Diastolic blood pressure 75 mm[Hg] Lisandro Montes Other [employer] Other 05-27-2023 08:45-0500 Respiratory rate 20 /min Lisandro Montes Other [employer] Other 05-27-2023 08:45-0500 SaO2% (BldA) [Mass fraction] 100 % Lisandro Montes Other [employer] Other 05-27-2023 08:45-0500 Systolic blood pressure 115 mm[Hg] Lisandro Montes Other [employer] Other 03-07-2022 10:30-0400 Body height 167.64 cm Lisandro Montes Other [employer] Other 03-07-2022 10:30-0400 Body mass index (BMI) [Ratio] 32.92 kg/m2 Christleydier Jyoti Other [employer] Other 03-07-2022 10:30-0400 Body temperature 97.5 [degF] Christopher Jyoti Other [employer] Other 03-07-2022 10:30-0400 Body weight 92.53 kg Christopher Jyoti Other [employer] Other 03-07-2022 10:30-0400 Diastolic blood pressure 85 mm[Hg] Christleydier Jyoti Other [employer] Other 03-07-2022 10:30-0400 Respiratory rate 20 /min Dreer Jyoti Other [employer] Other 03-07-2022 10:30-0400 SaO2% (BldA) [Mass fraction] 97 % Christleydier Jyoti Other [employer] Other 03-07-2022 10:30-0400 Systolic blood pressure 133 mm[Hg] Dreer Jyoti Other [employer] Other 03-08-2021 10:30-0400 Body height 167.64 cm Christleydier Jyoti Other [employer] Other 03-08-2021 10:30-0400 Body mass index (BMI) [Ratio] 36.8 kg/m2 Christopher Jyoti Other [employer] Other 03-08-2021 10:30-0400 Body temperature 96.9 [degF] Dreer Jyoti Other [employer] Other 03-08-2021 10:30-0400 Body weight 103.42 kg Lisandro Montes Other [employer] Other 03-08-2021 10:30-0400 Diastolic blood pressure 84 mm[Hg] Lisandro Montes Other [employer] Other 03-08-2021 10:30-0400 Respiratory rate 20 /min Lisandro Montes Other [employer] Other 03-08-2021 10:30-0400 SaO2% (BldA) [Mass fraction] 100 % Lisandro Montes Other [employer] Other 03-08-2021 10:30-0400 Systolic blood pressure 160 mm[Hg] Lisandro Montes Other [employer] Other Encounters Encounter Date Encounter Type Care Provider Facility Start: 06-04-2023 End: 06-05-2023 ambulatory IRINA OLIVA Not Available Start: 06-02-2023 End: 06-02-2023 ambulatory PAOLA SHORT Not Available Start: 05-30-2023 End: 05-30-2023 ambulatory Milka Oliva Facility:[facility] Start: 05-27-2023 Office outpatient visit 15 minutes Lisandro Montes [facility] Start: 05-27-2023 End: 05-27-2023 ambulatory Milka Oliva Facility:[facility] Start: 05-27-2023 End: 05-27-2023 ambulatory DO Milka Oliva Work Phone: [facility] [employer] Other Start: 05-27-2023 End: 05-27-2023 Patient encounter procedure DO Milka Oliva Work Phone: [facility] [place] Work Phone: Start: 03-07-2022 End: 03-07-2022 ambulatory Lisandro Montes Other [employer] Other Start: 03-07-2022 Office outpatient visit 15 minutes Lisandro Montes [facility] Start: 09-11-2021 End: 09-11-2021 ambulatory Lisandro Montes Other [employer] Other Start: 09-11-2021 Telephone encounter Lisandro johnsono [facility] Start: 03-08-2021 Office outpatient visit 15 minutes Lisandro Torresno [facility] Payers Date Payer Category Payer Unknown [id number] 1970 Unknown [id number] 1970 Unknown [id number] 1970 Unknown [id number] Medicaid [place] [employer] [id number] Self-pay Self Pay [id number] Social History Date Type Detail Facility Sex Assigned At [employer] Other Start: 1970 Sex Assigned At Female F [facility] Evaluation note 05-27-2023 Note Date & Type Note Facility 05-27-2023 Evaluation note Encounter Date Diagnosis Assessment Notes May, Asthma, mild persistent (ICD-10 - J45.30) May, Pulmonary nodules (ICD-10 - R91.8) [facility] [employer] Other Evaluation note 09-22-2022 Note Date & Type Note Facility 03-07-2022 Evaluation note Encounter Date Diagnosis Assessment Notes Feb, Asthma, mild persistent (ICD-10 - J45.30) Feb, Pulmonary nodules (ICD-10 - R91.8) [employer] Other Clinical Note 10-31-2021 Note Date & [...] doctor. This is important. Medicines ? Take ufry-sfx-pkvbrly and prescription medicines only as told by [...] forces your h (more content not included)... [facility] Evaluation note 03-08-2021 Note Date & Type Note Facility 03-08-2021 Evaluation note Encounter Date Diagnosis Assessment Notes Feb, Asthma, mild persistent (ICD-10 - J45.30) Feb, Pulmonary nodules (ICD-10 - R91.8) [employer] Other Evaluation note Note Date & Type Note Facility Evaluation note No Information [employer] Other Evaluation note Note Date & Type Note Facility Evaluation note No assessment information [facility] Work Phone: History general Narrative - Reported [...] see surgical hx Hospitalization History back injury [facility] ER 01/2020 Hospitalization History [employer] bronchitis [employer] Other History general Narrative - Reported Note [...] ER 01/2020 Hospitalization History [employer] bronchitis [employer] Other Summary Purpose Family History No Family [...] section and content) DATE CREATED AUTHOR 11/06/2021 [facility] DATE CREATED AUTHOR AUTHOR'S ORGANIZ ATION 04/24/2022 [facility]ical Specialist DATE CREATED AUTHOR AUTHOR'S ORGANIZ ATION 06/01/2023 [facility] DATE CREATED AUTHOR AUTHOR'S ORGANIZ ATION 06/08/2023 [facility] dical Specialists EPIC REASON FOR [...] BE BASED ON THE PRIMARY CLINICAL RECORDS. [facility] [employer] [facility]. provides no warranty or guarantee of the accuracy or completeness of information in this document.
== END 2023-06-12 10:25 | disposition home or self-care (01) ==
LOC: VC 10:24
PROVIDERS: PCP Radiology Diagnostic Radiology; Visit Provider Radiology Diagnostic Radiology
DX: I83.813 Varicose veins of bilateral lower extremities with pain (principal)
CPT/HCPCS: 36471